=== PATIENT | male | born 1965 | race American Indian/Alaskan Native ===

== ENCOUNTER 2017-07-15 09:48 | Inpatient (IN) | payer OTHER ==
[2017-07-15 09:49] VITALS: BMI 26.5
[2017-07-15 10:33] LABS: BASO # 0.03 K/mm3 (0.0-2.0); BASO % 0.4 % (0.0-3.0); EOS # 0.4 (0.0-0.7); EOS % 5.1 % (1.5-5.0); GRAN # 4.72 (1.4-6.5); GRAN % 67.5 % (50.0-68.0); HEMOGLOBIN 12.4 g/dL (14.0-18.0); LYMPH # 1.3 (1.2-3.4); LYMPH % 18.3 % (22.0-35.0); MEAN CELL VOLUME 92.4 fl (80.0-105.0); MEAN CORPUSCULAR HEMOGLOBIN 31.6 pg (25.0-35.0); MEAN CORPUSCULAR HGB CONC 34.2 g/dl (31.0-37.0); MONO # 0.6 (0.1-0.6); MONO % 8.7 % (1.0-6.0); RBC 3.93 10^6/uL (3.5-6.1); RED CELL DISTRIBUTION WIDTH 15.1 % (11.5-14.5)
[2017-07-15] MEDS ORDERED: Albuterol-Ipratrop 3 mg / 0.5 (3 ml) UD IH STA (10:33)
--- NOTE | 2017-07-15 10:33 | ED PDOC ---
Arrival/HPI - General Chief Complaint: Shortness Of Breath Time Seen by Provider: 07/15/17 09:52 Historian: Patient - History of Present Illness Narrative History of Present Illness (Text): 07/15/17 10:31 Patient is a 52 yo male states past medical history of hypertension, renal disease, presents to the Emergency Department complaining of shortness of breath over the past 3 days. Patient states he "woke up feeling short of breath " and it is worse with exertion and activity. Denies chest pain. Denies abdominal pain. Denies leg pain or swelling. No recent travel. No prior history of asthma or smoking. Denies hemoptysis or productive sputum. No sore throat. Time/Duration: Prior to Arrival Symptom Onset: Gradual Past Medical History - Infectious Disease Hx of Infectious Diseases: None - Tetanus Immunization Tetanus Immunization: Unknown - Cardiac Hx Hypertension: Yes - Pulmonary Hx Respiratory Disorders: No - Neurological Hx Neurological Disorder: No - HEENT Hx HEENT Disorder: No - Renal Hx Renal Disorder: No - Endocrine/Metabolic Hx Endocrine Disorders: No - Hematological/Oncological Hx Blood Disorders: No - Integumentary Hx Dermatological Disorder: No - Musculoskeletal/Rheumatological Hx Musculoskeletal Disorders: No - Gastrointestinal Hx Gastrointestinal Disorders: No - Genitourinary/Gynecological Hx Genitourinary Disorders: No - Psychiatric Hx Psychophysiologic Disorder: No Hx Depression: No Hx Emotional Abuse: No Hx Physical Abuse: No Hx Substance Use: No - Past Surgical History Past Surgical History: Non-Contributing - Suicidal Assessment Feels Threatened In Home Enviroment: No Family/Social History Family/Social History: Unknown Family HX Smoking Status: Never Smoked Hx Alcohol Use: Yes Hx Substance Use: No Allergies/Home Meds Allergies/Adverse Reactions: Allergies lisinopril Allergy (Verified 07/15/17 09:49) ANAPHYLAXIS Home Medications: Home Meds Medication Instructions Recorded Confirmed Simvastatin [Zocor] 0 mg PO DAILY 07/15/17 07/15/17 amLODIPine [Norvasc] 10 mg PO DAILY 07/15/17 07/15/17 cloNIDine [Catapres] 0.1 mg PO BID 07/15/17 07/15/17 Review of Systems - Review of Systems Constitutional: Fatigue. absent: Fevers Eyes: absent: Vision Changes, Eye Pain ENT: absent: Hearing Changes, Sore Throat, Rhinorrhea, Epistaxis Respiratory: SOB, Cough Cardiovascular: BRADEN, Orthopnea. absent: Chest Pain, Palpitations, Edema, Calf Pain Gastrointestinal: absent: Abdominal Pain, Constipation, Diarrhea, Nausea, Vomiting Genitourinary Male: absent: Dysuria, Frequency, Hematuria, Urinary Output Changes Musculoskeletal: absent: Back Pain Skin: absent: Rash Neurological: absent: Headache, Dizziness, Focal Weakness Endocrine: absent: Polyuria Hemo/Lymphatic: absent: Easy Bleeding Physical Exam Vital Signs Reviewed: Yes Vital Signs Temp Pulse Resp BP Pulse Ox 07/15/17 12:22 97.8 F 69 18 172/97 H 98 07/15/17 11:53 188/134 H 07/15/17 11:34 72 19 188/134 H 97 07/15/17 10:26 25 H 07/15/17 10:24 98.3 F 85 19 195/143 H 93 L 07/15/17 10:06 84 196/154 H 07/15/17 09:58 84 22 196/154 H 95 07/15/17 09:50 90 26 H 207/113 H 91 L Temperature: Afebrile Blood Pressure: Hypertensive Respiratory Rate: Tachypneic Appearance: Positive for: Ill-Appearing Pain Distress: Moderate Mental Status: Positive for: Alert and Oriented X 3 - Systems Exam Head: Present: Atraumatic Pupils: Present: PERRL Mouth: Present: Moist Mucous Membranes Pharnyx: No: ERYTHEMA Neck: Present: JVD. No: Meningeal Signs Respiratory/Chest: Present: Wheezes, Rales, Tachypneic Cardiovascular: Present: Regular Rate and Rhythm, Murmurs Abdomen: No: Tenderness, Distention Back: No: CVA Tenderness Upper Extremity: No: Cyanosis Lower Extremity: No: Edema, CALF TENDERNESS Neurological: Present: Motor Func Grossly Intact, Normal Sensory Function Skin: Present: Warm Psychiatric: Present: Alert Medical Decision Making ED Course and Treatment: Patient seen upon arrival to [facility]. He is obviously dyspneic when walking to [facility]. Oxygen saturations on room air on my exam 88-89%. He states shortness of breath for several days. States he sees [facility] for medical care, last was three months ago. He states "I know I have a kidney problem but I don't need dialysis". He does not know what his baseline levels are. CXR reveals cardiomegaly, pulmonary edema. saturations improved on nasal cannula, at rest oxygen saturations 98%. He denies chest pain or discomfort. Blood pressure elevated. Clonidine, norvasc given with improvement INITIALLY in BP, however on re- evaluation blood pressure again elevated. In context of pulmonary edema, abnormal EKG, kidney failure, will admit to ICU for BP control, tridil drip initiated. Will admit to hospitalist, and have consulted on-call renal, who has evaluated patient in the ED. Patient will be admitted to ICU for malignant HTN, renal failure, pulmonary edema. On re-exam, denies pain, appears comfortable at rest. He has urinated after Lasix. He denies chest pain. EKG abnormal although no prior for comparison and currently no chest pain or pressure. Initial troponin 0.10. Will monitor in ICU, care turned over to admitting team. - Critical Care Critical Care Minutes: 30 minutes - Lab Interpretations Lab Results: 07/15/17 10:20 07/15/17 11:29 Lab Results 07/15/17 11:30: TSH 3rd Generation 2.08 07/15/17 11:29: pO2 37, VBG pH 7.30 L, VBG pCO2 39.0 L, VBG HCO3 19.2 L, VBG Total CO2 20.4 L, VBG O2 Sat (Calc) 71.4 H, VBG Base Excess -6.7 L, VBG Potassium 4.7, Sodium 138.0, Chloride 109.0 H, Glucose 107, Lactate 1.7, FiO2 21.0, Venous Blood Potassium 4.7 07/15/17 11:29: Sodium 140, Chloride 108 H, Potassium 4.7, Carbon Dioxide 19 L, Anion Gap 17, BUN 52 H, Creatinine 7.6 H*, Est GFR ( Amer) 9, Est GFR ( Non-Af Amer) 8, Random Glucose 108, Calcium 10.0, Total Bilirubin 0.5, AST 28, ALT 29, Alkaline Phosphatase 131 H, Lactate Dehydrogenase 525, Total Creatine Kinase 182, Troponin I 0.10, NT-Pro-B Natriuret Pep > 89535 H, Total Protein 7.4 , Albumin 3.6, Globulin 3.8, Albumin/Globulin Ratio 1.0 L 07/15/17 10:20: PT 12.1, INR 1.05, APTT 30.6 07/15/17 10:20: Influenza Typ A,B (EIA) Negative for flu a/b 07/15/17 10:20: WBC 7.0, RBC 3.93, Hgb 12.4 L, Hct 36.3 L, MCV 92.4, MCH 31.6, MCHC 34.2, RDW 15.1 H, Plt Count 327, MPV 11.0, Gran % 67.5, Lymph % (Auto) 18.3 L, Craig % (Auto) 8.7 H, Eos % (Auto) 5.1 H, Baso % (Auto) 0.4, Gran # 4.72 , Lymph # (Auto) 1.3, Craig # (Auto) 0.6, Eos # (Auto) 0.4, Baso # (Auto) 0.03 - RAD Interpretation Radiology Orders: 07/15/17 09:59 CHEST PORTABLE [RAD] Stat - Medication Orders Current Medication Orders: Amlodipine Besylate (Norvasc) 10 mg PO DAILY DEREK Aspirin (Aspirin Chewable) 81 mg PO DAILY DEREK Atorvastatin Calcium (Lipitor) 10 mg PO DIN DEREK Clonidine HCl (Catapres) 0.1 mg PO Q8H DEREK Folic Acid (Folic Acid) 1 mg IVP DAILY DEREK Furosemide (Lasix) 100 mg IVP Q12 DEREK Furosemide (Lasix) 20 mg IVP Q12 DEREK Heparin Sodium (Porcine) (Heparin) 5,000 units SC Q8 DEREK PRN Reason: Protocol Hydralazine HCl (Apresoline) 10 mg IVP Q6 PRN PRN Reason: SBP > 150 Last Admin: 07/15/17 16:33 Dose: 10 mg IVP Administration Document 07/15/17 16:33 [facility] (Rec: 07/15/17 16:33 [id number] Charges for Administration # of IVP Administrations 1 JUL Pulse and Blood Pressure Document 07/15/17 16:33 [facility] (Rec: 07/15/17 16:33 [facility] [id number]) Pulse Pulse Rate (60-90 beats/min) 6 Blood Pressure Blood Pressure (100/60-150/90 mm Hg) 172/126 Nitroglycerin/Dextrose (Nitroglycerin 50 Mg/250 Ml D5w) 50 mg in 250 mls @ 3 mls/hr IV .Q24H PRN; Protocol; 10 MCG/MIN PRN Reason: Titrate per protocol Last Admin: 07/15/17 14:36 Dose: 10 mcg/min, 3 mls/hr eMAR Start Stop Document 07/15/17 14:36 [email or web address] (Rec: 07/15/17 14:36 [email or web address] [id number]) Intravenous Solution Start Date 07/15/17 Start Time 14:36 End Date 07/15/17 MAR Pulse and Blood Pressure Document 07/15/17 14:36 [email or web address] (Rec: 07/15/17 14:36 [email or web address] [id number]) Pulse Pulse Rate (60-90 beats/min) 73 Blood Pressure Blood Pressure (100/60-150/90 mm Hg) 178/107 Titration Intervention Document 07/15/17 14:36 [email or web address] (Rec: 07/15/17 14:36 [email or web address] [id number]) Titration Intake Waste Amount 0 Container Volume 250 Titration Dosing Titration Dose 10 IV Rate 3 Intake/Decrease Started Ceftriaxone Sodium (Rocephin 1 Gram Ivpb) 1 gm in 100 mls @ 100 mls/hr IVPB DAILY DEREK PRN Reason: Protocol Last Admin: 07/15/17 16:36 Dose: 100 mls/hr eMAR Start Stop Document 07/15/17 16:36 GLI (Rec: 07/15/17 16:36 GLI [id number]) Intravenous Solution Start Date 07/15/17 Start Time 16:36 End Date 07/15/17 Ondansetron HCl (Zofran Inj) 4 mg IVP Q6H PRN PRN Reason: Nausea/Vomiting Pantoprazole Sodium (Protonix Ec Tab) 40 mg PO 1800 DEREK Thiamine HCl (Vitamin B1 Inj) 100 mg IV DAILY DEREK Last Admin: 07/15/17 16:32 Dose: 100 mg eMAR Start Stop Document 07/15/17 16:32 GLI (Rec: 07/15/17 16:32 GLI [id number]) Intravenous Solution Start Date 07/15/17 Start Time 16:32 End Date 07/15/17 Discontinued Medications Albuterol/Ipratropium (Duoneb 3 Mg/0.5 Mg (3 Ml) Ud) 3 ml IH STAT STA Stop: 07/15/17 10:34 Last Admin: 07/15/17 11:13 Dose: 3 ml Amlodipine Besylate (Norvasc) 10 mg PO STAT STA Stop: 07/15/17 11:43 Last Admin: 07/15/17 11:53 Dose: 10 mg MAR Blood Pressure Document 07/15/17 11:53 [facility]ST (Rec: 07/15/17 11:[id number]) Blood Pressure Blood Pressure (100/60-150/90 mm Hg) 188/134 Atorvastatin Calcium (Lipitor) 20 mg PO DIN DEREK Clonidine HCl (Catapres) 0.2 mg PO ONCE STA Stop: 07/15/17 10:03 Last Admin: 07/15/17 10:06 Dose: 0.2 mg MAR Pulse and Blood Pressure Document 07/15/17 10:06 [facility]ST (Rec: 07/15/17 10:[id number]) Pulse Pulse Rate (60-90 beats/min) 84 Blood Pressure Blood Pressure (100/60-150/90 mm Hg) 196/154 Furosemide (Lasix) 20 mg IVP ONCE ONE Stop: 07/15/17 11:29 Last Admin: 07/15/17 11:53 Dose: 20 mg MAR Blood Pressure Document 07/15/17 11:53 [facility] (Rec: 07/15/17 11:[id number]) Blood Pressure Blood Pressure (100/60-150/90 mm Hg) 188/134 IVP Administration Document 07/15/17 11:53 [facility] (Rec: 07/15/17 11:[id number]) Charges for Administration # of IVP Administrations 1 Furosemide (Lasix) 60 mg IVP STAT STA Stop: 07/15/17 13:02 Last Admin: 07/15/17 13:56 Dose: Furosemide (Lasix) 120 mg IVP STAT STA Stop: 07/15/17 13:57 Last Admin: 07/15/17 14:01 Dose: 120 mg MAR Blood Pressure Document 07/15/17 14:01 [facility]RE (Rec: 07/15/17 14:01 SRE [id number]) Blood Pressure Blood Pressure (100/60-150/90 mm Hg) 174/119 IVP Administration Document 07/15/17 14:01 SRE (Rec: 07/15/17 14:01 SRE [id number]) Charges for Administration # of IVP Administrations 1 Pneumococcal Polyvalent Vaccine (Pneumovax 23 Vaccine) 0.5 ml IM .ONCE ONE Stop: 07/15/17 13:31 Disposition/Present on Arrival - Present on Arrival Any Indicators Present on Arrival: No History of DVT/PE: No History of Uncontrolled Diabetes: No Urinary Catheter: No History of Decub. Ulcer: No History Surgical Site Infection Following: None - Disposition Have Diagnosis and Disposition been Completed?: Yes Diagnosis: Pulmonary edema, Malignant hypertension, Renal failure, Abnormal EKG Disposition: HOSPITALIZED Disposition Time: 11:30 Patient Plan: Admission, ICU Patient Problems: Current Active Problems Problem Status Onset Abnormal EKG Acute Malignant hypertension Acute Pulmonary edema Acute Renal failure Acute Condition: CRITICAL
[2017-07-15 11:09] LABS: INR 1.05 (0.93-1.08); PARTIAL THROMBOPLASTIN TIME 30.6 Seconds (25.1-36.5); PROTHROMBIN TIME 12.1 SECONDS (9.4-12.5)
[2017-07-15 11:38] LABS: VENOUS BLOOD GAS BASE EXCESS -6.7 mmol/L (0.0-2.0); VENOUS BLOOD GAS PO2 37 mm/Hg (30-55)
[2017-07-15 11:45] LABS: ALBUMIN 3.6 g/dL (3.0-4.8); ALT/SGPT 29 U/L (7-56); AST/SGOT 28 U/L (17-59); BLOOD UREA NITROGEN 52 mg/dL (7-21); GFR AFRICAN-AMERICAN 9; GFR NON-AFRICAN AMERICAN 8
--- NOTE | 2017-07-15 11:51 | RAD ---
HISTORY: Shortness of breath. COMPARISON: No prior. FINDINGS: LUNGS: Pulmonary edema, moderate PLEURA: No significant pleural effusion identified, no pneumothorax apparent. CARDIOVASCULAR: Cardiomegaly, CHF. OSSEOUS STRUCTURES: No significant abnormalities. VISUALIZED UPPER ABDOMEN: Normal. OTHER FINDINGS: None. IMPRESSION: Cardiomegaly/congestive heart failure with moderate pulmonary edema.
[2017-07-15 11:57] LABS: B-TYPE NATRIURETIC PEPTIDE > 35000 pg/mL (0-450)
[2017-07-15] MEDS ORDERED: Nitroglycerin 50mg in D5W 50 MG/250 ML BOTTLE IV PRN (12:20)
[2017-07-15] MEDS ORDERED: Influenza Vaccine 60 mcg/0.5 mL SYR (4YR UP) IM ONE (13:30)
[2017-07-15] MEDS ORDERED: Pneumococcal 23-Valent Vaccine IM ONE (13:30)
[2017-07-15] MEDS ORDERED: Thiamine 100 mg/ml Inj IV STA (14:06)
[2017-07-15 14:27] LABS: URINE APPEARANCE CLEAR (CLEAR); URINE BILIRUBIN NEGATIVE (NEGATIVE); URINE BLOOD SMALL (NEGATIVE); URINE COLOR YELLOW (YELLOW); URINE GLUCOSE (UA) NEGATIVE (NEGATIVE); URINE LEUKOCYTE ESTERASE MODERATE Leu/uL (NEGATIVE); URINE PROTEIN 100 mg/dL (<30 mg/dL); URINE UROBILINOGEN 0.2 E.U./dL (<1 E.U./dL)
[2017-07-15 14:35] LABS: URINE BACTERIA FEW (NEG); URINE EPITHELIAL CELLS 0 - 2 /hpf (0-5); URINE RBC 0 - 2 /hpf (0-2)
--- NOTE | 2017-07-15 15:09 | CP.PCM.HP ---
<Frankie Nelson - Last Filed: 07/15/17 15:32> History of Present Illness - History of Present Illness History of Present Illness: Internal Medicine H&P for Hospitalist Service CC: Shortness of breath x3 days HPI: This is a 52 yo M with PMH HTN, CKD, substance abuse (cocaine), alcohol abuse, and chronic non-compliance who [place] [facility] [place] complaint of progressively worsening shortness of breath x3 days. Of note, HPI and ROS are of limited utility in this patient, as he is an extremely poor historian; giving multiple and very different accounts to different staff members. As per patient to this examiner, shortness of breath began 3 days ago, initially only present with exertion and improved with rest, but has worsened to the point of being constantly short of breath, even at rest. Reports worsening of shortness of breath with lying down or any exertion, baseline dry cough, decreased urine output, and general malaise, but denies chest pain, nausea, emesis, dysuria, hematuria, urinary frequency, anuria, hemoptysis or pink frothy sputum, syncope/ near-syncope, or fevers/chills. All other ROS in 12-system review negative. Patient is unable to describe amount of urine he passes regularly, but when shown a bedside urinal and asked if he makes enough urine to fill the urinal at least once a day, he replies in the affirmative. Of note, admits to cocaine use regularly for > 20 years, 2-3x per week, last use 2 days prior to admission, but only reports smoking or snorting, never injecting; however he does admit to injecting it to other staff, last injection use unclear. Patient also reports compliance with meds and follow up to this examiner, and denies alcohol abuse, but admits to the opposite of both to other examiners. PMH: As above PSH: denies Fam Hx: unspecified gastric disease (reports killed his mother, no further details), HTN (Father), DM (Brother), Renal disease (Brother) Soc Hx: to me, reports ~1/4 ppd cigarettes daily for > 30 yrs, mild EtOH on weekends (2-3 beers/day), cocaine 2-3x per week (snorting or smoking), and denies IVDA; however, admits to EtOH abuse to other staff, and injecting cocaine to other staff PMD: doesn't know the name, reports following up with physicians at the [place], med list confirmed with [facility] Meds: Allopurinol 100mg BID, Amlodipine 10mg daily, Ammonia lactate cream TOP BID, Atenolol 25mg daily, Clonidine 0.1mg BID, Vit D3 1000 units daily, B12 injections 1000 ug daily, miconazole cream TOP BID, Sildenafil 100mg PRN, Urea cream TOP daily Present on Admission - Present on Admission Any Indicators Present on Admission: No History of DVT/PE: No History of Uncontrolled Diabetes: No Urinary Catheter: No Review of Systems - Review of Systems All systems: reviewed and no additional remarkable complaints except (as per HPI ) Past Patient History - Infectious Disease Hx of Infectious Diseases: None - Tetanus Immunizations Tetanus Immunization: Unknown - Past Social History Smoking Status: Light Smoker < 10 Cigarettes Daily - CARDIAC Hx Hypercholesterolemia: Yes Hx Hypertension: Yes Hx Peripheral Edema: Yes (b/l feet +1) - PULMONARY Hx Respiratory Disorders: No - NEUROLOGICAL Hx Neurological Disorder: No - HEENT Hx HEENT Problems: Yes Other/Comment: 0.3 round brown growth on left eyelid x1 week, pt denies any vision problems, missing teeth - RENAL Hx Chronic Kidney Disease: No - ENDOCRINE/METABOLIC Hx Endocrine Disorders: No - HEMATOLOGICAL/ONCOLOGICAL Hx Blood Disorders: No - INTEGUMENTARY Hx Dermatological Problems: Yes Other/Comment: dry scaley discolored feet, and thick toenails, strong foul smell to feet, right 5th toe callus 1cm round hard brown skin, dry brown 0.5cm round wound to outer right ankle, healed surgical scar to abd from hernia sx, healed surgical scar to right wrist from r wrist sx - MUSCULOSKELETAL/RHEUMATOLOGICAL Hx Falls: No - GASTROINTESTINAL Hx Gastrointestinal Disorders: No - GENITOURINARY/GYNECOLOGICAL Hx Genitourinary Disorders: No - PSYCHIATRIC Hx Substance Use: Yes (snorts cocaine 20 yrs) - SURGICAL HISTORY Hx Surgeries: Yes Other/Comment: sx for r wrist fx with pins from a fall about 10 yrs ago, abd hernia sx Meds Allergies/Adverse Reactions: Allergies Allergy/AdvReac Type Severity Reaction Status Date / Time lisinopril Allergy ANAPHYLAXIS Verified 07/15/17 09:49 Physical Exam - Constitutional Appears: Non-toxic, Chronically Ill Additional comments: Poor state of health and poor hygeine, mild distress appearing due to repetitive short breaths but not overtly in distress, not complaining of acute distress, and able to speak full sentences without stopping for breaths - Head Exam Head Exam: ATRAUMATIC, NORMOCEPHALIC - Eye Exam Eye Exam: EOMI, PERRL. absent: Conjunctival injection, Normal appearance, Scleral icterus (dirty sclera with jeffry discoloration spots, but not grossly icteric) Pupil Exam: NORMAL ACCOMODATION, PERRL. absent: Fixed, Irregular, Unequal Additional comments: bilateral borderline exophthalmos - ENT Exam ENT Exam: Mucous Membranes Moist - Neck Exam Neck exam: Positive for: Full Rom. Negative for: Lymphadenopathy, Normal Inspection, Tenderness, Thyromegaly Additional comments: JVD up past midpoint of neck, worse with hepatic pressure application (+ hepatojugular reflex) No stridor ausculated No radiation of murmurs into Right carotid - Respiratory Exam Additional comments: Taking frequent shallow breaths with some abdominal effort, no accessory muscle use, not dyspnic with speech, not gasping for air Satting well on bedside monitor Diffuse crackles in all lung coley, most prominent at bilateral bases Mild-moderately decreased breath sounds in all coley No wallace cyanosis noted at fingertips or lips - Cardiovascular Exam Cardiovascular Exam: REGULAR RHYTHM, JVD (as described in Neck exam), RRR, +S1, +S2. absent: Bradycardia, Tachycardia, Clicks, Irregular Rhythm, +S4 Additional comments: +2 radial pulses bilaterally, faintly palpable dorsalis pedis pulses bilaterally Prominent S2 Point of Maximal impulse along left mid-axillary region between 4th and 5th rib , easily palpable - GI/Abdominal Exam GI & Abdominal Exam: Normal Bowel Sounds, Soft. absent: Distended, Firm, Guarding, Hernia, Organomegaly, Rigid, Tenderness Additional comments: no shifting dullness or palpable fluid wave - Exam Additional comments: No scrotal edema - Extremities Exam Extremities exam: Negative for: calf tenderness, normal inspection Additional comments: waxy and hairless bilateral lower extremities faintly palpable dorsalis pedis pulses bilaterally no bilateral pitting edema or tenderness sensation to touch in bilateral LE intact - Neurological Exam Neurological exam: Alert, Oriented x3 - Psychiatric Exam Psychiatric exam: Anxious, Normal Affect - Skin Skin Exam: Dry, Intact, Normal Color, Warm Results - Vital Signs Recent Vital Signs: Last Vital Signs Temp 98.0 F 07/15/17 14:20 Pulse 70 07/15/17 14:20 Resp 29 H 07/15/17 14:20 BP 178/107 H 07/15/17 14:20 Pulse Ox 98 07/15/17 14:20 - Labs Result Diagrams: 07/15/17 10:20 07/15/17 11:29 Labs: Laboratory Results - last 24 hr 07/15/17 07/15/17 14:14 14:15 Urine Color Yellow Urine Appearance Clear Urine pH 6.0 Ur Specific [place] 1.020 Urine Protein 100 H Urine Glucose (UA) Negative Urine Ketones Negative Urine Blood Small H Urine Nitrate Negative Urine Bilirubin Negative Urine Urobilinogen 0.2 Ur Leukocyte Esterase Moderate H Urine RBC 0 - 2 Urine WBC 10 - 15 Ur Epithelial Cells 0 - 2 Urine Bacteria Few U Random Total Protein 178 Assessment & Plan - Assessment and Plan (Free Text) Assessment: This is a 52 yo M with PMH HTN, CKD, substance abuse (cocaine), alcohol abuse, and chronic non-compliance who presents [place] [facility] [place] complaint of progressively worsening shortness of breath x3 days. His initial imaging is highly concerning for cardiomegaly and fluid overload, and his renal function on labs is highly concerning for possible acute renal failure overlying CKD. Plan: 1) Progressive shortness of breath -acute congestive heart failure vs exacerbation of previously undiagnosed heart failure vs COPD exacerbation vs PE vs fluid overload 2/2 renal failure vs ACS vs alcohol-induced cardiomyopathy -CXR in ED notable for cardiomegaly and pulmonary edema bilaterally, no pleural effusions noted -BNP > 12595 in ED -high risk for ACS in setting of active cocaine abuse and active use of beta- blockers, risk for WA -smoking history, still actively using tobacco, so possible there is COPD component as well, but not acutely wheezing, and fluid overload more obvious etiology at this time -Satting well on nasal canula (>93%), but frequently taking rapid shallow breaths, likely secondary to fluid overload, if develops worsening respiratory distress can consider BiPAP and starting on Tridil drip -Given reported substance abuse, reported IVDA, and presentation, concern for possible infective endocarditis; less likely due to lack of fevers, but will need Echo to rule out -Echo ordered, f/u -trop x1 indeterminate at 0.10, trending q8, if worsening or acutely elevated with start on therapeutic anticoagulation -Cardio consulted, appreciate all recs -started on Asa 81mg daily, converting home statin dose to Lipitor 10mg daily ( on simvastatin 20mg daily at home, [facility]) -AVOID beta-blockers in this patient, due to repeated and recent cocaine abuse -Urine drug screen ordered, serum alcohol level ordered 2) Hypertensive urgency/emergency -BP 200's/120's-150's in the ED -signs of end-organ damage on labs, but likely chronic damage in case of kidneys , and patient denies overt neurological sx (dizziness, syncope, near-syncope), so more likely hypertensive urgency -likely non-compliant with home Clonidine and Amlodipine, restarting home amlodipine 10mg daily ([facility]), started on Clonidine 0.1mg q8 as per Nephro -Nephro consulted, appreciate all recs -Hydralazine IVP q6 PRN for SBP > 150 ordered 3) Severely elevated creatinine with signs of fluid overload -concerns for acute renal failure, likely overlying CKD based on patient's reported history and hx of non-compliance -Nephro following, appreciate all recs; pt high-risk for needing dialysis, will determine based on current urine output -put out approximately 250cc after receiving 80mg IVP lasix in ED, one-time dose of 120mg IVP added as per Nephro, recs IVP Lasix 120mg q12 -UA concerning for possible cystitis, need to also consider pyelonephritis in setting of acute renal failure; started on rocephin 1g daily IVPB -urine and blood cultures ordered, follow up -Complete abdominal US ordered, f/u -Urine electrolytes, urea, and creatinine ordered, urine and serum osms ordered , f/u -Strict I's & O's, daily weights 4) Hx Alcohol and substance abuse -CIWA protocol ordered -Serum alcohol and Urine drug screen pending -avoid hepato and nephro-toxic agents -Hepatitis panel ordered, HIV with reflex ordered, RPR ordered, GC/Chalmydia ordered, f/u -continue to monitor LFTs and coags daily -Thiamine and Folic acid supplements IV daily, avoid Banana-bag in setting of fluid overload and concern for acute congestive heart failure/acute renal failure Dispo: ICU, pending Cardio recs, additional Nephro recs, measurement of urine output in response to IV lasix, determination for possible dialysis FEN: NPO except meds, avoid IVF due to fluid overloaded state, high aspiration risk given rapid-shallow breathing Access: Peripheral IV, will need Shiley dialysis cath or AV graft if requiring dialysis Consults: Nephro, Cardio, ICU Ppx: Protonix for GI, Heparin SC for DVT Patient seen, reviewed, and discussed with attending, Dr. Bliss Decision To Admit - Pt Status Changed To: Hospital Disposition Of: Inpatient Admission - Admit Certification Admit to Inpatient:: After my assessment, the patient will require hospitalization for at least two midnights. This is because of the severity of symptoms shown, intensity of services needed, and/or the medical risk in this patient being treated as an outpatient. - . Bed Request Type: Telemetry <Bal Bliss - Last Filed: 07/24/17 07:32> Results - Vital Signs Recent Vital Signs: Last Vital Signs Temp 98.3 F 07/20/17 07:34 Pulse 70 07/20/17 17:25 Resp 20 07/20/17 07:34 BP 137/86 07/20/17 17:25 Pulse Ox 96 07/20/17 07:34 - Labs Result Diagrams: 07/20/17 08:00 07/20/17 08:00 Attending/Attestation - Attestation I have personally seen and examined this patient.: Yes I have fully participated in the care of the patient.: Yes I have reviewed all pertinent clinical information: Yes Notes (Text): 07/24/17 07:29 Patient was seen and examined with medical administrative technician. Agreed with the assessment and plan 52 yrs old male with PMH of HTN,CKD , drug abuse, chronic smoker, [facility] ,was [facility] graft for dialysis,, non compliance is admitted with acute acute on chronic renal failure creatinine 7.5, uncontrolled HTN and CHF/Fluid overload. We will start patient on IV lasix, ,will get 2D Echo, We will get Nephrology and cardiology consult, patient may need dialysis if renal function will not improve. Management plan was discussed in detail with patient and famill. Education was provided.
[2017-07-15] MEDS: Thiamine 100 mg/ml Inj IV SCH (16:32)
[2017-07-15] MEDS: cefTRIAXone 1 gm 1 GM/100 ML BAG IVPB SCH (16:36)
--- NOTE | 2017-07-15 16:46 | CARD ---
APPROVED REPORT EKG Measurement Heart [id number] <Conclusion> Normal sinus rhythm Possible Left atrial enlargement Cannot rule out Anterior infarct, age undetermined T wave abnormality, consider lateral ischemia Abnormal ECG
[2017-07-15] MEDS: Pantoprazole 40 mg EC Tab PO SCH (17:10)
[2017-07-15 17:59] LABS: BARBITURATES, UR NEGATIVE (NEGATIVE)
[2017-07-15 18:58] LABS: BENZODIAZEPINES, UR NEGATIVE (NEGATIVE); OPIATES, UR NEGATIVE (NEGATIVE); PHENCYCLIDINE, UR NEGATIVE (NEGATIVE)
--- NOTE | 2017-07-15 22:29 | CP.PCM.CON ---
History of Present Illness - History of Present Illness History of Present Illness: 52 yo M w/ pmh of htn, CKD, presented to ED today with worsening shortness of breath, nephrology being consulted for advanced renal insufficiency; Patient reports being told about his CKD status and even about the impending need for dialysis several years ago; is unclear about when he last followed up with any doctor; He reports generally taking his BP meds regularly but missed taking them the past 2 days while at his brother's home; he reports increasing shortness of breath since the past week; has also been nauseous with decreased PO intake over past several days; otherwise denies vomiting; was previously eating well; Patient does admit to palpitations; currently with headache; reports using cocaine 2 days ago; He otherwise denies any leg swelling; doesn't note any change in urination; Gives history of sporadic use of Alleve (not even once a week); Review of Systems - Constitutional Constitutional: Anorexia - EENT Eyes: Blurred Vision Nose/Mouth/Throat: absent: Nasal Discharge, Sore Throat - Cardiovascular Cardiovascular: Dyspnea on Exertion, Palpitations - Respiratory Respiratory: Cough, Dyspnea - Gastrointestinal Gastrointestinal: Nausea. absent: Vomiting - Genitourinary Genitourinary: absent: Difficulty Urinating - Musculoskeletal Musculoskeletal: absent: Arthralgias, Back Pain - Integumentary Integumentary: absent: Pruritus, Rash - Neurological Neurological: Headaches. absent: Dizziness - Psychiatric Psychiatric: absent: Anxiety, Depression Past Patient History - Infectious Disease Hx of Infectious Diseases: None - Tetanus Immunizations Tetanus Immunization: Unknown - Past Medical History & Family History Past Medical History?: Yes Pertinent Family History: brother with CKD, not yet on dialysis - Past Social History Smoking Status: Light Smoker < 10 Cigarettes Daily Drugs: Cocaine - CARDIAC Hx Hypertension: Yes - PULMONARY Hx Respiratory Disorders: No - NEUROLOGICAL Hx Neurological Disorder: No - HEENT Hx HEENT Problems: No - RENAL Hx Chronic Kidney Disease: No - ENDOCRINE/METABOLIC Hx Endocrine Disorders: No - HEMATOLOGICAL/ONCOLOGICAL Hx Blood Disorders: No - INTEGUMENTARY Hx Dermatological Problems: No - MUSCULOSKELETAL/RHEUMATOLOGICAL Hx Musculoskeletal Disorders: No - GASTROINTESTINAL Hx Gastrointestinal Disorders: No - GENITOURINARY/GYNECOLOGICAL Hx Genitourinary Disorders: No - PSYCHIATRIC Hx Psychophysiologic Disorder: No Hx Depression: No Hx Emotional Abuse: No Hx Physical Abuse: No Hx Substance Use: No - SURGICAL HISTORY Hx Surgeries: Yes Other/Comment: sx for r wrist fx with pins from a fall about 10 yrs ago, abd hernia sx Meds Allergies/Adverse Reactions: Allergies Allergy/AdvReac Type Severity Reaction Status Date / Time lisinopril Allergy ANAPHYLAXIS Verified 07/15/17 09:49 - Medications Medications: Current Medications Acetaminophen (Tylenol 325mg Tab) 650 mg PO Q6H PRN PRN Reason: Headache Last Admin: 07/15/17 21:31 Dose: 650 mg Amlodipine Besylate (Norvasc) 10 mg PO DAILY [facility] Aspirin (Aspirin Chewable) 81 mg PO DAILY [facility] Atorvastatin Calcium (Lipitor) 10 mg PO DIN [facility] Last Admin: 07/15/17 17:09 Dose: 10 mg Clonidine HCl (Catapres) 0.1 mg PO Q8H [facility] Last Admin: 07/15/17 17:04 Dose: 0.1 mg Folic Acid (Folic Acid) 1 mg IVP DAILY [facility] Last Admin: 07/15/17 17:14 Dose: 1 mg Furosemide (Lasix) 100 mg IVP Q12 [facility] Last Admin: 07/15/17 21:30 Dose: 100 mg Furosemide (Lasix) 20 mg IVP Q12 [facility] Last Admin: 07/15/17 21:30 Dose: 20 mg Heparin Sodium (Porcine) (Heparin) 5,000 units SC Q8 [facility] PRN Reason: Protocol Last Admin: 07/15/17 21:29 Dose: 5,000 units Hydralazine HCl (Apresoline) 10 mg IVP Q6 PRN PRN Reason: SBP > 150 Last Admin: 07/15/17 16:33 Dose: 10 mg Hydralazine HCl (Apresoline) 25 mg PO Q6H [facility] Last Admin: 07/15/17 20:03 Dose: 25 mg Nitroglycerin/Dextrose (Nitroglycerin 50 Mg/250 Ml D5w) 50 mg in 250 mls @ 3 mls/hr IV .Q24H PRN; Protocol; 10 MCG/MIN PRN Reason: Titrate per protocol Last Titration: 07/15/17 16:00 Dose: 20 mcg/min, 6 mls/hr Ceftriaxone Sodium (Rocephin 1 Gram Ivpb) 1 gm in 100 mls @ 100 mls/hr IVPB DAILY [facility] PRN Reason: Protocol Last Admin: 07/15/17 16:36 Dose: 100 mls/hr Ondansetron HCl (Zofran Inj) 4 mg IVP Q6H PRN PRN Reason: Nausea/Vomiting Pantoprazole Sodium (Protonix Ec Tab) 40 mg PO 1800 [facility] Last Admin: 07/15/17 17:10 Dose: 40 mg Thiamine HCl (Vitamin B1 Inj) 100 mg IV DAILY [facility] Last Admin: 07/15/17 16:32 Dose: 100 mg Physical Exam - Constitutional Appears: Non-toxic Additional comments: mild respiratory distress - Eye Exam Eye Exam: Normal appearance. absent: Scleral icterus - ENT Exam ENT Exam: Mucous Membranes Moist - Neck Exam Neck exam: Negative for: Lymphadenopathy, Thyromegaly - Respiratory Exam Respiratory Exam: Rales, Respiratory Distress. absent: Rhonchi - Cardiovascular Exam Cardiovascular Exam: RRR, +S1, +S2. absent: Gallop - Exam Exam: absent: Bladder Distension - Extremities Exam Extremities exam: Positive for: pedal pulses present Additional comments: no leg edema; - Neurological Exam Neurological exam: Alert, Oriented x3 Additional comments: no numbness of feet; no overt asterixis; - Skin Skin Exam: Warm Additional comments: dry scaliness of b/l soles, no foot ulcers; Results - Vital Signs Recent Vital Signs: Last Vital Signs Temp 98.1 F 07/15/17 20:00 Pulse 70 07/15/17 20:03 Resp 31 H 07/15/17 20:00 BP 186/93 H 07/15/17 21:30 Pulse Ox 96 07/15/17 20:00 - Labs Result Diagrams: 07/15/17 10:20 07/15/17 11:29 Labs: Laboratory Results - last 24 hr 07/15/17 07/15/17 07/15/17 14:14 14:15 15:30 Troponin I Urine Color Yellow Urine Appearance Clear Urine pH 6.0 Ur Specific [place] 1.020 Urine Protein 100 H Urine Glucose (UA) Negative Urine Ketones Negative Urine Blood Small H Urine Nitrate Negative Urine Bilirubin Negative Urine Urobilinogen 0.2 Ur Leukocyte Esterase Moderate H Urine RBC 0 - 2 Urine WBC 10 - 15 Ur Epithelial Cells 0 - 2 Urine Bacteria Few Urine Osmolality Ur Random Creatinine U Random Total Protein 178 Ur Random Sodium Ur Random Potassium Urine Opiates Screen Urine Methadone Screen Ur Barbiturates Screen Ur Phencyclidine Scrn Ur Amphetamines Screen U Benzodiazepines Scrn U Oth Cocaine Metabols U Cannabinoids Screen Alcohol, Quantitative < 10 07/15/17 07/15/17 07/15/17 17:12 17:12 17:12 Troponin I Urine Color Urine Appearance Urine pH Ur Specific [place] Urine Protein Urine Glucose (UA) Urine Ketones Urine Blood Urine Nitrate Urine Bilirubin Urine Urobilinogen Ur Leukocyte Esterase Urine RBC Urine WBC Ur Epithelial Cells Urine Bacteria Urine Osmolality 289 L Ur Random Creatinine 30 U Random Total Protein Ur Random Sodium 116 Ur Random Potassium 13.0 Urine Opiates Screen Negative Urine Methadone Screen Negative Ur Barbiturates Screen Negative Ur Phencyclidine Scrn Negative Ur Amphetamines Screen Negative U Benzodiazepines Scrn Negative U Oth Cocaine Metabols Positive H U Cannabinoids Screen Negative Alcohol, Quantitative 07/15/17 19:50 Troponin I 0.11 Urine Color Urine Appearance Urine pH Ur Specific [place] Urine Protein Urine Glucose (UA) Urine Ketones Urine Blood Urine Nitrate Urine Bilirubin Urine Urobilinogen Ur Leukocyte Esterase Urine RBC Urine WBC Ur Epithelial Cells Urine Bacteria Urine Osmolality Ur Random Creatinine U Random Total Protein Ur Random Sodium Ur Random Potassium Urine Opiates Screen Urine Methadone Screen Ur Barbiturates Screen Ur Phencyclidine Scrn Ur Amphetamines Screen U Benzodiazepines Scrn U Oth Cocaine Metabols U Cannabinoids Screen Alcohol, Quantitative - Imaging and Cardiology Chest x-ray Status: Image reviewed by me Additional comment: pulm vascular congestion present Assessment & Plan (1) Renal failure Assessment and Plan: Baseline serum creatinine unknown but US showing diffusely echogenic kidneys consistent with advanced CKD; presented with volume overload in the setting of uncontrolled HTN and cocaine use; urine output responding well to bolus dose of IV lasix 120 mg; electrolyte status relatively stable; can likely hold off on initiating HD until Monday when a tunneled HD catheter can be placed, but should be monitored closely should respiratory status worsen; -continue lasix 120 mg IVP q12h -avoid all nephrotoxic meds (NSAIDS, phosphate fleets enema; careful use of antibiotics); -checking CKD parameters (PTH, vit D 25-OH level, iron studies); -keep NPO past midnight on Monday for tunneled HD catheter on Monday (will discuss with patient); Status: Acute (2) Hypertensive emergency Assessment and Plan: Rebound htn in the setting of missing meds including clonidine, also with volume overload; -agree with nitro drip -clonidine 0.1 mg q8h; -amlodipine 10 mg daily; -hydralazine 25 mg PO q6h; 20 mg IVP prn q4h for SBP > 180; -continue IV lasix as above; Status: Acute (3) CHF (congestive heart failure) Assessment and Plan: Acute severely decompensated CHF in the setting of advanced renal failure; awaiting echo to assess LV function; Status: Acute (4) Metabolic acidosis Assessment and Plan: Relatively mild; will avoid bicarb replenishment for now as this can worsen volume overload; Status: Acute (5) Proteinuria Assessment and Plan: 2+ proteinuria on UA; will obtain random urine protein/creatinine to quantify; agree with serologic workup for proteinuric CKD (hepatitis B, C; HIV; RPR; C3, C4; FIDEL; ANCA w/ MPO and PR3 Ab - especially with cocaine use); Status: Acute (6) Pyuria Assessment and Plan: Not symptomatic but agree with obtaining urine culture to r/o UTI; Status: Acute - Assessment and Plan (Free Text) Assessment: Critical care time spent assessing patient and discussing with ED, CCM and primary teams > 35 minutes;
--- NOTE | 2017-07-16 03:09 | CON ---
DATE: 07/15/2017 LOCATION: The patient in CCU 129, bed 1. REASON FOR CONSULTATION: CHF, hypertension, and renal failure. HISTORY OF PRESENT ILLNESS: A 52-year-old male with a longstanding history of hypertension, ethanol abuse, cocaine abuse, and very poor compliance with medication, who states that since last 3 days, he has been having shortness of breath, which has gradually gotten worse. Initially, it was an exertion, but later on at rest also, he feels shortness of breath. Denies any chest pain or palpitation. PAST MEDICAL HISTORY: Positive for hypertension, longstanding, and high cholesterol. The patient also had a hernia surgery. PERSONAL HISTORY: Drinks heavily in the weekends. Uses cocaine 2-3 times a week. Smokes 2 cigarettes a day. MEDICATIONS: At home, include amlodipine 10 mg daily; Zocor, dose is not known; clonidine 0.1 mg b.i.d.; atenolol 25 mg daily; B12 injection. ALLERGIES: THE PATIENT STATES THAT HE IS ALLERGIC TO LISINOPRIL, STATES THAT HE GETS SWELLING WHEN HE USES IT. FAMILY HISTORY: Positive for hypertension. PHYSICAL EXAMINATION: VITAL SIGNS: Blood pressure 172/126, respirations 20, pulse 61, and temperature 97.8. HEENT: Head is normocephalic. Pupils are normal. Conjunctivae normal. NECK: JVP is slightly elevated. LUNGS: Basilar rales. CARDIOVASCULAR: S1 and S2. ABDOMEN: Soft, nontender. No organomegaly. Bowel sounds are normal. EXTREMITIES: No clubbing. No cyanosis. LABORATORY DATA: WBC 7.0, hemoglobin 12.4, hematocrit 36.3, and platelets 327. Sodium 140, potassium 4.7, BUN 52, creatinine 7.6, and calcium 10.0. AST and ALT normal, alkaline phosphatase 131. Troponin 0.10. NT-pro B-type natriuretic peptide 35,000. Total protein 7.4 and albumin 3.6. Chest x-ray is consistent with CHF. EKG shows regular sinus rhythm, LVH, ST-T changes. DIAGNOSES: Congestive heart failure, volume overload, renal failure, uncontrolled hypertension, poor compliant patient, ethanol abuse, tobacco abuse, cocaine abuse, and hyperlipidemia. PLAN: The patient on hydralazine 10 mg IV q.6 hours p.r.n., aspirin 81 mg daily, clonidine 0.1 mg q.8 hours, heparin 5000 units subcutaneously q.8 hours, furosemide 100 mg IV q.12 hours, agree with that, and Lipitor 10 mg daily. The patient is also on nitroglycerin drip for high blood pressure, amlodipine 10 mg daily, Protonix 40 mg p.o. daily, ceftriaxone 1 g IV daily, thiamine 100 mg IV daily. Echo has been already requested. Repeat labs have been already requested for tomorrow. TSH has been also scheduled for tomorrow. We will add lipid panel to tomorrow's blood work and we will follow with you. Bal Williamson MD
--- NOTE | 2017-07-16 03:41 | CON ---
BRIDGE ATTACHER CONSULT LOCATION: [facility]. REQUESTING PHYSICIAN: Dr. Hernandez. CHIEF COMPLAINT: The patient presents with shortness of breath, states that it has increased over the last 3 days. HISTORY OF PRESENT ILLNESS: Mr. Bravo is a 52-year-old male with a history of hypertension and chronic renal disease. The patient presented with shortness of breath over the last 3 days, it had increased dramatically. He states that it awoke him up and it increased with activity as well. No complaints of fever, chills, nausea or vomiting. No abdominal pain. No chest pain. No wheezing. PAST MEDICAL HISTORY: As above. ALLERGIES: HE HAS ALLERGIES TO LISINOPRIL. MEDICATIONS: Could be evaluated as per the nurses intake form. SOCIAL HISTORY: No history of smoking, but does have social EtOH use. No history of drug abuse. FAMILY HISTORY: Family history is noncontributory. REVIEW OF SYSTEMS: CONSTITUTIONAL: The patient does have some fatigue. HEENT: All within normal limits. RESPIRATORY: He had the shortness of breath and cough. CARDIOVASCULAR: Dyspnea on exertion, orthopnea. GASTROINTESTINAL: All negative. : All negative. MUSCULOSKELETAL: All negative. NEUROPSYCHIATRIC: All negative. ENDOCRINE: All negative. HEMATOLOGIC: All negative. IMMUNOLOGIC: All negative. INTEGRITY: All negative. PHYSICAL EXAMINATION: VITAL SIGNS: Temperature is 98.3, pulse is 90, respirations are 26 and BP is 107/113. O2 saturation is 91 on 2 liters of nasal cannula. HEENT: Head is atraumatic, normocephalic. Eyes reactive to light. Ears, nose and throat seem to be within normal limits. NECK: Supple. No JVD. No thyroid enlargement. No lymph nodes. HEART: Has regular rate and rhythm. Normal S1, S2. LUNGS: Reveal rare rhonchi at the bases. ABDOMEN: Soft. Decreased bowel sounds. GENITALIA AND RECTAL: Deferred. MUSCULOSKELETAL: No joint deformities. EXTREMITIES: Reveal trace lower extremity edema. NEUROLOGIC: He seemed to be grossly intact. LABORATORY DATA: As far as his laboratories, his white count is 7.0, hemoglobin is 12.4, hematocrit 36.3 with platelets of 227,000. Venous blood gas reveals a pH of 7.30, pCO2 of 39, pO2 of 37. As far as his sodium is 140, potassium 4.7, chloride 108, CO2 of 19 with a BUN of 52, creatinine of 7.6. The patient's BNP is 35,000. As far as his chest x-ray, the patient has cardiomegaly with congestive heart failure/moderate pulmonary edema. IMPRESSION: This patient has moderate pulmonary edema. He has acute on chronic renal failure and symptomatic hypertension and we must rule out some form of cardiac ischemia as well. PLAN: We will continue with O2 via nasal cannula. The patient is getting Lasix for appropriate diuresis. Renal has been consulted and if need be he will get dialysis over the weekend. The patient is on hydralazine, chewable aspirin, Catapres as well as folic acid and heparin subcu. He has been started on Lipitor as well as nitroglycerin IV and the patient is on Protonix as well as Rocephin, Zofran and vitamin B1. We will continue to treat aggressively along with the other consultants and the primary care doctor. Nader Wayne MD
[2017-07-16 06:08] LABS: BASO # 0.02 K/mm3 (0.0-2.0); BASO % 0.3 % (0.0-3.0); EOS # 0.3 (0.0-0.7); EOS % 4.7 % (1.5-5.0); GRAN # 5.18 (1.4-6.5); GRAN % 71.8 % (50.0-68.0); HEMOGLOBIN 11.5 g/dL (14.0-18.0); LYMPH # 1.2 (1.2-3.4); LYMPH % 16.1 % (22.0-35.0); MEAN CELL VOLUME 90.9 fl (80.0-105.0); MEAN CORPUSCULAR HEMOGLOBIN 30.8 pg (25.0-35.0); MEAN CORPUSCULAR HGB CONC 33.9 g/dl (31.0-37.0); MEAN PLATELET VOLUME 10.6 fl (7.0-11.0); MONO # 0.5 (0.1-0.6); MONO % 7.1 % (1.0-6.0); RBC 3.73 10^6/uL (3.5-6.1); RED CELL DISTRIBUTION WIDTH 14.6 % (11.5-14.5); WHITE BLOOD COUNT 7.2 10^3/ul (4.5-11.0)
[2017-07-16 06:13] LABS: ALBUMIN 3.6 g/dL (3.0-4.8); CALCIUM 10.1 mg/dL (8.4-10.5)
[2017-07-16 06:22] LABS: INR 1.08 (0.93-1.08); PROTHROMBIN TIME 12.4 SECONDS (9.4-12.5)
[2017-07-16 06:24] LABS: TROPONIN I 0.1 ng/mL
[2017-07-16] MEDS: Thiamine 100 mg/ml Inj IV SCH (10:04)
--- NOTE | 2017-07-16 10:05 | CP.PCM.PN ---
<Frankie Nelson - Last Filed: 07/16/17 09:53> Subjective - Date & Time of Evaluation Date of Evaluation: 07/16/17 Time of Evaluation: 07:15 - Subjective Subjective: IM Progress Note for Hospitalist Service Patient seen and examined at bedside in ICU. Overnight, patient's blood pressure became increasingly difficult to control, requiring him to be started on a Tridil drip, which has been titrated up to 30 mcg/min. Currently, BP is stable at 130's-140s/70's-90's. Patient is somewhat somnolent but arousable, rapidly returns to somnolence. Only acute complaint is headache, denies chest pain, nausea, emesis, diarrhea, hematuria, dysuria. Still making urine, put out approximately 3 liters overnight, and reports improvement of his shortness of breath that he was admitted for. Objective - Vital Signs/Intake and Output Vital Signs (last 24 hours): Temp Pulse Resp BP Pulse Ox 97.8 F 64 24 156/90 H 93 L 07/16/17 04:00 07/16/17 08:23 07/16/17 07:40 07/16/17 08:23 07/16/17 07:50 Intake and Output: 07/16/17 07/16/17 06:59 18:59 Intake Total Output Total Balance - Medications Medications: Current Medications Acetaminophen (Tylenol 325mg Tab) 650 mg PO Q6H PRN PRN Reason: Headache Last Admin: 07/16/17 05:39 Dose: 650 mg Amlodipine Besylate (Norvasc) 10 mg PO DAILY [facility] Aspirin (Aspirin Chewable) 81 mg PO DAILY [facility] Atorvastatin Calcium (Lipitor) 10 mg PO DIN [facility] Last Admin: 07/15/17 17:09 Dose: 10 mg Calcium Acetate (Phoslo) 667 mg PO WM [facility] Last Admin: 07/16/17 08:22 Dose: 667 mg Chlordiazepoxide (Librium) 25 mg PO Q8 [facility] PRN Reason: Protocol Last Admin: 07/16/17 08:22 Dose: 25 mg Clonidine HCl (Catapres) 0.2 mg PO Q8H [facility] Folic Acid (Folic Acid) 1 mg IVP DAILY [facility] Last Admin: 07/15/17 17:14 Dose: 1 mg Furosemide (Lasix) 100 mg IVP Q12 [facility] Last Admin: 07/15/17 21:30 Dose: 100 mg Furosemide (Lasix) 20 mg IVP Q12 [facility] Last Admin: 07/15/17 21:30 Dose: 20 mg Heparin Sodium (Porcine) (Heparin) 5,000 units SC Q8 [facility] PRN Reason: Protocol Last Admin: 07/16/17 05:17 Dose: 5,000 units Hydralazine HCl (Apresoline) 10 mg IVP Q6 PRN PRN Reason: SBP > 150 Last Admin: 07/16/17 05:16 Dose: 10 mg Hydralazine HCl (Apresoline) 25 mg PO Q6H [facility] Last Admin: 07/16/17 08:23 Dose: 25 mg Nitroglycerin/Dextrose (Nitroglycerin 50 Mg/250 Ml D5w) 50 mg in 250 mls @ 3 mls/hr IV .Q24H PRN; Protocol; 10 MCG/MIN PRN Reason: Titrate per protocol Last Titration: 07/16/17 00:00 Dose: 30 mcg/min, 9 mls/hr Ceftriaxone Sodium (Rocephin 1 Gram Ivpb) 1 gm in 100 mls @ 100 mls/hr IVPB DAILY [facility] PRN Reason: Protocol Last Admin: 07/15/17 16:36 Dose: 100 mls/hr Ondansetron HCl (Zofran Inj) 4 mg IVP Q6H PRN PRN Reason: Nausea/Vomiting Pantoprazole Sodium (Protonix Ec Tab) 40 mg PO 1800 [facility] Last Admin: 07/15/17 17:10 Dose: 40 mg Thiamine HCl (Vitamin B1 Inj) 100 mg IV DAILY [facility] Last Admin: 07/15/17 16:32 Dose: 100 mg - Labs Labs: 07/16/17 05:00 07/16/17 05:00 PT 12.4 SECONDS (9.4-12.5) 07/16/17 05:00 INR 1.08 (0.93-1.08) 07/16/17 05:00 APTT 32.0 Seconds (25.1-36.5) 07/16/17 05:00 - Additional Findings Additional findings: - Constitutional Appears: Non-toxic, Chronically Ill, Poor state of health and poor hygeine, No acute distress - Head Exam Head Exam: ATRAUMATIC, NORMOCEPHALIC - Eye Exam Eye Exam: EOMI, PERRL, bilateral borderline exophthalmos, dirty sclera with patchy discoloration spots but not grossly icteric. absent: Conjunctival injection, Normal appearance, Scleral icterus Pupil Exam: NORMAL ACCOMODATION, PERRL. absent: Fixed, Irregular, Unequal - ENT Exam ENT Exam: Mucous Membranes Moist - Neck Exam Neck exam: Positive for: Full Rom, JVD up past midpoint of neck, worse with hepatic pressure application (+hepatojugular reflex). Negative for: Lymphadenopathy, Normal Inspection, Tenderness, Thyromegaly, No stridor ausculated, No radiation of murmurs into Right carotid - Respiratory Exam No longer taking rapid shallow breaths, breath pattern appears normal Satting well on bedside monitor decreased crackles in all lung coley, still most prominent at bilateral bases Mildly decreased breath sounds in all coley No wallace cyanosis noted at fingertips or lips - Cardiovascular Exam Cardiovascular Exam: REGULAR RHYTHM, JVD (as described in Neck exam), RRR, +S1, +S2 (prominent S2). absent: Bradycardia, Tachycardia, Clicks, Irregular Rhythm , +S4, Murmurs - GI/Abdominal Exam GI & Abdominal Exam: Normal Bowel Sounds, Soft, no shifting dullness or palpable fluid wave. absent: Distended, Firm, Guarding, Hernia, Organomegaly, Rigid, Tenderness - Exam No scrotal edema - Extremities Exam Extremities exam: waxy and hairless bilateral lower extremities faintly palpable dorsalis pedis pulses bilaterally no bilateral pitting edema or tenderness sensation to touch in bilateral LE intact small abrasion along left anterior knee in moderate state of healing - Neurological Exam Neurological exam: Alert, Oriented x3 - Psychiatric Exam Psychiatric exam: Anxious, Normal Affect - Skin Skin Exam: Dry, Intact, Normal Color, Warm Assessment and Plan - Assessment and Plan (Free Text) Assessment: This is a 52 yo M with PMH HTN, CKD, substance abuse (cocaine), alcohol abuse, and chronic non-compliance who presents to [facility] [place] with complaint of progressively worsening shortness of breath x3 days. His initial imaging is highly concerning for cardiomegaly and fluid overload, and his renal function on labs is highly concerning for possible acute renal failure overlying CKD. He was admitted to the ICU due to needing a Tridil drip for BP control in the setting of hypertensive urgency/emergency. Plan: 1) Progressive shortness of breath - improved -acute congestive heart failure vs exacerbation of previously undiagnosed heart failure vs fluid overload 2/2 renal failure vs alcohol-induced cardiomyopathy -CXR in ED notable for cardiomegaly and pulmonary edema bilaterally, BNP > 88383 in ED -high risk for ACS in setting of active cocaine abuse and active use of beta- blockers, risk for NV -smoking history, still actively using tobacco, so possible there is COPD component as well, but not acutely wheezing, and fluid overload more obvious etiology at this time -Given reported substance abuse, reported IVDA, and presentation, concern for possible infective endocarditis; less likely due to lack of fevers, but will need Echo to rule out, pending -trops 0.10, 0.11, 0.10, remains in indeterminate stage, but may just be trop leak 2/2 renal disease, less likely ACS -Cardio consulted, appreciate all recs -continue daily ASA, statin; AVOID beta-blockers in this patient, due to repeated and recent cocaine abuse -Urine drug screen notable for cocaine, serum alcohol level negative 2) Hypertensive urgency - improved -BP 200's/120's-150's in the ED, briefly under control when restarted on home meds, but then elevated again, now on Tridil drip titrated up to 30 mcg/min -signs of end-organ damage on labs, but likely chronic damage in case of kidneys , and patient denies overt neurological sx (dizziness, syncope, near-syncope), so more likely hypertensive urgency than emergency -likely non-compliant with home Clonidine and Amlodipine, restarting home amlodipine 10mg daily ([facility]) -remains elevated despite current med regimen, tridil drip was uptitrated to 30 mcg/min; increasing Clonidine to 0.2mg TID and will attempt to titrate down the drip -ACEi contraindicated in this patient due to angioedema vs anaphylaxis rxn to lisinopril, so cannot use enalaprilat -Nephro consulted, appreciate all recs -Hydralazine IVP q6 PRN for SBP > 150 ordered 3) Acute renal failure on CKD -Nephro following, appreciate all recs; pt high-risk for needing dialysis, will go for tunnel cath Monday -urine output > 3L since admission, continue IVP Lasix 120mg q12 -UA concerning for possible cystitis, need to also consider pyelonephritis in setting of acute renal failure; continue rocephin 1g daily IVPB -urine and blood cultures ordered, follow up -Complete abdominal US ordered, f/u -Urine electrolytes, urea, and creatinine ordered, urine and serum osms ordered , f/u -Strict I's & O's, daily weights -Phosphorous elevated at 5.4, starting Phoslo 667mg with meals 4) Hx Alcohol and substance abuse -CIWA protocol ordered, librium started as per ICU at 25mg q8, but given somnolence and negative alcohol level, weaning down to 10mg q8 -Serum alcohol negative, Urine drug screen only positive for cocaine -avoid hepato and nephro-toxic agents -Hepatitis panel ordered, HIV with reflex ordered, RPR ordered, GC/Chalmydia ordered, f/u -continue to monitor LFTs and coags daily; both stable and wnl today -Thiamine and Folic acid supplements IV daily Dispo: ICU, on Tridil drip, pending possible tunnel cath on Monday for dialysis , attempting to wean off Tridil drip FEN: Renal diet, NPO after midnight for procedure Monday Access: Peripheral IV, pending tunnel cath on Monday Consults: Nephro, Cardio, ICU Ppx: Protonix for GI, Heparin SC for DVT Patient seen, reviewed, and discussed with attending, Dr. Bonner <Hermila Bonner - Last Filed: 07/16/17 14:11> Objective - Vital Signs/Intake and Output Vital Signs (last 24 hours): Temp Pulse Resp BP Pulse Ox 98.9 F 66 44 H 135/78 97 07/16/17 08:00 07/16/17 10:03 07/16/17 09:30 07/16/17 10:05 07/16/17 09:30 Intake and Output: 07/16/17 07/16/17 06:59 18:59 Intake Total Output Total Balance - Medications Medications: Current Medications Acetaminophen (Tylenol 325mg Tab) 650 mg PO Q6H PRN PRN Reason: Headache Last Admin: 07/16/17 10:52 Dose: 650 mg Amlodipine Besylate (Norvasc) 10 mg PO DAILY [facility] Last Admin: 07/16/17 10:04 Dose: 10 mg Aspirin (Aspirin Chewable) 81 mg PO DAILY [facility] Last Admin: 07/16/17 10:03 Dose: 81 mg Atorvastatin Calcium (Lipitor) 10 mg PO DIN [facility] Last Admin: 07/15/17 17:09 Dose: 10 mg Calcium Acetate (Phoslo) 667 mg PO WM [facility] Last Admin: 07/16/17 12:00 Dose: Not Given Chlordiazepoxide (Librium) 10 mg PO Q8 [facility] PRN Reason: Protocol Clonidine HCl (Catapres) 0.2 mg PO Q8H [facility] Last Admin: 07/16/17 10:03 Dose: 0.2 mg Folic Acid (Folic Acid) 1 mg IVP DAILY [facility] Last Admin: 07/16/17 10:51 Dose: 1 mg Furosemide (Lasix) 100 mg IVP Q12 [facility] Last Admin: 07/16/17 10:05 Dose: 100 mg Furosemide (Lasix) 20 mg IVP Q12 [facility] Last Admin: 07/16/17 10:05 Dose: 20 mg Heparin Sodium (Porcine) (Heparin) 5,000 units SC Q8 [facility] PRN Reason: Protocol Last Admin: 07/16/17 05:17 Dose: 5,000 units Hydralazine HCl (Apresoline) 10 mg IVP Q6 PRN PRN Reason: SBP > 150 Last Admin: 07/16/17 05:16 Dose: 10 mg Hydralazine HCl (Apresoline) 25 mg PO Q6H [facility] Last Admin: 07/16/17 08:23 Dose: 25 mg Nitroglycerin/Dextrose (Nitroglycerin 50 Mg/250 Ml D5w) 50 mg in 250 mls @ 3 mls/hr IV .Q24H PRN; Protocol; 10 MCG/MIN PRN Reason: Titrate per protocol Last Titration: 07/16/17 00:00 Dose: 30 mcg/min, 9 mls/hr Ceftriaxone Sodium (Rocephin 1 Gram Ivpb) 1 gm in 100 mls @ 100 mls/hr IVPB DAILY [facility] PRN Reason: Protocol Last Admin: 07/16/17 10:06 Dose: 100 mls/hr Ondansetron HCl (Zofran Inj) 4 mg IVP Q6H PRN PRN Reason: Nausea/Vomiting Pantoprazole Sodium (Protonix Ec Tab) 40 mg PO 1800 [facility] Last Admin: 07/15/17 17:10 Dose: 40 mg Thiamine HCl (Vitamin B1 Inj) 100 mg IV DAILY [facility] Last Admin: 07/16/17 10:04 Dose: 100 mg - Labs Labs: 07/16/17 05:00 07/16/17 05:00 PT 12.4 SECONDS (9.4-12.5) 07/16/17 05:00 INR 1.08 (0.93-1.08) 07/16/17 05:00 APTT 32.0 Seconds (25.1-36.5) 07/16/17 05:00 Attending/Attestation - Attestation I have personally seen and examined this patient.: Yes I have fully participated in the care of the patient.: Yes I have reviewed all pertinent clinical information, including history, physical exam and plan: Yes Notes (Text): I have seen and examined the patient at bedside. Agree with the above note with the following additions/ exceptions: Briefly this is 52 year old male with history of HTN, CKD, substance abuse (cocaine), alcohol abuse and chronic non compliance with medications who came for evaluation of worsening of shortness of breath. Upon admission, he was found to have renal failure, hypertensive emergency, CHF exacerbation, mild metabolic acidosis and proteinuria. He is on IV lasix, nitro drip, clonidine, norvasc and hydralazine. Patient is allergic to ACEI. Nitro drip will be weaned off. Work up for proteinuria pending. Patient will be kept npo past midnight for tunnelled HD catheter tomorrow. Urine culture pending. Wean librium as patient is somnolent. UDS positive for cocaine. Counselling provided. UA reveals pyuria. Urine culture pending. Continue rocephin. Upon discharge patient will follow up with Dr Stafford. Dr Hermila Bonner
[2017-07-16] MEDS: cefTRIAXone 1 gm 1 GM/100 ML BAG IVPB SCH (10:06)
[2017-07-16 11:18] LABS: OSMOLALITY,SERUM 317 mosm/kg (272-300)
[2017-07-16 11:45] LABS: COMPLEMENT C4 64.8 mg/dL (14.0-44.0)
[2017-07-16 11:51] LABS: HEPATITIS B SURFACE AG Negative (NEGATIVE)
[2017-07-16 11:56] LABS: HEPATITIS A IGM NEGATIVE (NEGATIVE); HEPATITIS B CORE AB NEGATIVE (NEGATIVE)
[2017-07-16 12:08] LABS: HEPATITIS C ANTIBODY NEGATIVE (NEGATIVE)
--- NOTE | 2017-07-16 12:23 | RAD ---
HISTORY: chf COMPARISON: July 15, 2017. FINDINGS: LUNGS: Improving pulmonary edema. PLEURA: No significant pleural effusion identified, no pneumothorax apparent. CARDIOVASCULAR: No significant interval change compared to the prior examination(s). OSSEOUS STRUCTURES: No significant abnormalities. VISUALIZED UPPER ABDOMEN: Normal. OTHER FINDINGS: None. IMPRESSION: Interval improvement in asymmetric alveolar infiltrates likely improving pulmonary edema.
--- NOTE | 2017-07-16 12:26 | PN ---
DATE: 07/16/2017 SALES FORCE DEVELOPER NOTE SUBJECTIVE: The patient is resting in bed, O2 via nasal cannula. No complaints of chest pain or abdominal pain. No significant cough or congestion. No diarrhea. No fever, chills, nausea or vomiting. The patient continues to be on Tridil drip and is on IV medications for his blood pressure. Does have some urine output at this time. PHYSICAL EXAMINATION VITAL SIGNS: Note that his temperature is 97.8, his pulse is 72, respirations of 20 and BP is 150/88, O2 saturation is 98%. SKIN: Warm and dry. HEENT: Head is atraumatic, normocephalic. Eyes reactive to light. Ears, nose and throat seem to be within normal limits. NECK: Supple. No JVD. No thyroid enlargement, no lymph nodes. HEART: Has regular rate and rhythm. Normal S1, S2. LUNGS: Reveal good breath sounds bilaterally. ABDOMEN: Soft. Decreased bowel sounds. GENITALIA AND RECTAL: Deferred. MUSCULOSKELETAL: No joint deformities. EXTREMITIES: Reveal trace lower extremity edema. NEUROLOGIC: He seemed to be grossly intact. LABORATORY DATA: As far as his laboratories are concerned, his white count is 7.2, hemoglobin is 11.5, hematocrit 33.9 with platelets of 293,000. Sodium is 142, potassium 4, chloride 108, CO2 of 22 with a BUN of 53, creatinine of 7.4 and a glucose of 96. IMPRESSION: This patient has presented with pulmonary edema and significant hypertension. He has acute on chronic renal failure and possible cardiac ischemia. PLAN: We will continue with the Tridil drip and try to taper off as tolerated. The patient is getting hydralazine for his blood pressure, we will also increase the Catapres. He continues to get chewable aspirin and heparin subcu and we will continue with his Lipitor and Protonix as well as the Rocephin and Zofran. The patient will be started on Librium for any agitation, it is noted that he is a drug abuser with cocaine as well as alcohol. Nader Wayne MD
--- NOTE | 2017-07-16 12:47 | US ---
HISTORY: acute renal failure COMPARISON: None. TECHNIQUE: Sonographic evaluation of the abdomen. FINDINGS: LIVER: Measures 12.4 cm. Patent portal vein. Portal venous flow: Hepatopetal. Unremarkeable echogenicity of the liver parenchyma. No mass. No intrahepatic bile duct dilatation. GALLBLADDER: 2.7 mm echogenic focus either small non shadowing gallstone or small polyp. No evidence of gallbladder wall thickening, pericholecystic fluid, sludge or sonographic Cunningham's sign. COMMON BILE DUCT: Measures 4.0 mm. No stones. No dilatation. PANCREAS: Obscured by overlying bowel gas. Non diagnostic assessment of the pancreas RIGHT KIDNEY: Measures 5.1 x 8.4cm. Findings consistent medical renal disease without focal abnormality LEFT KIDNEY: Measures 5.9 x 8.1c 0.9 x 1 cm. M. Findings consistent medical renal disease. Incidental finding(s): Upper pole cyst SPLEEN: Normal in size and contour. No mass. AORTA: No aneurysmal dilatation. IVC: Unremarkable. OTHER FINDINGS: None. IMPRESSION: No acute findings related to/accounting for the clinical presentation. Additional benign and/or incidental findings described above. Additional benign and/or incidental findings described above.
--- NOTE | 2017-07-16 15:36 | PN ---
DATE: 07/16/2017 LOCATION: The patient is in CCU 129, bed 1. REASON FOR CONSULTATION AND FOLLOWUP: CHF, hypertension, renal failure, ethanol abuse, cocaine abuse, poor compliance of medication. SUBJECTIVE: The patient is lying comfortably in bed without any chest pain, shortness of breath or palpitation. PHYSICAL EXAMINATION VITAL SIGNS: Blood pressure 156/90, this morning pressure was 141/73, respirations 24, pulse 64. The patient afebrile. HEENT: Head is normocephalic. Eyes: Pupils normal. Conjunctivae slightly pale. NECK: JVP low. Carotids equal. THORAX: AP diameter normal. LUNGS: Few basilar rales. CARDIOVASCULAR: S1, S2. ABDOMEN: Soft, nontender. No organomegaly. Bowel sounds normal. EXTREMITIES: No clubbing, no cyanosis. LABORATORY DATA: WBC 7.2, hemoglobin 11.5, hematocrit 33.9, platelets 293.000. Sodium 140, potassium 4, BUN 53, creatinine 7.4, calcium 10.1, phosphorus 5.4, magnesium 1.7, NT-proB natriuretic peptide 35,000. Troponin 0.11, 0.10. TSH 2.08. DIAGNOSES: Congestive heart failure, volume overload, renal failure, uncontrolled hypertension, poor compliance with medication, ethanol abuse, tobacco abuse, cocaine abuse, hyperlipidemia. The patient still takes cocaine 2 to 3 times a week and drink heavy and also, continues to smoke. The patient is on hydralazine 25 mg p.o. q. 6 hours, aspirin 81 mg daily, clonidine 0.2 mg q. 8 hours, folic acid 1 mg IV daily, heparin 5000 units subcutaneously q. 8 hours, furosemide 100 mg IV q. 12 hour, chlordiazepoxide 25 mg q. 8 hours, Lipitor 10 mg daily, nitroglycerin drip IV to help the blood pressure, amlodipine 10 mg daily, Protonix 40 mg daily, Rocephin 1 g IV daily, thiamine 100 mg IV daily. We will follow repeat chest x-ray today. The patient being seen by Dr. Gaytan, Renal and we will follow with you. Echo had been also Bal Williamson MD [facility] # [id number]
--- NOTE | 2017-07-16 16:49 | CP.PCM.PN ---
Subjective - Date & Time of Evaluation Date of Evaluation: 07/16/17 Time of Evaluation: 11:30 - Subjective Subjective: Patient reports breathing improved; not eating due to nausea; Objective - Vital Signs/Intake and Output Vital Signs (last 24 hours): Temp Pulse Resp BP Pulse Ox 98.9 F 68 29 H 144/93 H 97 07/16/17 08:00 07/16/17 14:06 07/16/17 13:10 07/16/17 14:06 07/16/17 13:10 Intake and Output: 07/16/17 07/16/17 06:59 18:59 Intake Total Output Total Balance - Medications Medications: Current Medications Acetaminophen (Tylenol 325mg Tab) 650 mg PO Q6H PRN PRN Reason: Headache Last Admin: 07/16/17 10:52 Dose: 650 mg Amlodipine Besylate (Norvasc) 10 mg PO DAILY [facility] Last Admin: 07/16/17 10:04 Dose: 10 mg Aspirin (Aspirin Chewable) 81 mg PO DAILY [facility] Last Admin: 07/16/17 10:03 Dose: 81 mg Atorvastatin Calcium (Lipitor) 10 mg PO DIN [facility] Last Admin: 07/15/17 17:09 Dose: 10 mg Calcium Acetate (Phoslo) 667 mg PO WM [facility] Last Admin: 07/16/17 14:01 Dose: 667 mg Chlordiazepoxide (Librium) 10 mg PO Q8 [facility] PRN Reason: Protocol Last Admin: 07/16/17 14:02 Dose: 10 mg Clonidine HCl (Catapres) 0.2 mg PO Q8H [facility] Last Admin: 07/16/17 10:03 Dose: 0.2 mg Folic Acid (Folic Acid) 1 mg IVP DAILY [facility] Last Admin: 07/16/17 10:51 Dose: 1 mg Furosemide (Lasix) 100 mg IVP Q12 [facility] Last Admin: 07/16/17 10:05 Dose: 100 mg Furosemide (Lasix) 20 mg IVP Q12 [facility] Last Admin: 07/16/17 10:05 Dose: 20 mg Heparin Sodium (Porcine) (Heparin) 5,000 units SC Q8 [facility] PRN Reason: Protocol Last Admin: 07/16/17 14:01 Dose: 5,000 units Hydralazine HCl (Apresoline) 10 mg IVP Q6 PRN PRN Reason: SBP > 150 Last Admin: 07/16/17 05:16 Dose: 10 mg Hydralazine HCl (Apresoline) 50 mg PO Q6H [facility] Last Admin: 07/16/17 14:06 Dose: 50 mg Nitroglycerin/Dextrose (Nitroglycerin 50 Mg/250 Ml D5w) 50 mg in 250 mls @ 3 mls/hr IV .Q24H PRN; Protocol; 10 MCG/MIN PRN Reason: Titrate per protocol Last Titration: 07/16/17 00:00 Dose: 30 mcg/min, 9 mls/hr Ceftriaxone Sodium (Rocephin 1 Gram Ivpb) 1 gm in 100 mls @ 100 mls/hr IVPB DAILY [facility] PRN Reason: Protocol Last Admin: 07/16/17 10:06 Dose: 100 mls/hr Ondansetron HCl (Zofran Inj) 4 mg IVP Q6H PRN PRN Reason: Nausea/Vomiting Pantoprazole Sodium (Protonix Ec Tab) 40 mg PO 1800 [facility] Last Admin: 07/15/17 17:10 Dose: 40 mg Thiamine HCl (Vitamin B1 Inj) 100 mg IV DAILY [facility] Last Admin: 07/16/17 10:04 Dose: 100 mg - Labs Labs: 07/16/17 05:00 07/16/17 05:00 PT 12.4 SECONDS (9.4-12.5) 07/16/17 05:00 INR 1.08 (0.93-1.08) 07/16/17 05:00 APTT 32.0 Seconds (25.1-36.5) 07/16/17 05:00 - Constitutional Appears: Non-toxic, No Acute Distress - Respiratory Exam Respiratory Exam: absent: Respiratory Distress Additional comments: mild rales present - Cardiovascular Exam Cardiovascular Exam: RRR, +S1, +S2. absent: Gallop, Rubs - GI/Abdominal Exam GI & Abdominal Exam: Soft. absent: Distended, Tenderness - Exam Exam: absent: Bladder Distension - Extremities Exam Additional comments: no leg edema; - Neurological Exam Neurological Exam: Alert, Awake - Psychiatric Exam Psychiatric exam: Normal Mood. absent: Agitated - Skin Skin Exam: Warm. absent: Cyanosis Assessment and Plan (1) Renal failure Assessment & Plan: CKD V; non-oliguric; presented with volume overload but responding well to high dose bolus diuretics; eGFR ~8 ml/min; has some uremic symptoms (nausea); advised on need to initiate HD as ESRD; patient is agreeable; will have IR placed tunneled HD cath tomorrow; -NPO past midnight -upper ext vein mapping and consult vascular surgery tomorrow (for AVF placement ); -planning for 1st HD tomorrow, and then for 2 straight days with progressive increase in dialysis clearance; Status: Chronic (2) Hypertensive emergency Assessment & Plan: BP much improved; PO clonidine and hydralazine doses increased; should taper off nitro drip; SBP in 160's-170's with DBP < 100 is acceptable for now, will improve with initiation of HD and volume removal; Status: Acute (3) CHF (congestive heart failure) Assessment & Plan: Acute severely decompensated CHF, still awaiting echo; on lasix 120 mg IVP q12h , continue same for now; Status: Acute (4) Metabolic acidosis Assessment & Plan: Improved with loop diuretics; no need for bicarb replacement; Status: Acute (5) Proteinuria Assessment & Plan: Workup underway for etiology of CKD; will follow; Status: Acute (6) Pyuria Status: Acute
[2017-07-16] MEDS: Pantoprazole 40 mg EC Tab PO SCH (17:11)
[2017-07-17 02:10] LABS: CREATININE,RANDOM URINE 28 mg/dL; TOTAL PROTEIN,RANDOM URINE 34 mg/L
[2017-07-17 06:15] LABS: BASO # 0.03 K/mm3 (0.0-2.0); BASO % 0.5 % (0.0-3.0); EOS # 0.4 (0.0-0.7); EOS % 6.9 % (1.5-5.0); GRAN # 3.52 (1.4-6.5); HEMOGLOBIN 12.2 g/dL (14.0-18.0); LYMPH # 1.5 (1.2-3.4); LYMPH % 24.4 % (22.0-35.0); MEAN CORPUSCULAR HEMOGLOBIN 31.2 pg (25.0-35.0); MEAN CORPUSCULAR HGB CONC 34.3 g/dl (31.0-37.0); MEAN PLATELET VOLUME 10.6 fl (7.0-11.0); MONO # 0.6 (0.1-0.6); MONO % 10.2 % (1.0-6.0); RBC 3.91 10^6/uL (3.5-6.1); RED CELL DISTRIBUTION WIDTH 14.9 % (11.5-14.5); WHITE BLOOD COUNT 6.1 10^3/ul (4.5-11.0)
[2017-07-17 06:34] LABS: IRON 21 ug/dL (45-180)
[2017-07-17 06:36] LABS: ALBUMIN 3.7 g/dL (3.0-4.8); CALCIUM 10.3 mg/dL (8.4-10.5)
[2017-07-17 06:37] LABS: INR 1.06 (0.93-1.08); PARTIAL THROMBOPLASTIN TIME 35.1 Seconds (25.1-36.5); PROTHROMBIN TIME 12.2 SECONDS (9.4-12.5)
[2017-07-17 06:51] LABS: % IRON SATURATION 8 % (20-55); TOTAL IRON BINDING CAPACITY 283 ug/dL (261-462)
--- NOTE | 2017-07-17 07:54 | CP.PCM.PN ---
Subjective - Date & Time of Evaluation Date of Evaluation: 07/17/17 Time of Evaluation: 07:25 - Subjective Subjective: Juan Carlos Gonzalez PGY-1, Hospitalist Service Patient seen and examined at bedside. Patient denies any chest pain, dyspnea, or headache. Patient reports ability to urinate on his own. Nurse reports no events overnight. Objective - Vital Signs/Intake and Output Vital Signs (last 24 hours): Temp Pulse Resp BP Pulse Ox 97.3 F L 62 26 H 140/93 H 96 07/17/17 04:00 07/17/17 06:00 07/17/17 06:00 07/17/17 06:00 07/17/17 04:00 Intake and Output: 07/17/17 07/17/17 06:59 18:59 Intake Total 800 Output Total 1300 Balance -500 - Medications Medications: Current Medications Acetaminophen (Tylenol 325mg Tab) 650 mg PO Q6H PRN PRN Reason: Headache Last Admin: 07/16/17 10:52 Dose: 650 mg Amlodipine Besylate (Norvasc) 10 mg PO DAILY [facility] Last Admin: 07/16/17 10:04 Dose: 10 mg Aspirin (Aspirin Chewable) 81 mg PO DAILY [facility] Last Admin: 07/16/17 10:03 Dose: 81 mg Atorvastatin Calcium (Lipitor) 10 mg PO DIN [facility] Last Admin: 07/16/17 17:10 Dose: 10 mg Calcium Acetate (Phoslo) 667 mg PO WM [facility] Last Admin: 07/16/17 17:11 Dose: 667 mg Chlordiazepoxide (Librium) 10 mg PO Q8 [facility] PRN Reason: Protocol Last Admin: 07/17/17 05:56 Dose: 10 mg Clonidine HCl (Catapres) 0.2 mg PO Q8H [facility] Last Admin: 07/17/17 00:59 Dose: 0.2 mg Folic Acid (Folic Acid) 1 mg IVP DAILY [facility] Last Admin: 07/16/17 10:51 Dose: 1 mg Furosemide (Lasix) 100 mg IVP Q12 [facility] Last Admin: 07/16/17 22:15 Dose: 100 mg Furosemide (Lasix) 20 mg IVP Q12 [facility] Last Admin: 07/16/17 22:16 Dose: 20 mg Heparin Sodium (Porcine) (Heparin) 5,000 units SC Q8 [facility] PRN Reason: Protocol Last Admin: 07/17/17 05:55 Dose: 5,000 units Hydralazine HCl (Apresoline) 10 mg IVP Q6 PRN PRN Reason: SBP > 150 Last Admin: 07/16/17 22:14 Dose: 10 mg Hydralazine HCl (Apresoline) 50 mg PO Q6H [facility] Last Admin: 07/17/17 01:32 Dose: 50 mg Nitroglycerin/Dextrose (Nitroglycerin 50 Mg/250 Ml D5w) 50 mg in 250 mls @ 3 mls/hr IV .Q24H PRN; Protocol; 10 MCG/MIN PRN Reason: Titrate per protocol Last Titration: 07/16/17 17:00 Dose: 0 mcg/min, 0 mls/hr Ceftriaxone Sodium (Rocephin 1 Gram Ivpb) 1 gm in 100 mls @ 100 mls/hr IVPB DAILY [facility] PRN Reason: Protocol Last Admin: 07/16/17 10:06 Dose: 100 mls/hr Ondansetron HCl (Zofran Inj) 4 mg IVP Q6H PRN PRN Reason: Nausea/Vomiting Pantoprazole Sodium (Protonix Ec Tab) 40 mg PO 1800 [facility] Last Admin: 07/16/17 17:11 Dose: 40 mg Thiamine HCl (Vitamin B1 Inj) 100 mg IV DAILY [facility] Last Admin: 07/16/17 10:04 Dose: 100 mg - Labs Labs: 07/17/17 05:16 07/17/17 05:16 PT 12.2 SECONDS (9.4-12.5) 07/17/17 05:16 INR 1.06 (0.93-1.08) 07/17/17 05:16 APTT 35.1 Seconds (25.1-36.5) 07/17/17 05:16 - Constitutional Appears: Non-toxic, No Acute Distress - Head Exam Head Exam: ATRAUMATIC, NORMOCEPHALIC - Eye Exam Eye Exam: Conjunctival injection - ENT Exam ENT Exam: Mucous Membranes Dry Additional comments: lips chapped - Neck Exam Neck Exam: Normal Inspection - Respiratory Exam Respiratory Exam: Clear to Ausculation Bilateral, NORMAL BREATHING PATTERN - Cardiovascular Exam Cardiovascular Exam: +S1, +S2. absent: Tachycardia - GI/Abdominal Exam GI & Abdominal Exam: Soft, Normal Bowel Sounds - Extremities Exam Extremities Exam: Normal Inspection. absent: Pedal Edema - Back Exam Back Exam: NORMAL INSPECTION. absent: CVA tenderness (L), CVA tenderness (R) - Neurological Exam Neurological Exam: Alert, Awake, Oriented x3 - Psychiatric Exam Psychiatric exam: Normal Affect, Normal Mood - Skin Skin Exam: Dry, Intact, Normal Color, Warm Assessment and Plan - Assessment and Plan (Free Text) Assessment: 52 year old male with a past medical history of hypertension, chronic kidney disease, cocaine and alcohol abuse who presented to [facility] for 3 days of worsening dyspnea. Upon admission, he was found to have renal failure, hypertensive emergency, CHF exacerbation, a mild metabolic acidosis and proteinuria in the setting of concurrent B-andrew and cocaine use. He is on IV Furosemide, clonidine, amlodipine and hydralazine. Patient is scheduled today to get tunnel catheter placement for temporary HD. Vascular surgery also consulted for in patient AV fistula for HD. Plan: 1) Renal failure/UTI - Furosemide 120 mg IVP; will taper accordingly. - Patient scheduled for tunneled catheter placement by IR with first - upper extremity vein mapping - vascular surgery consulted 2) Hypertensive emergency: following dialysis patient will likely not need to be on such a heavy anti-hypertensive regiment; will modify regiment accordingly. - Nitroglycerin drip discontinued - Clonidine 0.2 mg q8h - Amlodipine 10 mg PO daily - Hydralazine 50 mg q6h 3) Acute renal failure on CKD - starting Phoslo 667mg with meals - Nephro is following, appreciate recommendations 4) Alcohol and substance abuse - [facility] protocol - Librium 5 mg q12h, and then to discontinue. -Thiamine and Folic acid supplements IV daily 5)DVT/GI prophylaxis/FEN 1) Protonix 2) Heparin SC for DVT 3) HHD/ Renal 6) Pneumonia - ICU team suspicious of pneumonia and started IV zithromax. Patient seen, reviewed, and discussed with attending, Dr. Hassan.
[2017-07-17] MEDS: cefTRIAXone 1 gm 1 GM/100 ML BAG IVPB SCH (09:21)
[2017-07-17] MEDS: Thiamine 100 mg/ml Inj IV SCH (09:22)
--- NOTE | 2017-07-17 09:52 | CP.CCUPN ---
<Max Aparicio - Last Filed: 07/17/17 10:03> CCU Subjective - Physician Review Subjective (Free Text): Patient seen and examined at bedside. Patient states he does not feel well, but better than when he first came in. No acute events overnight. Denies chest pain , shortness of breath, nausea, vomiting, diarrhea. CCU Objective - Vital Signs / Intake & Output Vital Signs (Last 4 hours): Vital Signs Temp Pulse Resp BP Pulse Ox 07/17/17 09:22 126/66 07/17/17 09:21 126/66 07/17/17 09:11 126/66 07/17/17 08:04 63 136/95 H 07/17/17 08:00 98.4 F 60 17 136/95 H 96 07/17/17 06:00 62 26 H 140/93 H Intake and Output (Last 8hrs): Intake & Output 07/16/17 07/17/17 07/17/17 22:59 06:59 14:59 Intake Total 1228 800 Output Total 1500 1300 Balance -272 -500 Intake: IV 278 Left Antecubital 200 Left Hand 69 Oral 950 800 Output: Urine 1500 1300 Urine, Voided 1500 1300 Stool 0 - Physical Exam Head: Positive for: Atraumatic Pupils: Positive for: PERRL Mouth: Positive for: Moist Mucous Membranes Pharnyx: Negative for: ERYTHEMA Neck: Positive for: JVD. Negative for: Meningeal Signs Respiratory/Chest: Positive for: Good Air Exchange, Decreased Breath Sounds. Negative for: Rales Cardiovascular: Positive for: Regular Rate and Rhythm, Murmurs Abdomen: Negative for: Tenderness, Distention Back: Negative for: CVA Tenderness Upper Extremity: Negative for: Cyanosis Lower Extremity: Negative for: Edema, CALF TENDERNESS Neurological: Positive for: Motor Func Grossly Intact, Normal Sensory Function Skin: Positive for: Warm, Dry, Normal Color Psychiatric: Positive for: Alert, Oriented x 3 - Medications Active Medications: Active Medications Generic Name Dose Route Start Last Admin Trade Name Freq PRN Reason Stop Dose Admin Acetaminophen 650 mg 07/15/17 21:05 07/16/17 10:52 Tylenol 325mg Tab PO 650 mg Q6H PRN Administration Headache Amlodipine Besylate 10 mg 07/16/17 10:00 07/16/17 10:04 Norvasc PO 10 mg DAILY DEREK Administration Aspirin 81 mg 03/11/18 10:00 07/17/17 09:21 Aspirin Chewable PO 81 mg DAILY DEREK Administration Atorvastatin Calcium 10 mg 07/15/17 17:00 07/16/17 17:10 Lipitor PO 10 mg DIN DEREK Administration Calcium Acetate 667 mg 07/16/17 08:00 07/17/17 08:04 Phoslo PO 667 mg WM DEREK Administration Chlordiazepoxide 5 mg 07/17/17 10:00 Librium PO 12 [facility] Protocol Clonidine HCl 0.2 mg 07/16/17 08:51 07/17/17 09:11 Catapres PO 0.2 mg Q8H DEREK Administration Folic Acid 1 mg 07/17/17 10:00 Folic Acid PO DAILY DEREK Furosemide 100 mg 07/15/17 22:00 07/17/17 09:21 Lasix IVP 100 mg Q12 DEREK Administration Furosemide 20 mg 07/15/17 22:00 07/17/17 09:22 Lasix IVP 20 mg Q12 DEREK Administration Heparin Sodium (Porcine) 5,000 units 07/15/17 22:00 07/17/17 05:55 Heparin SC 5,000 units Q8 DEREK Administration Protocol Hydralazine HCl 10 mg 07/15/17 14:06 07/16/17 22:14 Apresoline IVP 10 mg Q6 PRN Administration SBP > 150 Hydralazine HCl 50 mg 07/16/17 14:00 07/17/17 08:04 Apresoline PO 50 mg Q6H DEREK Administration Nitroglycerin/Dextrose 50 mg in 250 mls @ 3 mls/hr 07/15/17 12:20 07/16/17 17 :00 Nitroglycerin 50 Mg/250 Ml D5w IV 0 mcg/min .Q24H PRN 0 mls/hr Titrate per protocol Titration Protocol 10 MCG/MIN Ceftriaxone Sodium 1 gm in 100 mls @ 100 mls/hr 07/15/17 15:45 07/17/17 09:21 Rocephin 1 Gram Ivpb IVPB 100 mls/hr DAILY DEREK Administration Protocol Azithromycin 500 mg in 250 mls @ 167 mls/hr 07/17/17 10:00 Zithromax 500mg In Ns IVPB DAILY [facility] Protocol Ondansetron HCl 4 mg 07/15/17 15:43 Zofran Inj IVP Q6H PRN Nausea/Vomiting Pantoprazole Sodium 40 mg 07/15/17 18:00 07/16/17 17:11 Protonix Ec Tab PO 40 mg 1800 DEREK Administration Thiamine HCl 100 mg 07/15/17 14:45 07/17/17 09:22 Vitamin B1 Inj IV 100 mg DAILY DEREK Administration - Patient Studies Lab Studies: Microbiology Studies 07/15/17 15:40 MRSA Culture (Admit) - Final Naris MRSA NOT DETECTED 07/15/17 14:14 Urine Culture - Final Urine No Growth (<1,000 CFU/ML) Lab Studies 07/17/17 07/17/17 07/17/17 Range/Units 05:16 05:16 05:16 WBC (4.5-11.0) 10^3/ul RBC (3.5-6.1) 10^6/uL Hgb (14.0-18.0) g/dL Hct (42.0-52.0) % MCV (80.0-105.0) fl MCH (25.0-35.0) pg MCHC (31.0-37.0) g/dl RDW (11.5-14.5) % Plt Count (120.0-450.0) 10^3/uL MPV (7.0-11.0) fl Gran % (50.0-68.0) % Lymph % (Auto) (22.0-35.0) % [place] % (Auto) (1.0-6.0) % Eos % (Auto) (1.5-5.0) % Baso % (Auto) (0.0-3.0) % Gran # (1.4-6.5) Lymph # (Auto) (1.2-3.4) [place] # (Auto) (0.1-0.6) Eos # (Auto) (0.0-0.7) Baso # (Auto) (0.0-2.0) K/mm3 PT 12.2 (9.4-12.5) SECONDS INR 1.06 (0.93-1.08) APTT 35.1 (25.1-36.5) Seconds Sodium 142 (132-148) mmol/L Potassium 3.8 (3.6-5.0) mmol/L Chloride 105 (98-107) mmol/L Carbon Dioxide 25 (21-33) mmol/L Anion Gap 16 (10-20) BUN 56 H (7-21) mg/dL Creatinine 7.9 H* (0.8-1.5) mg/dl Est GFR ( Amer) 9 Est GFR (Non-Af Amer) 7 Random Glucose 109 (70-110) mg/dL Serum Osmolality (272-300) mosm/kg Calcium 10.3 (8.4-10.5) mg/dL Phosphorus 5.1 H (2.5-4.5) mg/dL Magnesium 1.7 (1.7-2.2) mg/dL Iron 21 L (45-180) ug/dL TIBC 283 (261-462) ug/dL % Saturation 8 L (20-55) % Total Bilirubin 0.4 (0.2-1.3) mg/dL AST 24 (17-59) U/L ALT 24 (7-56) U/L Alkaline Phosphatase 112 (38-126) U/L Total Protein 7.5 (5.8-8.3) g/dL Albumin 3.7 (3.0-4.8) g/dL Globulin 3.8 gm/dL Albumin/Globulin Ratio 1.0 L (1.1-1.8) Ur Random Creatinine mg/dL U Random Total Protein mg/L Urine Microalbumin (0.0-16.6) mg/L Complement C3 (88.0-165.0) mg/dL Complement C4 (14.0-44.0) mg/dL RPR (NONREACTIVE) Hepatitis A IgM Ab (NEGATIVE) Hep Bs Antigen (NEGATIVE) Hep B Core IgM Ab (NEGATIVE) Hepatitis C Antibody (NEGATIVE) 07/17/17 07/17/17 07/16/17 Range/Units 05:16 01:02 05:00 WBC 6.1 (4.5-11.0) 10^3/ul RBC 3.91 (3.5-6.1) 10^6/uL Hgb 12.2 L (14.0-18.0) g/dL Hct 35.6 L (42.0-52.0) % MCV 91.0 (80.0-105.0) fl MCH 31.2 (25.0-35.0) pg MCHC 34.3 (31.0-37.0) g/dl RDW 14.9 H (11.5-14.5) % Plt Count 301 (120.0-450.0) 10^3/uL MPV 10.6 (7.0-11.0) fl Gran % 58.0 (50.0-68.0) % Lymph % (Auto) 24.4 (22.0-35.0) % [place] % (Auto) 10.2 H (1.0-6.0) % Eos % (Auto) 6.9 H (1.5-5.0) % Baso % (Auto) 0.5 (0.0-3.0) % Gran # 3.52 (1.4-6.5) Lymph # (Auto) 1.5 (1.2-3.4) [place] # (Auto) 0.6 (0.1-0.6) Eos # (Auto) 0.4 (0.0-0.7) Baso # (Auto) 0.03 (0.0-2.0) K/mm3 PT (9.4-12.5) SECONDS INR (0.93-1.08) APTT (25.1-36.5) Seconds Sodium (132-148) mmol/L Potassium (3.6-5.0) mmol/L Chloride (98-107) mmol/L Carbon Dioxide (21-33) mmol/L Anion Gap (10-20) BUN (7-21) mg/dL Creatinine (0.8-1.5) mg/dl Est GFR ( Amer) Est GFR (Non-Af Amer) Random Glucose (70-110) mg/dL Serum Osmolality (272-300) mosm/kg Calcium (8.4-10.5) mg/dL Phosphorus (2.5-4.5) mg/dL Magnesium (1.7-2.2) mg/dL Iron (45-180) ug/dL TIBC (261-462) ug/dL % Saturation (20-55) % Total Bilirubin (0.2-1.3) mg/dL AST (17-59) U/L ALT (7-56) U/L Alkaline Phosphatase (38-126) U/L Total Protein (5.8-8.3) g/dL Albumin (3.0-4.8) g/dL Globulin gm/dL Albumin/Globulin Ratio (1.1-1.8) Ur Random Creatinine 28 mg/dL U Random Total Protein 34 mg/L Urine Microalbumin 114.5 H (0.0-16.6) mg/L Complement C3 (88.0-165.0) mg/dL Complement C4 (14.0-44.0) mg/dL RPR (NONREACTIVE) Hepatitis A IgM Ab (NEGATIVE) Hep Bs Antigen (NEGATIVE) Hep B Core IgM Ab (NEGATIVE) Hepatitis C Antibody (NEGATIVE) 07/16/17 07/15/17 07/15/17 Range/Units 05:00 19:50 19:50 WBC (4.5-11.0) 10^3/ul RBC (3.5-6.1) 10^6/uL Hgb (14.0-18.0) g/dL Hct (42.0-52.0) % MCV (80.0-105.0) fl MCH (25.0-35.0) pg MCHC (31.0-37.0) g/dl RDW (11.5-14.5) % Plt Count (120.0-450.0) 10^3/uL MPV (7.0-11.0) fl Gran % (50.0-68.0) % Lymph % (Auto) (22.0-35.0) % [place] % (Auto) (1.0-6.0) % Eos % (Auto) (1.5-5.0) % Baso % (Auto) (0.0-3.0) % Gran # (1.4-6.5) Lymph # (Auto) (1.2-3.4) [place] # (Auto) (0.1-0.6) Eos # (Auto) (0.0-0.7) Baso # (Auto) (0.0-2.0) K/mm3 PT (9.4-12.5) SECONDS INR (0.93-1.08) APTT (25.1-36.5) Seconds Sodium (132-148) mmol/L Potassium (3.6-5.0) mmol/L Chloride (98-107) mmol/L Carbon Dioxide (21-33) mmol/L Anion Gap (10-20) BUN (7-21) mg/dL Creatinine (0.8-1.5) mg/dl Est GFR ( Amer) Est GFR (Non-Af Amer) Random Glucose (70-110) mg/dL Serum Osmolality (272-300) mosm/kg Calcium (8.4-10.5) mg/dL Phosphorus (2.5-4.5) mg/dL Magnesium (1.7-2.2) mg/dL Iron (45-180) ug/dL TIBC (261-462) ug/dL % Saturation (20-55) % Total Bilirubin (0.2-1.3) mg/dL AST (17-59) U/L ALT (7-56) U/L Alkaline Phosphatase (38-126) U/L Total Protein (5.8-8.3) g/dL Albumin (3.0-4.8) g/dL Globulin gm/dL Albumin/Globulin Ratio (1.1-1.8) Ur Random Creatinine mg/dL U Random Total Protein mg/L Urine Microalbumin (0.0-16.6) mg/L Complement C3 138.0 (88.0-165.0) mg/dL Complement C4 64.8 H (14.0-44.0) mg/dL RPR Nonreactive (NONREACTIVE) Hepatitis A IgM Ab Negative (NEGATIVE) Hep Bs Antigen Negative (NEGATIVE) Hep B Core IgM Ab Negative (NEGATIVE) Hepatitis C Antibody Negative (NEGATIVE) 07/15/17 Range/Units 15:30 WBC (4.5-11.0) 10^3/ul RBC (3.5-6.1) 10^6/uL Hgb (14.0-18.0) g/dL Hct (42.0-52.0) % MCV (80.0-105.0) fl MCH (25.0-35.0) pg MCHC (31.0-37.0) g/dl RDW (11.5-14.5) % Plt Count (120.0-450.0) 10^3/uL MPV (7.0-11.0) fl Gran % (50.0-68.0) % Lymph % (Auto) (22.0-35.0) % [place] % (Auto) (1.0-6.0) % Eos % (Auto) (1.5-5.0) % Baso % (Auto) (0.0-3.0) % Gran # (1.4-6.5) Lymph # (Auto) (1.2-3.4) [place] # (Auto) (0.1-0.6) Eos # (Auto) (0.0-0.7) Baso # (Auto) (0.0-2.0) K/mm3 PT (9.4-12.5) SECONDS INR (0.93-1.08) APTT (25.1-36.5) Seconds Sodium (132-148) mmol/L Potassium (3.6-5.0) mmol/L Chloride (98-107) mmol/L Carbon Dioxide (21-33) mmol/L Anion Gap (10-20) BUN (7-21) mg/dL Creatinine (0.8-1.5) mg/dl Est GFR ( Amer) Est GFR (Non-Af Amer) Random Glucose (70-110) mg/dL Serum Osmolality 317 H (272-300) mosm/kg Calcium (8.4-10.5) mg/dL Phosphorus (2.5-4.5) mg/dL Magnesium (1.7-2.2) mg/dL Iron (45-180) ug/dL TIBC (261-462) ug/dL % Saturation (20-55) % Total Bilirubin (0.2-1.3) mg/dL AST (17-59) U/L ALT (7-56) U/L Alkaline Phosphatase (38-126) U/L Total Protein (5.8-8.3) g/dL Albumin (3.0-4.8) g/dL Globulin gm/dL Albumin/Globulin Ratio (1.1-1.8) Ur Random Creatinine mg/dL U Random Total Protein mg/L Urine Microalbumin (0.0-16.6) mg/L Complement C3 (88.0-165.0) mg/dL Complement C4 (14.0-44.0) mg/dL RPR (NONREACTIVE) Hepatitis A IgM Ab (NEGATIVE) Hep Bs Antigen (NEGATIVE) Hep B Core IgM Ab (NEGATIVE) Hepatitis C Antibody (NEGATIVE) Laboratory Results - last 24 hr 07/15/17 07/15/17 07/15/17 15:30 19:50 19:50 WBC RBC Hgb Hct MCV MCH MCHC RDW Plt Count MPV Gran % Lymph % (Auto) [place] % (Auto) Eos % (Auto) Baso % (Auto) Gran # Lymph # (Auto) [place] # (Auto) Eos # (Auto) Baso # (Auto) PT INR APTT Sodium Potassium Chloride Carbon Dioxide Anion Gap BUN Creatinine Est GFR ( Amer) Est GFR (Non-Af Amer) Random Glucose Serum Osmolality 317 H Calcium Phosphorus Magnesium Iron TIBC % Saturation Total Bilirubin AST ALT Alkaline Phosphatase Total Protein Albumin Globulin Albumin/Globulin Ratio Ur Random Creatinine U Random Total Protein Urine Microalbumin Complement C3 Complement C4 RPR Nonreactive Hepatitis A IgM Ab Negative Hep Bs Antigen Negative Hep B Core IgM Ab Negative Hepatitis C Antibody Negative 07/16/17 07/16/17 07/17/17 05:00 05:00 01:02 WBC RBC Hgb Hct MCV MCH MCHC RDW Plt Count MPV Gran % Lymph % (Auto) [place] % (Auto) Eos % (Auto) Baso % (Auto) Gran # Lymph # (Auto) [place] # (Auto) Eos # (Auto) Baso # (Auto) PT INR APTT Sodium Potassium Chloride Carbon Dioxide Anion Gap BUN Creatinine Est GFR ( Amer) Est GFR (Non-Af Amer) Random Glucose Serum Osmolality Calcium Phosphorus Magnesium Iron TIBC % Saturation Total Bilirubin AST ALT Alkaline Phosphatase Total Protein Albumin Globulin Albumin/Globulin Ratio Ur Random Creatinine 28 U Random Total Protein 34 Urine Microalbumin 114.5 H Complement C3 138.0 Complement C4 64.8 H RPR Hepatitis A IgM Ab Hep Bs Antigen Hep B Core IgM Ab Hepatitis C Antibody 07/17/17 07/17/17 07/17/17 05:16 05:16 05:16 WBC 6.1 RBC 3.91 Hgb 12.2 L Hct 35.6 L MCV 91.0 MCH 31.2 MCHC 34.3 RDW 14.9 H Plt Count 301 MPV 10.6 Gran % 58.0 Lymph % (Auto) 24.4 [place] % (Auto) 10.2 H Eos % (Auto) 6.9 H Baso % (Auto) 0.5 Gran # 3.52 Lymph # (Auto) 1.5 [place] # (Auto) 0.6 Eos # (Auto) 0.4 Baso # (Auto) 0.03 PT 12.2 INR 1.06 APTT 35.1 Sodium 142 Potassium 3.8 Chloride 105 Carbon Dioxide 25 Anion Gap 16 BUN 56 H Creatinine 7.9 H* Est GFR ( Amer) 9 Est GFR (Non-Af Amer) 7 Random Glucose 109 Serum Osmolality Calcium 10.3 Phosphorus 5.1 H Magnesium 1.7 Iron TIBC % Saturation Total Bilirubin 0.4 AST 24 ALT 24 Alkaline Phosphatase 112 Total Protein 7.5 Albumin 3.7 Globulin 3.8 Albumin/Globulin Ratio 1.0 L Ur Random Creatinine U Random Total Protein Urine Microalbumin Complement C3 Complement C4 RPR Hepatitis A IgM Ab Hep Bs Antigen Hep B Core IgM Ab Hepatitis C Antibody 07/17/17 05:16 WBC RBC Hgb Hct MCV MCH MCHC RDW Plt Count MPV Gran % Lymph % (Auto) [place] % (Auto) Eos % (Auto) Baso % (Auto) Gran # Lymph # (Auto) [place] # (Auto) Eos # (Auto) Baso # (Auto) PT INR APTT Sodium Potassium Chloride Carbon Dioxide Anion Gap BUN Creatinine Est GFR ( Amer) Est GFR (Non-Af Amer) Random Glucose Serum Osmolality Calcium Phosphorus Magnesium Iron 21 L TIBC 283 % Saturation 8 L Total Bilirubin AST ALT Alkaline Phosphatase Total Protein Albumin Globulin Albumin/Globulin Ratio Ur Random Creatinine U Random Total Protein Urine Microalbumin Complement C3 Complement C4 RPR Hepatitis A IgM Ab Hep Bs Antigen Hep B Core IgM Ab Hepatitis C Antibody Critical Care Progress Note - Nutrition Nutrition: Nutrition Category Date Time Status NPO Diet [DIET] Diets 07/16/17 Dinner Ordered Assessment/Plan - Assessment and Plan (Free Text) Plan: 52 year old male with past medical history of HTN, CKD, and alcohol/substance abuse presents to the hospital for hypertensive emergency and acute renal failure. Patient also noted to have fluid overload leading to shortness of breath, likely indicative of CHF exacerbation. Patient thought to have infiltrate on CXR. Will recommend echocardiogram. Patient will be started on Azithromycin today, in addition to Rocephin for possible cystitis. Patient is scheduled for implantation of hemodialysis catheter today. We will continue patient on current medical regimen. Patient will be transferred out of ICU to telemetry today as he is stable. Markus, PGY-2 <Clyde Valencia - Last Filed: 07/17/17 11:19> CCU Objective - Vital Signs / Intake & Output Vital Signs (Last 4 hours): Vital Signs Temp Pulse Resp BP Pulse Ox 07/17/17 09:22 126/66 07/17/17 09:21 126/66 07/17/17 09:11 126/66 07/17/17 08:04 63 136/95 H 07/17/17 08:00 98.4 F 60 17 136/95 H 96 Intake and Output (Last 8hrs): Intake & Output 07/16/17 07/17/17 07/17/17 22:59 06:59 14:59 Intake Total 1228 800 Output Total 1500 1300 Balance -272 -500 Weight 175 lb Intake: IV 278 Left Antecubital 200 Left Hand 69 Oral 950 800 Output: Urine 1500 1300 Urine, Voided 1500 1300 Stool 0 - Medications Active Medications: Active Medications Generic Name Dose Route Start Last Admin Trade Name Freq PRN Reason Stop Dose Admin Acetaminophen 650 mg 07/15/17 21:05 07/16/17 10:52 Tylenol 325mg Tab PO 650 mg Q6H PRN Administration Headache Amlodipine Besylate 10 mg 07/16/17 10:00 07/16/17 10:04 Norvasc PO 10 mg DAILY DEREK Administration Aspirin 81 mg 07/16/17 10:00 07/17/17 09:21 Aspirin Chewable PO 81 mg DAILY DEREK Administration Atorvastatin Calcium 10 mg 07/15/17 17:00 07/16/17 17:10 Lipitor PO 10 mg DIN DEREK Administration Calcium Acetate 667 mg 07/16/17 08:00 07/17/17 08:04 Phoslo PO 667 mg WM DEREK Administration Chlordiazepoxide 5 mg 07/17/17 10:00 Librium PO 12 DEREK Protocol Clonidine HCl 0.1 mg 07/17/17 16:00 Catapres PO Q8H DEREK Folic Acid 1 mg 07/17/17 10:00 Folic Acid PO DAILY DEREK Furosemide 100 mg 07/15/17 22:00 07/17/17 09:21 Lasix IVP 100 mg Q12 DEREK Administration Furosemide 20 mg 07/15/17 22:00 07/17/17 09:22 Lasix IVP 20 mg Q12 DEREK Administration Heparin Sodium (Porcine) 5,000 units 07/15/17 22:00 07/17/17 05:55 Heparin SC 5,000 units Q8 DEREK Administration Protocol Hydralazine HCl 10 mg 07/15/17 14:06 07/16/17 22:14 Apresoline IVP 10 mg Q6 PRN Administration SBP > 150 Hydralazine HCl 50 mg 07/16/17 14:00 07/17/17 08:04 Apresoline PO 50 mg Q6H DEREK Administration Nitroglycerin/Dextrose 50 mg in 250 mls @ 3 mls/hr 07/15/17 12:20 07/16/17 17 :00 Nitroglycerin 50 Mg/250 Ml D5w IV 0 mcg/min .Q24H PRN 0 mls/hr Titrate per protocol Titration Protocol 10 MCG/MIN Ceftriaxone Sodium 1 gm in 100 mls @ 100 mls/hr 07/15/17 15:45 07/17/17 09:21 Rocephin 1 Gram Ivpb IVPB 100 mls/hr DAILY DEREK Administration Protocol Azithromycin 500 mg in 250 mls @ 167 mls/hr 07/17/17 10:00 Zithromax 500mg In Ns IVPB DAILY DEREK Protocol Ondansetron HCl 4 mg 07/15/17 15:43 Zofran Inj IVP Q6H PRN Nausea/Vomiting Pantoprazole Sodium 40 mg 07/15/17 18:00 07/16/17 17:11 Protonix Ec Tab PO 40 mg 1800 DEREK Administration Thiamine HCl 100 mg 07/15/17 14:45 07/17/17 09:22 Vitamin B1 Inj IV 100 mg DAILY DEREK Administration - Patient Studies Lab Studies: Microbiology Studies 07/15/17 15:40 MRSA Culture (Admit) - Final Naris MRSA NOT DETECTED 07/15/17 14:14 Urine Culture - Final Urine No Growth (<1,000 CFU/ML) Lab Studies 07/17/17 07/17/17 07/17/17 Range/Units 05:16 05:16 05:16 WBC (4.5-11.0) 10^3/ul RBC (3.5-6.1) 10^6/uL Hgb (14.0-18.0) g/dL Hct (42.0-52.0) % MCV (80.0-105.0) fl MCH (25.0-35.0) pg MCHC (31.0-37.0) g/dl RDW (11.5-14.5) % Plt Count (120.0-450.0) 10^3/uL MPV (7.0-11.0) fl Gran % (50.0-68.0) % Lymph % (Auto) (22.0-35.0) % [place] % (Auto) (1.0-6.0) % Eos % (Auto) (1.5-5.0) % Baso % (Auto) (0.0-3.0) % Gran # (1.4-6.5) Lymph # (Auto) (1.2-3.4) [place] # (Auto) (0.1-0.6) Eos # (Auto) (0.0-0.7) Baso # (Auto) (0.0-2.0) K/mm3 PT 12.2 (9.4-12.5) SECONDS INR 1.06 (0.93-1.08) APTT 35.1 (25.1-36.5) Seconds Sodium 142 (132-148) mmol/L Potassium 3.8 (3.6-5.0) mmol/L Chloride 105 (98-107) mmol/L Carbon Dioxide 25 (21-33) mmol/L Anion Gap 16 (10-20) BUN 56 H (7-21) mg/dL Creatinine 7.9 H* (0.8-1.5) mg/dl Est GFR ( Amer) 9 Est GFR (Non-Af Amer) 7 Random Glucose 109 (70-110) mg/dL Serum Osmolality (272-300) mosm/kg Calcium 10.3 (8.4-10.5) mg/dL Phosphorus 5.1 H (2.5-4.5) mg/dL Magnesium 1.7 (1.7-2.2) mg/dL Iron 21 L (45-180) ug/dL TIBC 283 (261-462) ug/dL % Saturation 8 L (20-55) % Total Bilirubin 0.4 (0.2-1.3) mg/dL AST 24 (17-59) U/L ALT 24 (7-56) U/L Alkaline Phosphatase 112 (38-126) U/L Total Protein 7.5 (5.8-8.3) g/dL Albumin 3.7 (3.0-4.8) g/dL Globulin 3.8 gm/dL Albumin/Globulin Ratio 1.0 L (1.1-1.8) Ur Random Creatinine mg/dL U Random Total Protein mg/L Urine Microalbumin (0.0-16.6) mg/L Complement C3 (88.0-165.0) mg/dL Complement C4 (14.0-44.0) mg/dL RPR (NONREACTIVE) Hepatitis A IgM Ab (NEGATIVE) Hep Bs Antigen (NEGATIVE) Hep B Core IgM Ab (NEGATIVE) Hepatitis C Antibody (NEGATIVE) 07/17/17 07/17/17 07/16/17 Range/Units 05:16 01:02 05:00 WBC 6.1 (4.5-11.0) 10^3/ul RBC 3.91 (3.5-6.1) 10^6/uL Hgb 12.2 L (14.0-18.0) g/dL Hct 35.6 L (42.0-52.0) % MCV 91.0 (80.0-105.0) fl MCH 31.2 (25.0-35.0) pg MCHC 34.3 (31.0-37.0) g/dl RDW 14.9 H (11.5-14.5) % Plt Count 301 (120.0-450.0) 10^3/uL MPV 10.6 (7.0-11.0) fl Gran % 58.0 (50.0-68.0) % Lymph % (Auto) 24.4 (22.0-35.0) % [place] % (Auto) 10.2 H (1.0-6.0) % Eos % (Auto) 6.9 H (1.5-5.0) % Baso % (Auto) 0.5 (0.0-3.0) % Gran # 3.52 (1.4-6.5) Lymph # (Auto) 1.5 (1.2-3.4) [place] # (Auto) 0.6 (0.1-0.6) Eos # (Auto) 0.4 (0.0-0.7) Baso # (Auto) 0.03 (0.0-2.0) K/mm3 PT (9.4-12.5) SECONDS INR (0.93-1.08) APTT (25.1-36.5) Seconds Sodium (132-148) mmol/L Potassium (3.6-5.0) mmol/L Chloride (98-107) mmol/L Carbon Dioxide (21-33) mmol/L Anion Gap (10-20) BUN (7-21) mg/dL Creatinine (0.8-1.5) mg/dl Est GFR ( Amer) Est GFR (Non-Af Amer) Random Glucose (70-110) mg/dL Serum Osmolality (272-300) mosm/kg Calcium (8.4-10.5) mg/dL Phosphorus (2.5-4.5) mg/dL Magnesium (1.7-2.2) mg/dL Iron (45-180) ug/dL TIBC (261-462) ug/dL % Saturation (20-55) % Total Bilirubin (0.2-1.3) mg/dL AST (17-59) U/L ALT (7-56) U/L Alkaline Phosphatase (38-126) U/L Total Protein (5.8-8.3) g/dL Albumin (3.0-4.8) g/dL Globulin gm/dL Albumin/Globulin Ratio (1.1-1.8) Ur Random Creatinine 28 mg/dL U Random Total Protein 34 mg/L Urine Microalbumin 114.5 H (0.0-16.6) mg/L Complement C3 (88.0-165.0) mg/dL Complement C4 (14.0-44.0) mg/dL RPR (NONREACTIVE) Hepatitis A IgM Ab (NEGATIVE) Hep Bs Antigen (NEGATIVE) Hep B Core IgM Ab (NEGATIVE) Hepatitis C Antibody (NEGATIVE) 07/16/17 07/15/17 07/15/17 Range/Units 05:00 19:50 19:50 WBC (4.5-11.0) 10^3/ul RBC (3.5-6.1) 10^6/uL Hgb (14.0-18.0) g/dL Hct (42.0-52.0) % MCV (80.0-105.0) fl MCH (25.0-35.0) pg MCHC (31.0-37.0) g/dl RDW (11.5-14.5) % Plt Count (120.0-450.0) 10^3/uL MPV (7.0-11.0) fl Gran % (50.0-68.0) % Lymph % (Auto) (22.0-35.0) % [place] % (Auto) (1.0-6.0) % Eos % (Auto) (1.5-5.0) % Baso % (Auto) (0.0-3.0) % Gran # (1.4-6.5) Lymph # (Auto) (1.2-3.4) [place] # (Auto) (0.1-0.6) Eos # (Auto) (0.0-0.7) Baso # (Auto) (0.0-2.0) K/mm3 PT (9.4-12.5) SECONDS INR (0.93-1.08) APTT (25.1-36.5) Seconds Sodium (132-148) mmol/L Potassium (3.6-5.0) mmol/L Chloride (98-107) mmol/L Carbon Dioxide (21-33) mmol/L Anion Gap (10-20) BUN (7-21) mg/dL Creatinine (0.8-1.5) mg/dl Est GFR ( Amer) Est GFR (Non-Af Amer) Random Glucose (70-110) mg/dL Serum Osmolality (272-300) mosm/kg Calcium (8.4-10.5) mg/dL Phosphorus (2.5-4.5) mg/dL Magnesium (1.7-2.2) mg/dL Iron (45-180) ug/dL TIBC (261-462) ug/dL % Saturation (20-55) % Total Bilirubin (0.2-1.3) mg/dL AST (17-59) U/L ALT (7-56) U/L Alkaline Phosphatase (38-126) U/L Total Protein (5.8-8.3) g/dL Albumin (3.0-4.8) g/dL Globulin gm/dL Albumin/Globulin Ratio (1.1-1.8) Ur Random Creatinine mg/dL U Random Total Protein mg/L Urine Microalbumin (0.0-16.6) mg/L Complement C3 138.0 (88.0-165.0) mg/dL Complement C4 64.8 H (14.0-44.0) mg/dL RPR Nonreactive (NONREACTIVE) Hepatitis A IgM Ab Negative (NEGATIVE) Hep Bs Antigen Negative (NEGATIVE) Hep B Core IgM Ab Negative (NEGATIVE) Hepatitis C Antibody Negative (NEGATIVE) 07/15/17 Range/Units 15:30 WBC (4.5-11.0) 10^3/ul RBC (3.5-6.1) 10^6/uL Hgb (14.0-18.0) g/dL Hct (42.0-52.0) % MCV (80.0-105.0) fl MCH (25.0-35.0) pg MCHC (31.0-37.0) g/dl RDW (11.5-14.5) % Plt Count (120.0-450.0) 10^3/uL MPV (7.0-11.0) fl Gran % (50.0-68.0) % Lymph % (Auto) (22.0-35.0) % [place] % (Auto) (1.0-6.0) % Eos % (Auto) (1.5-5.0) % Baso % (Auto) (0.0-3.0) % Gran # (1.4-6.5) Lymph # (Auto) (1.2-3.4) [place] # (Auto) (0.1-0.6) Eos # (Auto) (0.0-0.7) Baso # (Auto) (0.0-2.0) K/mm3 PT (9.4-12.5) SECONDS INR (0.93-1.08) APTT (25.1-36.5) Seconds Sodium (132-148) mmol/L Potassium (3.6-5.0) mmol/L Chloride (98-107) mmol/L Carbon Dioxide (21-33) mmol/L Anion Gap (10-20) BUN (7-21) mg/dL Creatinine (0.8-1.5) mg/dl Est GFR ( Amer) Est GFR (Non-Af Amer) Random Glucose (70-110) mg/dL Serum Osmolality 317 H (272-300) mosm/kg Calcium (8.4-10.5) mg/dL Phosphorus (2.5-4.5) mg/dL Magnesium (1.7-2.2) mg/dL Iron (45-180) ug/dL TIBC (261-462) ug/dL % Saturation (20-55) % Total Bilirubin (0.2-1.3) mg/dL AST (17-59) U/L ALT (7-56) U/L Alkaline Phosphatase (38-126) U/L Total Protein (5.8-8.3) g/dL Albumin (3.0-4.8) g/dL Globulin gm/dL Albumin/Globulin Ratio (1.1-1.8) Ur Random Creatinine mg/dL U Random Total Protein mg/L Urine Microalbumin (0.0-16.6) mg/L Complement C3 (88.0-165.0) mg/dL Complement C4 (14.0-44.0) mg/dL RPR (NONREACTIVE) Hepatitis A IgM Ab (NEGATIVE) Hep Bs Antigen (NEGATIVE) Hep B Core IgM Ab (NEGATIVE) Hepatitis C Antibody (NEGATIVE) Laboratory Results - last 24 hr 07/15/17 07/15/17 07/15/17 15:30 19:50 19:50 WBC RBC Hgb Hct MCV MCH MCHC RDW Plt Count MPV Gran % Lymph % (Auto) [place] % (Auto) Eos % (Auto) Baso % (Auto) Gran # Lymph # (Auto) [place] # (Auto) Eos # (Auto) Baso # (Auto) PT INR APTT Sodium Potassium Chloride Carbon Dioxide Anion Gap BUN Creatinine Est GFR ( Amer) Est GFR (Non-Af Amer) Random Glucose Serum Osmolality 317 H Calcium Phosphorus Magnesium Iron TIBC % Saturation Total Bilirubin AST ALT Alkaline Phosphatase Total Protein Albumin Globulin Albumin/Globulin Ratio Ur Random Creatinine U Random Total Protein Urine Microalbumin Complement C3 Complement C4 RPR Nonreactive Hepatitis A IgM Ab Negative Hep Bs Antigen Negative Hep B Core IgM Ab Negative Hepatitis C Antibody Negative 07/16/17 07/16/17 07/17/17 05:00 05:00 01:02 WBC RBC Hgb Hct MCV MCH MCHC RDW Plt Count MPV Gran % Lymph % (Auto) [place] % (Auto) Eos % (Auto) Baso % (Auto) Gran # Lymph # (Auto) [place] # (Auto) Eos # (Auto) Baso # (Auto) PT INR APTT Sodium Potassium Chloride Carbon Dioxide Anion Gap BUN Creatinine Est GFR ( Amer) Est GFR (Non-Af Amer) Random Glucose Serum Osmolality Calcium Phosphorus Magnesium Iron TIBC % Saturation Total Bilirubin AST ALT Alkaline Phosphatase Total Protein Albumin Globulin Albumin/Globulin Ratio Ur Random Creatinine 28 U Random Total Protein 34 Urine Microalbumin 114.5 H Complement C3 138.0 Complement C4 64.8 H RPR Hepatitis A IgM Ab Hep Bs Antigen Hep B Core IgM Ab Hepatitis C Antibody 07/17/17 07/17/17 07/17/17 05:16 05:16 05:16 WBC 6.1 RBC 3.91 Hgb 12.2 L Hct 35.6 L MCV 91.0 MCH 31.2 MCHC 34.3 RDW 14.9 H Plt Count 301 MPV 10.6 Gran % 58.0 Lymph % (Auto) 24.4 [place] % (Auto) 10.2 H Eos % (Auto) 6.9 H Baso % (Auto) 0.5 Gran # 3.52 Lymph # (Auto) 1.5 [place] # (Auto) 0.6 Eos # (Auto) 0.4 Baso # (Auto) 0.03 PT 12.2 INR 1.06 APTT 35.1 Sodium 142 Potassium 3.8 Chloride 105 Carbon Dioxide 25 Anion Gap 16 BUN 56 H Creatinine 7.9 H* Est GFR ( Amer) 9 Est GFR (Non-Af Amer) 7 Random Glucose 109 Serum Osmolality Calcium 10.3 Phosphorus 5.1 H Magnesium 1.7 Iron TIBC % Saturation Total Bilirubin 0.4 AST 24 ALT 24 Alkaline Phosphatase 112 Total Protein 7.5 Albumin 3.7 Globulin 3.8 Albumin/Globulin Ratio 1.0 L Ur Random Creatinine U Random Total Protein Urine Microalbumin Complement C3 Complement C4 RPR Hepatitis A IgM Ab Hep Bs Antigen Hep B Core IgM Ab Hepatitis C Antibody 07/17/17 05:16 WBC RBC Hgb Hct MCV MCH MCHC RDW Plt Count MPV Gran % Lymph % (Auto) [place] % (Auto) Eos % (Auto) Baso % (Auto) Gran # Lymph # (Auto) [place] # (Auto) Eos # (Auto) Baso # (Auto) PT INR APTT Sodium Potassium Chloride Carbon Dioxide Anion Gap BUN Creatinine Est GFR ( Amer) Est GFR (Non-Af Amer) Random Glucose Serum Osmolality Calcium Phosphorus Magnesium Iron 21 L TIBC 283 % Saturation 8 L Total Bilirubin AST ALT Alkaline Phosphatase Total Protein Albumin Globulin Albumin/Globulin Ratio Ur Random Creatinine U Random Total Protein Urine Microalbumin Complement C3 Complement C4 RPR Hepatitis A IgM Ab Hep Bs Antigen Hep B Core IgM Ab Hepatitis C Antibody Critical Care Progress Note - Nutrition Nutrition: Nutrition Category Date Time Status NPO Diet [DIET] Diets 07/16/17 Dinner Ordered Assessment/Plan - Assessment and Plan (Free Text) Plan: Patient seen and examined on rounds with resident, agree with note with following additions/exceptions: Patient is 52yo male with PMHx of HTN, CKD stage V, Polysubstance abuse, presented with ARF, hypertensive emergency, and volume overload. Pt is on high dose IV diuresis, Lasix 120mg BID IV, responding minimally, clinically significantly improved, denies sob, cp, palpitations, [place], dizziness. No signs of etoh withdrawal on exam. CXR with possible RLL infiltrate. Afebrile, BP stable. HTN Urgency CHF acute exacerbation CKD/ESRD Polysubstance abuse Recommend: - supp o2 as needed - Lily Villafana - follow up cultures, procal - BP control - IV diuresis - follow up renal - HD catheter placement today - possible HD today as per renal - ECHO - low salt diet - FS control - CIWA protocol - GI ppx - DVT ppx - Stable, transfer to telemetry
[2017-07-17] MEDS: Midazolam 2 MG/2 ML VIAL ONE ×2 (11:04→11:55)
[2017-07-17] MEDS: Lidocaine 2% Inj (20ml) ONE ×2 (11:10→11:56)
[2017-07-17] MEDS: Azithromycin 500MG/NS 250ml 500 MG/250 ML BAG IVPB SCH (11:49)
[2017-07-17] MEDS: HEPARIN SODIUM/NS 1,000 ML IV ONE ×2 (11:56→22:00)
[2017-07-17 12:28] LABS: FERRITIN 55.3 ng/mL
--- NOTE | 2017-07-17 15:09 | CP.PCM.CON ---
<Porsha Booker - Last Filed: 07/17/17 15:51> History of Present Illness - History of Present Illness History of Present Illness: Surgery consult note for Dr. Tripp: Reason for consult: AVF creation Patient is a 52 year old male with a past medical history of HTN, CKD, cocaine abuse, and alcohol abuse, admitted to [facility] for acute on chronic renal failure, hypertensive emergency, and CHF. Pt also currently treated for UTI, and a RLL infiltrate. Pt's GFR was 9-10 this admission with BUN/Cr 52/7.6. Pt currently receiving dialysis via a right tunneled catheter placed by Dr Lieberman. Pt currently denies confusion, sob, fever, chills, nausea, vomiting. PSH: Hernia repair more than 10 years ago PMH: HTN, CKD, cocaine abuse, alcohol abuse Allergies: Lisinopril Family Hx: Father-HTN, Brother-DM, Mother- gastric disease Tobacco- 1-4 cigarettes per day for 30 years Alcohol- 2 or 3 beers on the weekend Review of Systems - Review of Systems All systems: reviewed and no additional remarkable complaints except Review of Systems: as per HPI Past Patient History - Infectious Disease Hx of Infectious Diseases: None - Tetanus Immunizations Tetanus Immunization: Unknown - Past Medical History & Family History Past Medical History?: Yes - Past Social History Smoking Status: Light Smoker < 10 Cigarettes Daily Drugs: Cocaine - CARDIAC Hx Hypertension: Yes - PULMONARY Hx Respiratory Disorders: No - NEUROLOGICAL Hx Neurological Disorder: No - HEENT Hx HEENT Problems: No - RENAL Hx Chronic Kidney Disease: No - ENDOCRINE/METABOLIC Hx Endocrine Disorders: No - HEMATOLOGICAL/ONCOLOGICAL Hx Blood Transfusions: No Hx Blood Transfusion Reaction: No - INTEGUMENTARY Hx Dermatological Problems: No - MUSCULOSKELETAL/RHEUMATOLOGICAL Hx Musculoskeletal Disorders: No - GASTROINTESTINAL Hx Gastrointestinal Disorders: No - GENITOURINARY/GYNECOLOGICAL Hx Genitourinary Disorders: No - PSYCHIATRIC Hx Psychophysiologic Disorder: No Hx Depression: No Hx Emotional Abuse: No Hx Physical Abuse: No Hx Substance Use: No - SURGICAL HISTORY Hx Surgeries: Yes - ANESTHESIA Hx Anesthesia Reactions: No Hx Malignant Hyperthermia: No Meds Allergies/Adverse Reactions: Allergies Allergy/AdvReac Type Severity Reaction Status Date / Time lisinopril Allergy ANAPHYLAXIS Verified 07/15/17 09:49 - Medications Medications: Current Medications Acetaminophen (Tylenol 325mg Tab) 650 mg PO Q6H PRN PRN Reason: Headache Last Admin: 03/11/18 10:52 Dose: 650 mg Amlodipine Besylate (Norvasc) 10 mg PO DAILY COUNTS INCLUDE 234 BEDS AT THE [facility] Last Admin: 07/17/17 09:45 Dose: Not Given Aspirin (Aspirin Chewable) 81 mg PO DAILY COUNTS INCLUDE 234 BEDS AT THE [facility] Last Admin: 07/17/17 09:21 Dose: 81 mg Atorvastatin Calcium (Lipitor) 10 mg PO DIN COUNTS INCLUDE 234 BEDS AT THE [facility] Last Admin: 07/16/17 17:10 Dose: 10 mg Calcium Acetate (Phoslo) 667 mg PO WM COUNTS INCLUDE 234 BEDS AT THE [facility] Last Admin: 07/17/17 11:55 Dose: Not Given Chlordiazepoxide (Librium) 5 mg PO 12 DEREK PRN Reason: Protocol Last Admin: 07/17/17 10:47 Dose: Not Given Clonidine HCl (Catapres) 0.1 mg PO Q8H COUNTS INCLUDE 234 BEDS AT THE [facility] Folic Acid (Folic Acid) 1 mg PO DAILY COUNTS INCLUDE 234 BEDS AT THE [facility] Last Admin: 07/17/17 12:05 Dose: 1 mg Furosemide (Lasix) 100 mg IVP Q12 COUNTS INCLUDE 234 BEDS AT THE [facility] Last Admin: 07/17/17 09:21 Dose: 100 mg Furosemide (Lasix) 20 mg IVP Q12 COUNTS INCLUDE 234 BEDS AT THE [facility] Last Admin: 07/17/17 09:22 Dose: 20 mg Heparin Sodium (Porcine) (Heparin) 5,000 units SC Q8 COUNTS INCLUDE 234 BEDS AT THE [facility] PRN Reason: Protocol Last Admin: 07/17/17 14:46 Dose: Not Given Hydralazine HCl (Apresoline) 10 mg IVP Q6 PRN PRN Reason: SBP > 150 Last Admin: 07/16/17 22:14 Dose: 10 mg Hydralazine HCl (Apresoline) 50 mg PO Q6H COUNTS INCLUDE 234 BEDS AT THE [facility] Last Admin: 07/17/17 08:04 Dose: 50 mg Nitroglycerin/Dextrose (Nitroglycerin 50 Mg/250 Ml D5w) 50 mg in 250 mls @ 3 mls/hr IV .Q24H PRN; Protocol; 10 MCG/MIN PRN Reason: Titrate per protocol Last Titration: 07/16/17 17:00 Dose: 0 mcg/min, 0 mls/hr Azithromycin (Zithromax 500mg In Ns) 500 mg in 250 mls @ 167 mls/hr IVPB DAILY COUNTS INCLUDE 234 BEDS AT THE [facility] PRN Reason: Protocol Last Admin: 07/17/17 11:49 Dose: 167 mls/hr Ondansetron HCl (Zofran Inj) 4 mg IVP Q6H PRN PRN Reason: Nausea/Vomiting Pantoprazole Sodium (Protonix Ec Tab) 40 mg PO 1800 COUNTS INCLUDE 234 BEDS AT THE [facility] Last Admin: 07/16/17 17:11 Dose: 40 mg Thiamine HCl (Vitamin B1 Inj) 100 mg IV DAILY COUNTS INCLUDE 234 BEDS AT THE [facility] Last Admin: 07/17/17 09:22 Dose: 100 mg Physical Exam - Constitutional Appears: Non-toxic, No Acute Distress, Older Than Stated Age, Chronically Ill - Head Exam Head Exam: ATRAUMATIC, NORMOCEPHALIC - Eye Exam Eye Exam: EOMI, PERRL. absent: Conjunctival injection, Nystagmus, Scleral icterus Pupil Exam: NORMAL ACCOMODATION, PERRL. absent: Fixed, Irregular, Unequal - ENT Exam ENT Exam: Mucous Membranes Moist - Neck Exam Neck exam: Positive for: Normal Inspection - Respiratory Exam Respiratory Exam: Decreased Breath Sounds. absent: Accessory Muscle Use, Rales , Rhonchi, Wheezes, Respiratory Distress, Stridor - Cardiovascular Exam Cardiovascular Exam: RRR, +S1, +S2. absent: Systolic Murmur - GI/Abdominal Exam GI & Abdominal Exam: Normal Bowel Sounds, Soft. absent: Distended, Firm, Guarding, Organomegaly, Rebound, Rigid, Tenderness - Extremities Exam Extremities exam: Positive for: normal inspection. Negative for: calf tenderness, pedal edema - Back Exam Back exam: NORMAL INSPECTION - Neurological Exam Neurological exam: Alert, Oriented x3 - Psychiatric Exam Psychiatric exam: Normal Affect, Normal Mood - Skin Skin Exam: Dry, Normal Color, Warm Results - Vital Signs Recent Vital Signs: Last Vital Signs Temp 97.9 F 07/17/17 12:00 Pulse 58 L 07/17/17 11:10 Resp 22 07/17/17 11:10 BP 152/98 H 07/17/17 11:00 Pulse Ox 96 07/17/17 11:10 - Labs Result Diagrams: 07/17/17 05:16 07/17/17 05:16 Labs: Laboratory Results - last 24 hr 07/15/17 07/17/17 07/17/17 19:50 01:02 05:16 WBC 6.1 RBC 3.91 Hgb 12.2 L Hct 35.6 L MCV 91.0 MCH 31.2 MCHC 34.3 RDW 14.9 H Plt Count 301 MPV 10.6 Gran % 58.0 Lymph % (Auto) 24.4 [place] % (Auto) 10.2 H Eos % (Auto) 6.9 H Baso % (Auto) 0.5 Gran # 3.52 Lymph # (Auto) 1.5 [place] # (Auto) 0.6 Eos # (Auto) 0.4 Baso # (Auto) 0.03 PT INR APTT Sodium Potassium Chloride Carbon Dioxide Anion Gap BUN Creatinine Est GFR ( Amer) Est GFR (Non-Af Amer) Random Glucose Calcium Phosphorus Magnesium Iron TIBC % Saturation Ferritin Total Bilirubin AST ALT Alkaline Phosphatase Total Protein Albumin Globulin Albumin/Globulin Ratio Ur Random Creatinine 28 U Random Total Protein 34 RPR Nonreactive 07/17/17 07/17/17 07/17/17 05:16 05:16 05:16 WBC RBC Hgb Hct MCV MCH MCHC RDW Plt Count MPV Gran % Lymph % (Auto) [place] % (Auto) Eos % (Auto) Baso % (Auto) Gran # Lymph # (Auto) [place] # (Auto) Eos # (Auto) Baso # (Auto) PT 12.2 INR 1.06 APTT 35.1 Sodium 142 Potassium 3.8 Chloride 105 Carbon Dioxide 25 Anion Gap 16 BUN 56 H Creatinine 7.9 H* Est GFR ( Amer) 9 Est GFR (Non-Af Amer) 7 Random Glucose 109 Calcium 10.3 Phosphorus 5.1 H Magnesium 1.7 Iron 21 L TIBC 283 % Saturation 8 L Ferritin 55.3 Total Bilirubin 0.4 AST 24 ALT 24 Alkaline Phosphatase 112 Total Protein 7.5 Albumin 3.7 Globulin 3.8 Albumin/Globulin Ratio 1.0 L Ur Random Creatinine U Random Total Protein RPR Assessment & Plan - Assessment and Plan (Free Text) Assessment: 52 year old male with a past medical history of HTN, CKD stage V, cocaine/ alcohol abuse, admitted for acute on chronic renal failure, HTN emergency, CHF. Vascular surgery consulted for creation of AV fistula: - GFR 9-10 this admission, BUN/Cr 52/7.6 - Vein mapping - Renal recs appreciated - Cont with management of medical conditions as per primary team - DVT/GI PPX - Further recs as per Dr Tripp. - Date & Time Date: 07/17/17 Time: 15:50 <Sagrario Jean - Last Filed: 07/18/17 07:25> History of Present Illness - History of Present Illness History of Present Illness: Pt had dialysis catheter placed and tolerated HD well. Pt is R handed. Able to perform daily activities. Meds - Medications Medications: Current Medications Acetaminophen (Tylenol 325mg Tab) 650 mg PO Q6H PRN PRN Reason: Headache Last Admin: 07/18/17 02:16 Dose: 650 mg Amlodipine Besylate (Norvasc) 10 mg PO DAILY COUNTS INCLUDE 234 BEDS AT [facility] Last Admin: 07/17/17 09:45 Dose: Not Given Aspirin (Aspirin Chewable) 81 mg PO DAILY COUNTS INCLUDE 234 BEDS AT [facility] Last Admin: 07/17/17 09:21 Dose: 81 mg Atorvastatin Calcium (Lipitor) 10 mg PO DIN COUNTS INCLUDE 234 BEDS AT [facility] Last Admin: 07/17/17 18:21 Dose: 10 mg Calcium Acetate (Phoslo) 667 mg PO WM COUNTS INCLUDE 234 BEDS AT [facility] Last Admin: 07/17/17 18:21 Dose: 667 mg Clonidine HCl (Catapres) 0.1 mg PO Q8H COUNTS INCLUDE 234 BEDS AT [facility] Last Admin: 07/17/17 23:34 Dose: 0.1 mg Folic Acid (Folic Acid) 1 mg PO DAILY COUNTS INCLUDE 234 BEDS AT [facility] Last Admin: 07/17/17 12:05 Dose: 1 mg Heparin Sodium (Porcine) (Heparin) 5,000 units SC Q8 COUNTS INCLUDE 234 BEDS AT THE [facility] PRN Reason: Protocol Last Admin: 07/18/17 05:11 Dose: 5,000 units Hydralazine HCl (Apresoline) 10 mg IVP Q6 PRN PRN Reason: SBP > 150 Last Admin: 07/16/17 22:14 Dose: 10 mg Hydralazine HCl (Apresoline) 25 mg PO Q8H COUNTS INCLUDE 234 BEDS AT THE [facility] Azithromycin (Zithromax 500mg In Ns) 500 mg in 250 mls @ 167 mls/hr IVPB DAILY COUNTS INCLUDE 234 BEDS AT THE [facility] PRN Reason: Protocol Last Admin: 07/17/17 11:49 Dose: 167 mls/hr Ceftriaxone Sodium (Rocephin 1 Gram Ivpb) 1 gm in 100 mls @ 100 mls/hr IVPB DAILY COUNTS INCLUDE 234 BEDS AT THE [facility] PRN Reason: Protocol Ondansetron HCl (Zofran Inj) 4 mg IVP Q6H PRN PRN Reason: Nausea/Vomiting Pantoprazole Sodium (Protonix Ec Tab) 40 mg PO 1800 COUNTS INCLUDE 234 BEDS AT [facility] Last Admin: 07/17/17 18:21 Dose: 40 mg Thiamine HCl (Vitamin B1 Inj) 100 mg IV DAILY COUNTS INCLUDE 234 BEDS AT [facility] Last Admin: 07/17/17 09:22 Dose: 100 mg Results - Vital Signs Recent Vital Signs: Last Vital Signs Temp 97.4 F L 07/18/17 05:55 Pulse 83 07/18/17 05:55 Resp 18 07/18/17 05:55 BP 147/87 07/18/17 05:55 Pulse Ox 98 07/18/17 05:55 - Labs Result Diagrams: 07/18/17 06:00 07/18/17 06:00 Labs: Laboratory Results - last 24 hr 07/16/17 07/16/17 07/17/17 05:00 05:00 05:16 WBC RBC Hgb Hct MCV MCH MCHC RDW Plt Count MPV Sodium Potassium Chloride Carbon Dioxide Anion Gap BUN Creatinine Est GFR ( Amer) Est GFR (Non-Af Amer) Random Glucose Calcium Phosphorus Magnesium Ferritin 55.3 Total Protein (PEP) 7.5 Proteinase 3 (PR3) <1.0 Myeloperoxidase Ab <1.0 07/18/17 07/18/17 06:00 06:00 WBC 6.2 RBC 3.80 Hgb 11.7 L Hct 34.6 L MCV 91.1 MCH 30.8 MCHC 33.8 RDW 14.8 H Plt Count 250 MPV 10.3 Sodium 139 Potassium 3.6 Chloride 104 Carbon Dioxide 24 Anion Gap 15 BUN 42 H Creatinine 6.5 H Est GFR ( Amer) 11 Est GFR (Non-Af Amer) 9 Random Glucose 103 Calcium 9.8 Phosphorus 4.4 Magnesium 1.6 L Ferritin Total Protein (PEP) Proteinase 3 (PR3) Myeloperoxidase Ab Assessment & Plan - Assessment and Plan (Free Text) Assessment: OR on Wed for AVF L arm precaution Will DW Dr. Tripp
--- NOTE | 2017-07-17 16:17 | PN ---
REASON FOR THE CONSULTATION AND FOLLOWUP: CHF, hypertension, renal failure, alcohol abuse, cocaine abuse, poor compliance with the medication. SUBJECTIVE: The patient is lying flat on the bed and not in apparent distress. Denies any chest pain, shortness of breath, or any palpitation. OBJECTIVE: GENERAL: Not in any apparent distress, lying on the left lateral position. VITAL SIGNS: Temperature afebrile, heart rate 63, and blood pressure . HEENT: PERRLA. Extraocular muscles Intact. NECK: Supple. No carotid bruits or thyromegaly. CHEST: Clear to auscultation. HEART: S1 and S2, regular. ABDOMEN: Soft. EXTREMITIES: Clubbing and cyanosis negative. LABORATORY DATA: Blood workup as follows: WBC 8.1, hemoglobin 12.2, hematocrit 35.6, and platelet count 301. Chemistries show sodium 142, potassium 4, chloride 105, carbon dioxide 25, anion gap of 16. BUN 56, creatinine 7.9. IMPRESSION: Congestive heart failure; fluid overload secondary to renal failure; uncontrolled hypertension; noncompliance with medication; history of substance abuse, alcohol abuse, tobacco abuse, and cocaine abuse; hyperlipidemia. He still takes alcohol 2 to 3 times a day, drinks heavy alcohol. Dialysis catheter is not working. He is going for placement of dialysis catheter today. Then, the patient will get the dialysis. In the interim, continue broad-spectrum antibiotics as ordered. Continue hydralazine p.r.n. for elevated blood pressure and the patient hydralazine, clonidine, and amlodipine. He is for dialysis catheter tomorrow. Further recommendation depending on hospital course. We will get echo to assess the LV function. We will follow with you. The patient is cleared from cardiac point of view to go for dialysis catheter. Thank you Dr. Bonner for providing us the opportunity in taking care of the patient, Reji Rauschcrow. Bal Louie MD
[2017-07-17 16:54] LABS: PROTEINASE-3 <1.0 AI (<1.0)
--- NOTE | 2017-07-17 17:56 | VASCULAR ---
PROCEDURE: Ultrasound and fluoroscopic tunneled right IJ dialysis catheter. CLINICAL HISTORY: ESRD PHYSICIAN(S): Zeus Lieberman M.D. TECHNIQUE: The relative risks and indications for the procedure were explained to the patient and informed written consent obtained. The patient was placed supine on the arteriography table and the right neck/chest was prepped and draped in the usual sterile fashion. 1% Xylocaine was used to anesthetize the skin and soft tissues at the puncture site. Conscious sedation and monitoring were provided throughout the procedure by a nurse. Under direct ultrasound guidance, the rightinternal jugular vein was punctured with a micropuncture set. A 0.035 Glidewire was advanced into the IVC. Sequential dilatation was performed with subsequent placement of a 28cm Romero II catheter with its tip in the right atrium. A retrograde tunnel below the right clavicle was performed. The catheter was trimmed and the hub attached. Both ports aspirate and inject easily. The catheter was secured and a dressing applied. The patient tolerated the procedure well. IMPRESSION: 1. Ultrasound and fluoroscopically placed right IJ tunneled dialysis catheter.
[2017-07-17] MEDS: Pantoprazole 40 mg EC Tab PO SCH (18:21)
--- NOTE | 2017-07-18 02:46 | CON ---
DATE: REASON FOR CONSULTATION: AV fistula placement for chronic dialysis. HISTORY OF PRESENT ILLNESS: Patient is a 52-year-old, hypertensive, cocaine abuser, who was admitted for fluid overload. He was found to have chronic renal failure which according to the patient has been in existence for few years. He has been [facility] at the [facility]. He was noncompliant with followup or medication or recommendation for initiation of hemodialysis. His cocaine habit had been for over 10 years. According to him, he only did sniff and snort cocaine; he never injects, he used it two times a week. He also is an alcoholic and smoker. REVIEW OF SYSTEMS: Unreliable except for hypertension. PHYSICAL EXAMINATION: GENERAL: Show a well-appearing black male in no acute distress, sitting up. HEENT: Within normal limits. CHEST: Clear. ABDOMEN: Soft. EXTREMITIES: There is no edema on both legs. Pulses were intact all the way to the pedal pulses. There does not appear to be any scar. LABORATORY DATA: Show a hemoglobin 12.4 and WBC of 7. BUN is 52 and creatinine is 7.6. Ultrasound of the kidney showed bilateral echogenic kidneys suggestive of chronic renal failure. PLAN: Placement of PermCath, vein mapping for left arm. The patient has been discussed with , and dialysis will be placed on Monday. Karli Tripp MD
[2017-07-18 06:21] LABS: HEMOGLOBIN 11.7 g/dL (14.0-18.0); MEAN CELL VOLUME 91.1 fl (80.0-105.0); MEAN CORPUSCULAR HEMOGLOBIN 30.8 pg (25.0-35.0); MEAN CORPUSCULAR HGB CONC 33.8 g/dl (31.0-37.0); MEAN PLATELET VOLUME 10.3 fl (7.0-11.0); RBC 3.8 10^6/uL (3.5-6.1); RED CELL DISTRIBUTION WIDTH 14.8 % (11.5-14.5); WHITE BLOOD COUNT 6.2 10^3/ul (4.5-11.0)
[2017-07-18 06:47] LABS: CALCIUM 9.8 mg/dL (8.4-10.5)
--- NOTE | 2017-07-18 07:28 | CP.PCM.PN ---
Subjective - Date & Time of Evaluation Date of Evaluation: 07/17/17 Time of Evaluation: 11:00 - Subjective Subjective: Patient seen on 1st ever HD session; denies sob; no nausea/headache being reported; Objective - Vital Signs/Intake and Output Vital Signs (last 24 hours): Temp Pulse Resp BP Pulse Ox 97.4 F L 83 18 147/87 98 07/18/17 05:55 07/18/17 05:55 07/18/17 05:55 07/18/17 05:55 07/18/17 05:55 Vital Signs (72 hours) 07/15/17 07/15/17 07/15/17 09:50 09:58 10:06 Temperature Pulse Rate 90 84 84 Pulse Rate [ Apical] Respiratory 26 H 22 Rate Blood Pressure 207/113 H 196/154 H 196/154 H O2 Sat by Pulse 91 L 95 Oximetry 07/15/17 07/15/17 07/15/17 10:24 10:26 11:34 Temperature 98.3 F Pulse Rate 85 72 Pulse Rate [ Apical] Respiratory 19 25 H 19 Rate Blood Pressure 195/143 H 188/134 H O2 Sat by Pulse 93 L 97 Oximetry 07/15/17 07/15/17 07/15/17 11:53 12:22 13:16 Temperature 97.8 F 97.8 F Pulse Rate 69 69 Pulse Rate [ 69 Apical] Respiratory 18 18 Rate Blood Pressure 188/134 H 172/97 H 172/97 H O2 Sat by Pulse 98 Oximetry 07/15/17 07/15/17 07/15/17 13:58 14:01 14:02 Temperature Pulse Rate 79 Pulse Rate [ Apical] Respiratory 21 Rate Blood Pressure 174/119 H 174/119 H 174/119 H O2 Sat by Pulse 97 Oximetry 07/15/17 07/15/17 07/15/17 14:20 15:23 15:24 Temperature 98.0 F Pulse Rate 70 Pulse Rate [ Apical] Respiratory 29 H Rate Blood Pressure 178/107 H 192/146 H 183/131 H O2 Sat by Pulse 98 Oximetry 07/15/17 07/15/17 07/15/17 15:25 15:30 15:36 Temperature Pulse Rate 66 74 76 Pulse Rate [ Apical] Respiratory 19 33 H 21 Rate Blood Pressure 187/133 H O2 Sat by Pulse 95 Oximetry 07/15/17 07/15/17 07/15/17 15:40 15:47 15:50 Temperature Pulse Rate 67 69 66 Pulse Rate [ Apical] Respiratory 34 H 23 34 H Rate Blood Pressure 171/131 H O2 Sat by Pulse 95 94 L 94 L Oximetry 07/15/17 07/15/17 07/15/17 16:00 16:33 17:04 Temperature 97.8 F Pulse Rate 6 L 73 Pulse Rate [ Apical] Respiratory Rate Blood Pressure 172/126 H 159/107 H O2 Sat by Pulse Oximetry 07/15/17 07/15/17 07/15/17 20:00 20:03 21:00 Temperature 98.1 F Pulse Rate 70 70 69 Pulse Rate [ Apical] Respiratory 31 H 15 Rate Blood Pressure 163/108 H 163/108 H 186/93 H O2 Sat by Pulse 96 95 Oximetry 07/15/17 07/15/17 07/15/17 21:30 22:00 22:51 Temperature Pulse Rate 69 64 Pulse Rate [ Apical] Respiratory 23 Rate Blood Pressure 186/93 H 166/119 H 172/108 H O2 Sat by Pulse 94 L Oximetry 07/15/17 07/16/17 07/16/17 23:00 00:00 01:00 Temperature 97.9 F Pulse Rate 63 60 68 Pulse Rate [ Apical] Respiratory 17 16 24 Rate Blood Pressure 144/85 134/91 H 148/105 H O2 Sat by Pulse 97 97 96 Oximetry 07/16/17 07/16/17 07/16/17 01:10 01:20 01:30 Temperature Pulse Rate 63 69 68 Pulse Rate [ Apical] Respiratory 18 24 25 H Rate Blood Pressure O2 Sat by Pulse 96 97 98 Oximetry 07/16/17 07/16/17 07/16/17 01:31 01:40 01:44 Temperature Pulse Rate 65 67 67 Pulse Rate [ Apical] Respiratory 24 22 Rate Blood Pressure 158/101 H 158/101 H O2 Sat by Pulse 96 96 Oximetry 07/16/17 07/16/17 07/16/17 01:50 03:00 03:10 Temperature Pulse Rate 68 70 64 Pulse Rate [ Apical] Respiratory 41 H 23 23 Rate Blood Pressure 143/94 H O2 Sat by Pulse 95 99 96 Oximetry 07/16/17 07/16/17 07/16/17 03:20 03:30 03:40 Temperature Pulse Rate 69 82 65 Pulse Rate [ Apical] Respiratory 25 H 21 Rate Blood Pressure 172/120 H O2 Sat by Pulse 98 95 98 Oximetry 07/16/17 07/16/17 07/16/17 03:50 04:00 04:10 Temperature 97.8 F Pulse Rate 69 70 70 Pulse Rate [ Apical] Respiratory 22 22 26 H Rate Blood Pressure 201/75 H O2 Sat by Pulse 99 95 99 Oximetry 07/16/17 07/16/17 07/16/17 04:20 04:30 04:40 Temperature Pulse Rate 65 70 72 Pulse Rate [ Apical] Respiratory 16 17 10 L Rate Blood Pressure O2 Sat by Pulse 97 97 99 Oximetry 07/16/17 07/16/17 07/16/17 04:43 04:50 05:00 Temperature Pulse Rate 76 69 74 Pulse Rate [ Apical] Respiratory 23 23 Rate Blood Pressure 147/93 H 150/88 O2 Sat by Pulse 96 99 98 Oximetry 07/16/17 07/16/17 07/16/17 05:10 05:16 05:20 Temperature Pulse Rate 73 64 78 Pulse Rate [ Apical] Respiratory 28 H Rate Blood Pressure 201/75 H O2 Sat by Pulse 99 97 Oximetry 07/16/17 07/16/17 07/16/17 05:30 05:40 05:50 Temperature Pulse Rate 74 75 73 Pulse Rate [ Apical] Respiratory 19 20 19 Rate Blood Pressure 161/93 H O2 Sat by Pulse 94 L 93 L 94 L Oximetry 07/16/17 07/16/17 07/16/17 06:00 06:10 06:20 Temperature Pulse Rate 74 83 71 Pulse Rate [ Apical] Respiratory 23 39 H 19 Rate Blood Pressure 152/96 H O2 Sat by Pulse 96 96 96 Oximetry 07/16/17 07/16/17 07/16/17 06:30 06:40 06:50 Temperature Pulse Rate 71 71 70 Pulse Rate [ Apical] Respiratory 18 20 18 Rate Blood Pressure 153/92 H O2 Sat by Pulse 94 L 99 95 Oximetry 07/16/17 07/16/17 07/16/17 07:00 07:10 07:20 Temperature Pulse Rate 71 70 64 Pulse Rate [ Apical] Respiratory 21 29 H 20 Rate Blood Pressure 156/90 H O2 Sat by Pulse 97 96 99 Oximetry 07/16/17 07/16/17 07/16/17 07:30 07:40 07:50 Temperature Pulse Rate 65 63 63 Pulse Rate [ Apical] Respiratory 26 H 24 Rate Blood Pressure 141/73 O2 Sat by Pulse 95 94 L 93 L Oximetry 07/16/17 07/16/17 07/16/17 08:00 08:10 08:20 Temperature 98.9 F Pulse Rate 62 65 65 Pulse Rate [ Apical] Respiratory 15 19 19 Rate Blood Pressure 132/76 O2 Sat by Pulse 96 95 94 L Oximetry 07/16/17 07/16/17 07/16/17 08:23 08:30 08:40 Temperature Pulse Rate 64 64 60 Pulse Rate [ Apical] Respiratory 65 H 18 Rate Blood Pressure 156/90 H 148/86 O2 Sat by Pulse 96 94 L Oximetry 07/16/17 07/16/17 07/16/17 08:50 09:00 09:10 Temperature Pulse Rate 63 64 65 Pulse Rate [ Apical] Respiratory 16 27 H 24 Rate Blood Pressure 135/78 O2 Sat by Pulse 95 94 L 96 Oximetry 07/16/17 07/16/17 07/16/17 09:20 09:30 09:40 Temperature Pulse Rate 69 65 65 Pulse Rate [ Apical] Respiratory 44 H 17 Rate Blood Pressure 117/46 L O2 Sat by Pulse 96 97 97 Oximetry 07/16/17 07/16/17 07/16/17 09:50 09:53 10:00 Temperature Pulse Rate 75 71 68 Pulse Rate [ Apical] Respiratory 18 26 H 23 Rate Blood Pressure 146/109 H 149/107 H O2 Sat by Pulse 95 92 L 93 L Oximetry 07/16/17 07/16/17 07/16/17 10:03 10:04 10:05 Temperature Pulse Rate 66 Pulse Rate [ Apical] Respiratory Rate Blood Pressure 135/78 135/78 135/78 O2 Sat by Pulse Oximetry 07/16/17 07/16/17 07/16/17 10:10 10:20 10:30 Temperature Pulse Rate 69 70 66 Pulse Rate [ Apical] Respiratory 23 21 27 H Rate Blood Pressure 135/97 H O2 Sat by Pulse 91 L 92 L 93 L Oximetry 07/16/17 07/16/17 07/16/17 10:40 10:50 11:00 Temperature Pulse Rate 67 73 70 Pulse Rate [ Apical] Respiratory 37 H 26 H 53 H Rate Blood Pressure 140/90 O2 Sat by Pulse 92 L 91 L 94 L Oximetry 07/16/17 07/16/17 07/16/17 11:10 11:20 11:30 Temperature Pulse Rate 68 64 63 Pulse Rate [ Apical] Respiratory 23 29 H 24 Rate Blood Pressure 129/91 H O2 Sat by Pulse 93 L 96 94 L Oximetry 07/16/17 07/16/17 07/16/17 11:40 11:50 12:00 Temperature Pulse Rate 64 60 65 Pulse Rate [ Apical] Respiratory 25 H 45 H 27 H Rate Blood Pressure 156/102 H O2 Sat by Pulse 94 L 95 94 L Oximetry 07/16/17 07/16/17 07/16/17 12:10 12:20 12:30 Temperature Pulse Rate 64 61 63 Pulse Rate [ Apical] Respiratory 17 25 H Rate Blood Pressure 144/67 O2 Sat by Pulse 96 96 96 Oximetry 07/16/17 07/16/17 07/16/17 12:40 12:50 13:00 Temperature Pulse Rate 63 61 71 Pulse Rate [ Apical] Respiratory 20 23 19 Rate Blood Pressure 144/93 H O2 Sat by Pulse 95 95 95 Oximetry 07/16/17 07/16/17 07/16/17 13:10 14:00 14:06 Temperature Pulse Rate 63 68 68 Pulse Rate [ Apical] Respiratory 29 H Rate Blood Pressure 144/93 H O2 Sat by Pulse 97 Oximetry 07/16/17 07/16/17 07/16/17 16:00 17:10 18:00 Temperature 98.2 F Pulse Rate 63 68 Pulse Rate [ Apical] Respiratory Rate Blood Pressure 143/77 O2 Sat by Pulse Oximetry 07/16/17 07/16/17 07/16/17 20:00 20:30 21:00 Temperature 97.5 F L Pulse Rate 64 67 65 Pulse Rate [ Apical] Respiratory 23 26 H Rate Blood Pressure 129/72 130/77 140/93 H O2 Sat by Pulse 96 98 Oximetry 07/16/17 07/16/17 07/16/17 22:00 22:14 22:15 Temperature Pulse Rate 64 65 Pulse Rate [ Apical] Respiratory 13 Rate Blood Pressure 155/117 H 155/117 H 155/117 H O2 Sat by Pulse 98 Oximetry 07/16/17 07/16/17 07/17/17 22:16 23:00 00:00 Temperature 97.7 F Pulse Rate 68 72 Pulse Rate [ Apical] Respiratory 25 H 22 Rate Blood Pressure 155/117 H 134/80 144/88 O2 Sat by Pulse 98 98 Oximetry 07/17/17 07/17/17 07/17/17 00:59 01:00 01:32 Temperature Pulse Rate 63 65 67 Pulse Rate [ Apical] Respiratory 16 Rate Blood Pressure 137/96 H 150/91 H 153/100 H O2 Sat by Pulse 98 Oximetry 07/17/17 07/17/17 07/17/17 02:00 03:00 04:00 Temperature 97.3 F L Pulse Rate 68 71 68 Pulse Rate [ Apical] Respiratory 19 18 23 Rate Blood Pressure 153/91 H 144/81 138/77 O2 Sat by Pulse 95 97 96 Oximetry 07/17/17 07/17/17 07/17/17 05:00 06:00 07:00 Temperature Pulse Rate 63 62 60 Pulse Rate [ Apical] Respiratory 20 26 H Rate Blood Pressure 135/77 140/93 H O2 Sat by Pulse Oximetry 07/17/17 07/17/17 07/17/17 08:00 08:04 08:54 Temperature 98.4 F Pulse Rate 60 63 61 Pulse Rate [ Apical] Respiratory 17 22 Rate Blood Pressure 136/95 H 136/95 H O2 Sat by Pulse 96 Oximetry 07/17/17 07/17/17 07/17/17 08:55 08:56 08:57 Temperature Pulse Rate 60 62 62 Pulse Rate [ Apical] Respiratory 15 19 15 Rate Blood Pressure O2 Sat by Pulse Oximetry 07/17/17 07/17/17 07/17/17 08:58 08:59 09:00 Temperature Pulse Rate 63 60 Pulse Rate [ Apical] Respiratory 15 Rate Blood Pressure 130/74 O2 Sat by Pulse Oximetry 07/17/17 07/17/17 07/17/17 09:01 09:02 09:03 Temperature Pulse Rate 62 58 L 60 Pulse Rate [ Apical] Respiratory 26 H 23 18 Rate Blood Pressure O2 Sat by Pulse Oximetry 07/17/17 07/17/17 07/17/17 09:04 09:05 09:06 Temperature Pulse Rate 61 58 L 61 Pulse Rate [ Apical] Respiratory 24 17 21 Rate Blood Pressure O2 Sat by Pulse Oximetry 07/17/17 07/17/17 07/17/17 09:07 09:08 09:09 Temperature Pulse Rate 60 59 L 60 Pulse Rate [ Apical] Respiratory 14 21 Rate Blood Pressure O2 Sat by Pulse Oximetry 07/17/17 07/17/17 07/17/17 09:10 09:11 09:12 Temperature Pulse Rate 61 58 L 62 Pulse Rate [ Apical] Respiratory 24 15 Rate Blood Pressure 126/66 O2 Sat by Pulse Oximetry 07/17/17 07/17/17 07/17/17 09:13 09:14 09:15 Temperature Pulse Rate 59 L 60 63 Pulse Rate [ Apical] Respiratory 24 16 25 H Rate Blood Pressure O2 Sat by Pulse Oximetry 07/17/17 07/17/17 07/17/17 09:16 09:17 09:18 Temperature Pulse Rate 64 61 61 Pulse Rate [ Apical] Respiratory 23 Rate Blood Pressure O2 Sat by Pulse Oximetry 07/17/17 07/17/17 07/17/17 09:19 09:20 09:21 Temperature Pulse Rate 63 63 64 Pulse Rate [ Apical] Respiratory 23 31 H 30 H Rate Blood Pressure 126/66 O2 Sat by Pulse Oximetry 07/17/17 07/17/17 07/17/17 09:22 09:23 09:24 Temperature Pulse Rate 65 66 68 Pulse Rate [ Apical] Respiratory 13 23 19 Rate Blood Pressure 126/66 O2 Sat by Pulse Oximetry 07/17/17 07/17/17 07/17/17 09:25 09:26 09:27 Temperature Pulse Rate 64 62 65 Pulse Rate [ Apical] Respiratory 35 H 26 H 21 Rate Blood Pressure O2 Sat by Pulse Oximetry 07/17/17 07/17/17 07/17/17 09:28 09:29 09:30 Temperature Pulse Rate 61 61 62 Pulse Rate [ Apical] Respiratory 24 17 23 Rate Blood Pressure O2 Sat by Pulse Oximetry 07/17/17 07/17/17 07/17/17 09:31 09:32 09:33 Temperature Pulse Rate 62 61 Pulse Rate [ Apical] Respiratory 13 22 Rate Blood Pressure 137/103 H O2 Sat by Pulse Oximetry 07/17/17 07/17/17 07/17/17 09:34 10:31 10:35 Temperature Pulse Rate 62 73 67 Pulse Rate [ Apical] Respiratory 21 21 19 Rate Blood Pressure 152/86 H O2 Sat by Pulse 98 91 L Oximetry 07/17/17 07/17/17 07/17/17 10:40 10:50 11:00 Temperature Pulse Rate 68 61 58 L Pulse Rate [ Apical] Respiratory 40 H 19 Rate Blood Pressure 152/98 H O2 Sat by Pulse 93 L 97 95 Oximetry 07/17/17 07/17/17 07/17/17 11:10 12:00 18:00 Temperature 97.9 F 97.6 F Pulse Rate 58 L 58 L 57 L Pulse Rate [ Apical] Respiratory 22 20 Rate Blood Pressure 153/109 H O2 Sat by Pulse 96 Oximetry 07/17/17 07/17/17 07/17/17 18:22 21:13 22:00 Temperature Pulse Rate 58 L 66 Pulse Rate [ Apical] Respiratory Rate Blood Pressure 153/109 H 154/99 H O2 Sat by Pulse Oximetry 07/17/17 07/17/17 07/18/17 23:34 23:55 01:52 Temperature 98.1 F Pulse Rate 65 66 68 Pulse Rate [ Apical] Respiratory 20 Rate Blood Pressure 158/99 H 158/99 H O2 Sat by Pulse 96 Oximetry 07/18/17 07/18/17 02:15 05:55 Temperature 97.4 F L Pulse Rate 62 83 Pulse Rate [ Apical] Respiratory 18 Rate Blood Pressure 135/87 147/87 O2 Sat by Pulse 98 Oximetry Intake and Output: 07/18/17 07/18/17 06:59 18:59 Intake Total 480 Output Total 400 Balance 80 - Medications Medications: Current Medications Acetaminophen (Tylenol 325mg Tab) 650 mg PO Q6H PRN PRN Reason: Headache Last Admin: 07/18/17 02:16 Dose: 650 mg Amlodipine Besylate (Norvasc) 10 mg PO DAILY [facility] Last Admin: 07/17/17 09:45 Dose: Not Given Aspirin (Aspirin Chewable) 81 mg PO DAILY [facility] Last Admin: 07/17/17 09:21 Dose: 81 mg Atorvastatin Calcium (Lipitor) 10 mg PO DIN [facility] Last Admin: 07/17/17 18:21 Dose: 10 mg Calcium Acetate (Phoslo) 667 mg PO WM [facility] Last Admin: 07/17/17 18:21 Dose: 667 mg Clonidine HCl (Catapres) 0.1 mg PO Q8H [facility] Last Admin: 07/17/17 23:34 Dose: 0.1 mg Folic Acid (Folic Acid) 1 mg PO DAILY [facility] Last Admin: 07/17/17 12:05 Dose: 1 mg Heparin Sodium (Porcine) (Heparin) 5,000 units SC Q8 [facility] PRN Reason: Protocol Last Admin: 07/18/17 05:11 Dose: 5,000 units Hydralazine HCl (Apresoline) 10 mg IVP Q6 PRN PRN Reason: SBP > 150 Last Admin: 07/16/17 22:14 Dose: 10 mg Hydralazine HCl (Apresoline) 25 mg PO Q8H [facility] Azithromycin (Zithromax 500mg In Ns) 500 mg in 250 mls @ 167 mls/hr IVPB DAILY [facility] PRN Reason: Protocol Last Admin: 07/17/17 11:49 Dose: 167 mls/hr Ceftriaxone Sodium (Rocephin 1 Gram Ivpb) 1 gm in 100 mls @ 100 mls/hr IVPB DAILY [facility] PRN Reason: Protocol Ondansetron HCl (Zofran Inj) 4 mg IVP Q6H PRN PRN Reason: Nausea/Vomiting Pantoprazole Sodium (Protonix Ec Tab) 40 mg PO 1800 [facility] Last Admin: 07/17/17 18:21 Dose: 40 mg Thiamine HCl (Vitamin B1 Inj) 100 mg IV DAILY [facility] Last Admin: 07/17/17 09:22 Dose: 100 mg - Labs Labs: 07/18/17 06:00 07/18/17 06:00 PT 12.2 SECONDS (9.4-12.5) 07/17/17 05:16 INR 1.06 (0.93-1.08) 07/17/17 05:16 APTT 35.1 Seconds (25.1-36.5) 07/17/17 05:16 Laboratory Results - last 72 hr 07/15/17 07/15/17 07/15/17 10:20 10:20 10:20 WBC 7.0 RBC 3.93 Hgb 12.4 L Hct 36.3 L MCV 92.4 MCH 31.6 MCHC 34.2 RDW 15.1 H Plt Count 327 MPV 11.0 Gran % 67.5 Lymph % (Auto) 18.3 L [place] % (Auto) 8.7 H Eos % (Auto) 5.1 H Baso % (Auto) 0.4 Gran # 4.72 Lymph # (Auto) 1.3 [place] # (Auto) 0.6 Eos # (Auto) 0.4 Baso # (Auto) 0.03 PT 12.1 INR 1.05 APTT 30.6 pO2 VBG pH VBG pCO2 VBG HCO3 VBG Total CO2 VBG O2 Sat (Calc) VBG Base Excess VBG Potassium Sodium Chloride Glucose Lactate FiO2 Potassium Carbon Dioxide Anion Gap BUN Creatinine Est GFR ( Amer) Est GFR (Non-Af Amer) Random Glucose Serum Osmolality Calcium Phosphorus Magnesium Iron TIBC % Saturation Ferritin Total Bilirubin AST ALT Alkaline Phosphatase Lactate Dehydrogenase Total Creatine Kinase Troponin I NT-Pro-B Natriuret Pep Total Protein Total Protein (PEP) Albumin Globulin Albumin/Globulin Ratio Triglycerides Cholesterol LDL Cholesterol Direct HDL Cholesterol TSH 3rd Generation Venous Blood Potassium Urine Color Urine Appearance Urine pH Ur Specific [place] Urine Protein Urine Glucose (UA) Urine Ketones Urine Blood Urine Nitrate Urine Bilirubin Urine Urobilinogen Ur Leukocyte Esterase Urine RBC Urine WBC Ur Epithelial Cells Urine Bacteria Urine Osmolality Ur Random Creatinine U Random Total Protein Ur Random Sodium Ur Random Potassium Urine Microalbumin Urine Opiates Screen Urine Methadone Screen Ur Barbiturates Screen Ur Phencyclidine Scrn Ur Amphetamines Screen U Benzodiazepines Scrn U Oth Cocaine Metabols U Cannabinoids Screen Alcohol, Quantitative Proteinase 3 (PR3) Myeloperoxidase Ab Complement C3 Complement C4 RPR Hepatitis A IgM Ab Hep Bs Antigen Hep B Core IgM Ab Hepatitis C Antibody Influenza Typ A,B (EIA) Negative for flu a/b 07/15/17 07/15/17 07/15/17 11:29 11:29 11:30 WBC RBC Hgb Hct MCV MCH MCHC RDW Plt Count MPV Gran % Lymph % (Auto) [place] % (Auto) Eos % (Auto) Baso % (Auto) Gran # Lymph # (Auto) [place] # (Auto) Eos # (Auto) Baso # (Auto) PT INR APTT pO2 37 VBG pH 7.30 L VBG pCO2 39.0 L VBG HCO3 19.2 L VBG Total CO2 20.4 L VBG O2 Sat (Calc) 71.4 H VBG Base Excess -6.7 L VBG Potassium 4.7 Sodium 140 138.0 Chloride 108 H 109.0 H Glucose 107 Lactate 1.7 FiO2 21.0 Potassium 4.7 Carbon Dioxide 19 L Anion Gap 17 BUN 52 H Creatinine 7.6 H* Est GFR ( Amer) 9 Est GFR (Non-Af Amer) 8 Random Glucose 108 Serum Osmolality Calcium 10.0 Phosphorus Magnesium Iron TIBC % Saturation Ferritin Total Bilirubin 0.5 AST 28 ALT 29 Alkaline Phosphatase 131 H Lactate Dehydrogenase 525 Total Creatine Kinase 182 Troponin I 0.10 NT-Pro-B Natriuret Pep > 50277 H Total Protein 7.4 Total Protein (PEP) Albumin 3.6 Globulin 3.8 Albumin/Globulin Ratio 1.0 L Triglycerides Cholesterol LDL Cholesterol Direct HDL Cholesterol TSH 3rd Generation 2.08 Venous Blood Potassium 4.7 Urine Color Urine Appearance Urine pH Ur Specific [place] Urine Protein Urine Glucose (UA) Urine Ketones Urine Blood Urine Nitrate Urine Bilirubin Urine Urobilinogen Ur Leukocyte Esterase Urine RBC Urine WBC Ur Epithelial Cells Urine Bacteria Urine Osmolality Ur Random Creatinine U Random Total Protein Ur Random Sodium Ur Random Potassium Urine Microalbumin Urine Opiates Screen Urine Methadone Screen Ur Barbiturates Screen Ur Phencyclidine Scrn Ur Amphetamines Screen U Benzodiazepines Scrn U Oth Cocaine Metabols U Cannabinoids Screen Alcohol, Quantitative Proteinase 3 (PR3) Myeloperoxidase Ab Complement C3 Complement C4 RPR Hepatitis A IgM Ab Hep Bs Antigen Hep B Core IgM Ab Hepatitis C Antibody Influenza Typ A,B (EIA) 07/15/17 07/15/17 07/15/17 14:14 14:15 15:30 WBC RBC Hgb Hct MCV MCH MCHC RDW Plt Count MPV Gran % Lymph % (Auto) [place] % (Auto) Eos % (Auto) Baso % (Auto) Gran # Lymph # (Auto) [place] # (Auto) Eos # (Auto) Baso # (Auto) PT INR APTT pO2 VBG pH VBG pCO2 VBG HCO3 VBG Total CO2 VBG O2 Sat (Calc) VBG Base Excess VBG Potassium Sodium Chloride Glucose Lactate FiO2 Potassium Carbon Dioxide Anion Gap BUN Creatinine Est GFR ( Amer) Est GFR (Non-Af Amer) Random Glucose Serum Osmolality 317 H Calcium Phosphorus Magnesium Iron TIBC % Saturation Ferritin Total Bilirubin AST ALT Alkaline Phosphatase Lactate Dehydrogenase Total Creatine Kinase Troponin I NT-Pro-B Natriuret Pep Total Protein Total Protein (PEP) Albumin Globulin Albumin/Globulin Ratio Triglycerides Cholesterol LDL Cholesterol Direct HDL Cholesterol TSH 3rd Generation Venous Blood Potassium Urine Color Yellow Urine Appearance Clear Urine pH 6.0 Ur Specific [place] 1.020 Urine Protein 100 H Urine Glucose (UA) Negative Urine Ketones Negative Urine Blood Small H Urine Nitrate Negative Urine Bilirubin Negative Urine Urobilinogen 0.2 Ur Leukocyte Esterase Moderate H Urine RBC 0 - 2 Urine WBC 10 - 15 Ur Epithelial Cells 0 - 2 Urine Bacteria Few Urine Osmolality Ur Random Creatinine U Random Total Protein 178 Ur Random Sodium Ur Random Potassium Urine Microalbumin Urine Opiates Screen Urine Methadone Screen Ur Barbiturates Screen Ur Phencyclidine Scrn Ur Amphetamines Screen U Benzodiazepines Scrn U Oth Cocaine Metabols U Cannabinoids Screen Alcohol, Quantitative < 10 Proteinase 3 (PR3) Myeloperoxidase Ab Complement C3 Complement C4 RPR Hepatitis A IgM Ab Hep Bs Antigen Hep B Core IgM Ab Hepatitis C Antibody Influenza Typ A,B (EIA) 07/15/17 07/15/17 07/15/17 17:12 17:12 17:12 WBC RBC Hgb Hct MCV MCH MCHC RDW Plt Count MPV Gran % Lymph % (Auto) [place] % (Auto) Eos % (Auto) Baso % (Auto) Gran # Lymph # (Auto) [place] # (Auto) Eos # (Auto) Baso # (Auto) PT INR APTT pO2 VBG pH VBG pCO2 VBG HCO3 VBG Total CO2 VBG O2 Sat (Calc) VBG Base Excess VBG Potassium Sodium Chloride Glucose Lactate FiO2 Potassium Carbon Dioxide Anion Gap BUN Creatinine Est GFR ( Amer) Est GFR (Non-Af Amer) Random Glucose Serum Osmolality Calcium Phosphorus Magnesium Iron TIBC % Saturation Ferritin Total Bilirubin AST ALT Alkaline Phosphatase Lactate Dehydrogenase Total Creatine Kinase Troponin I NT-Pro-B Natriuret Pep Total Protein Total Protein (PEP) Albumin Globulin Albumin/Globulin Ratio Triglycerides Cholesterol LDL Cholesterol Direct HDL Cholesterol TSH 3rd Generation Venous Blood Potassium Urine Color Urine Appearance Urine pH Ur Specific [place] Urine Protein Urine Glucose (UA) Urine Ketones Urine Blood Urine Nitrate Urine Bilirubin Urine Urobilinogen Ur Leukocyte Esterase Urine RBC Urine WBC Ur Epithelial Cells Urine Bacteria Urine Osmolality 289 L Ur Random Creatinine 30 U Random Total Protein Ur Random Sodium 116 Ur Random Potassium 13.0 Urine Microalbumin Urine Opiates Screen Negative Urine Methadone Screen Negative Ur Barbiturates Screen Negative Ur Phencyclidine Scrn Negative Ur Amphetamines Screen Negative U Benzodiazepines Scrn Negative U Oth Cocaine Metabols Positive H U Cannabinoids Screen Negative Alcohol, Quantitative Proteinase 3 (PR3) Myeloperoxidase Ab Complement C3 Complement C4 RPR Hepatitis A IgM Ab Hep Bs Antigen Hep B Core IgM Ab Hepatitis C Antibody Influenza Typ A,B (EIA) 07/15/17 07/15/17 07/15/17 19:50 19:50 19:50 WBC RBC Hgb Hct MCV MCH MCHC RDW Plt Count MPV Gran % Lymph % (Auto) [place] % (Auto) Eos % (Auto) Baso % (Auto) Gran # Lymph # (Auto) [place] # (Auto) Eos # (Auto) Baso # (Auto) PT INR APTT pO2 VBG pH VBG pCO2 VBG HCO3 VBG Total CO2 VBG O2 Sat (Calc) VBG Base Excess VBG Potassium Sodium Chloride Glucose Lactate FiO2 Potassium Carbon Dioxide Anion Gap BUN Creatinine Est GFR ( Amer) Est GFR (Non-Af Amer) Random Glucose Serum Osmolality Calcium Phosphorus Magnesium Iron TIBC % Saturation Ferritin Total Bilirubin AST ALT Alkaline Phosphatase Lactate Dehydrogenase Total Creatine Kinase Troponin I 0.11 NT-Pro-B Natriuret Pep Total Protein Total Protein (PEP) Albumin Globulin Albumin/Globulin Ratio Triglycerides Cholesterol LDL Cholesterol Direct HDL Cholesterol TSH 3rd Generation Venous Blood Potassium Urine Color Urine Appearance Urine pH Ur Specific [place] Urine Protein Urine Glucose (UA) Urine Ketones Urine Blood Urine Nitrate Urine Bilirubin Urine Urobilinogen Ur Leukocyte Esterase Urine RBC Urine WBC Ur Epithelial Cells Urine Bacteria Urine Osmolality Ur Random Creatinine U Random Total Protein Ur Random Sodium Ur Random Potassium Urine Microalbumin Urine Opiates Screen Urine Methadone Screen Ur Barbiturates Screen Ur Phencyclidine Scrn Ur Amphetamines Screen U Benzodiazepines Scrn U Oth Cocaine Metabols U Cannabinoids Screen Alcohol, Quantitative Proteinase 3 (PR3) Myeloperoxidase Ab Complement C3 Complement C4 RPR Nonreactive Hepatitis A IgM Ab Negative Hep Bs Antigen Negative Hep B Core IgM Ab Negative Hepatitis C Antibody Negative Influenza Typ A,B (EIA) 07/16/17 07/16/17 07/16/17 05:00 05:00 05:00 WBC 7.2 RBC 3.73 Hgb 11.5 L Hct 33.9 L MCV 90.9 MCH 30.8 MCHC 33.9 RDW 14.6 H Plt Count 293 MPV 10.6 Gran % 71.8 H Lymph % (Auto) 16.1 L [place] % (Auto) 7.1 H Eos % (Auto) 4.7 Baso % (Auto) 0.3 Gran # 5.18 Lymph # (Auto) 1.2 [place] # (Auto) 0.5 Eos # (Auto) 0.3 Baso # (Auto) 0.02 PT 12.4 INR 1.08 APTT 32.0 pO2 VBG pH VBG pCO2 VBG HCO3 VBG Total CO2 VBG O2 Sat (Calc) VBG Base Excess VBG Potassium Sodium 142 Chloride 108 H Glucose Lactate FiO2 Potassium 4.0 Carbon Dioxide 22 Anion Gap 17 BUN 53 H Creatinine 7.4 H* Est GFR ( Amer) 10 Est GFR (Non-Af Amer) 8 Random Glucose 96 Serum Osmolality Calcium 10.1 Phosphorus 5.4 H Magnesium 1.7 Iron TIBC % Saturation Ferritin Total Bilirubin 0.6 AST 29 ALT 27 Alkaline Phosphatase 126 Lactate Dehydrogenase Total Creatine Kinase Troponin I 0.10 NT-Pro-B Natriuret Pep Total Protein 7.2 Total Protein (PEP) Albumin 3.6 Globulin 3.6 Albumin/Globulin Ratio 1.0 L Triglycerides 98 Cholesterol 160 LDL Cholesterol Direct 61 HDL Cholesterol 55 TSH 3rd Generation Venous Blood Potassium Urine Color Urine Appearance Urine pH Ur Specific [place] Urine Protein Urine Glucose (UA) Urine Ketones Urine Blood Urine Nitrate Urine Bilirubin Urine Urobilinogen Ur Leukocyte Esterase Urine RBC Urine WBC Ur Epithelial Cells Urine Bacteria Urine Osmolality Ur Random Creatinine U Random Total Protein Ur Random Sodium Ur Random Potassium Urine Microalbumin Urine Opiates Screen Urine Methadone Screen Ur Barbiturates Screen Ur Phencyclidine Scrn Ur Amphetamines Screen U Benzodiazepines Scrn U Oth Cocaine Metabols U Cannabinoids Screen Alcohol, Quantitative Proteinase 3 (PR3) Myeloperoxidase Ab Complement C3 Complement C4 RPR Hepatitis A IgM Ab Hep Bs Antigen Hep B Core IgM Ab Hepatitis C Antibody Influenza Typ A,B (EIA) 07/16/17 07/16/17 07/16/17 05:00 05:00 05:00 WBC RBC Hgb Hct MCV MCH MCHC RDW Plt Count MPV Gran % Lymph % (Auto) [place] % (Auto) Eos % (Auto) Baso % (Auto) Gran # Lymph # (Auto) [place] # (Auto) Eos # (Auto) Baso # (Auto) PT INR APTT pO2 VBG pH VBG pCO2 VBG HCO3 VBG Total CO2 VBG O2 Sat (Calc) VBG Base Excess VBG Potassium Sodium Chloride Glucose Lactate FiO2 Potassium Carbon Dioxide Anion Gap BUN Creatinine Est GFR ( Amer) Est GFR (Non-Af Amer) Random Glucose Serum Osmolality Calcium Phosphorus Magnesium Iron TIBC % Saturation Ferritin Total Bilirubin AST ALT Alkaline Phosphatase Lactate Dehydrogenase Total Creatine Kinase Troponin I NT-Pro-B Natriuret Pep Total Protein Total Protein (PEP) 7.5 Albumin Globulin Albumin/Globulin Ratio Triglycerides Cholesterol LDL Cholesterol Direct HDL Cholesterol TSH 3rd Generation Venous Blood Potassium Urine Color Urine Appearance Urine pH Ur Specific [place] Urine Protein Urine Glucose (UA) Urine Ketones Urine Blood Urine Nitrate Urine Bilirubin Urine Urobilinogen Ur Leukocyte Esterase Urine RBC Urine WBC Ur Epithelial Cells Urine Bacteria Urine Osmolality Ur Random Creatinine U Random Total Protein Ur Random Sodium Ur Random Potassium Urine Microalbumin Urine Opiates Screen Urine Methadone Screen Ur Barbiturates Screen Ur Phencyclidine Scrn Ur Amphetamines Screen U Benzodiazepines Scrn U Oth Cocaine Metabols U Cannabinoids Screen Alcohol, Quantitative Proteinase 3 (PR3) <1.0 Myeloperoxidase Ab <1.0 Complement C3 138.0 Complement C4 64.8 H RPR Hepatitis A IgM Ab Hep Bs Antigen Hep B Core IgM Ab Hepatitis C Antibody Influenza Typ A,B (EIA) 07/16/17 07/16/17 07/17/17 05:00 05:00 01:02 WBC RBC Hgb Hct MCV MCH MCHC RDW Plt Count MPV Gran % Lymph % (Auto) Imperial % (Auto) Eos % (Auto) Baso % (Auto) Gran # Lymph # (Auto) [place] # (Auto) Eos # (Auto) Baso # (Auto) PT INR APTT pO2 VBG pH VBG pCO2 VBG HCO3 VBG Total CO2 VBG O2 Sat (Calc) VBG Base Excess VBG Potassium Sodium Chloride Glucose Lactate FiO2 Potassium Carbon Dioxide Anion Gap BUN Creatinine Est GFR ( Amer) Est GFR (Non-Af Amer) Random Glucose Serum Osmolality Calcium Phosphorus Magnesium Iron TIBC % Saturation Ferritin Total Bilirubin AST ALT Alkaline Phosphatase Lactate Dehydrogenase Total Creatine Kinase Troponin I NT-Pro-B Natriuret Pep Total Protein Total Protein (PEP) Albumin Globulin Albumin/Globulin Ratio Triglycerides Cholesterol LDL Cholesterol Direct HDL Cholesterol TSH 3rd Generation Venous Blood Potassium Urine Color Urine Appearance Urine pH Ur Specific [place] Urine Protein Urine Glucose (UA) Urine Ketones Urine Blood Urine Nitrate Urine Bilirubin Urine Urobilinogen Ur Leukocyte Esterase Urine RBC Urine WBC Ur Epithelial Cells Urine Bacteria Urine Osmolality Ur Random Creatinine 27 28 U Random Total Protein 34 Ur Random Sodium Ur Random Potassium Urine Microalbumin 114.5 H Urine Opiates Screen Urine Methadone Screen Ur Barbiturates Screen Ur Phencyclidine Scrn Ur Amphetamines Screen U Benzodiazepines Scrn U Oth Cocaine Metabols U Cannabinoids Screen Alcohol, Quantitative Proteinase 3 (PR3) Myeloperoxidase Ab Complement C3 Complement C4 RPR Hepatitis A IgM Ab Hep Bs Antigen Hep B Core IgM Ab Hepatitis C Antibody Influenza Typ A,B (EIA) 07/17/17 07/17/17 07/17/17 05:16 05:16 05:16 WBC 6.1 RBC 3.91 Hgb 12.2 L Hct 35.6 L MCV 91.0 MCH 31.2 MCHC 34.3 RDW 14.9 H Plt Count 301 MPV 10.6 Gran % 58.0 Lymph % (Auto) 24.4 Imperial % (Auto) 10.2 H Eos % (Auto) 6.9 H Baso % (Auto) 0.5 Gran # 3.52 Lymph # (Auto) 1.5 Imperial # (Auto) 0.6 Eos # (Auto) 0.4 Baso # (Auto) 0.03 PT 12.2 INR 1.06 APTT 35.1 pO2 VBG pH VBG pCO2 VBG HCO3 VBG Total CO2 VBG O2 Sat (Calc) VBG Base Excess VBG Potassium Sodium 142 Chloride 105 Glucose Lactate FiO2 Potassium 3.8 Carbon Dioxide 25 Anion Gap 16 BUN 56 H Creatinine 7.9 H* Est GFR ( Amer) 9 Est GFR (Non-Af Amer) 7 Random Glucose 109 Serum Osmolality Calcium 10.3 Phosphorus 5.1 H Magnesium 1.7 Iron TIBC % Saturation Ferritin 55.3 Total Bilirubin 0.4 AST 24 ALT 24 Alkaline Phosphatase 112 Lactate Dehydrogenase Total Creatine Kinase Troponin I NT-Pro-B Natriuret Pep Total Protein 7.5 Total Protein (PEP) Albumin 3.7 Globulin 3.8 Albumin/Globulin Ratio 1.0 L Triglycerides Cholesterol LDL Cholesterol Direct HDL Cholesterol TSH 3rd Generation Venous Blood Potassium Urine Color Urine Appearance Urine pH Ur Specific [place] Urine Protein Urine Glucose (UA) Urine Ketones Urine Blood Urine Nitrate Urine Bilirubin Urine Urobilinogen Ur Leukocyte Esterase Urine RBC Urine WBC Ur Epithelial Cells Urine Bacteria Urine Osmolality Ur Random Creatinine U Random Total Protein Ur Random Sodium Ur Random Potassium Urine Microalbumin Urine Opiates Screen Urine Methadone Screen Ur Barbiturates Screen Ur Phencyclidine Scrn Ur Amphetamines Screen U Benzodiazepines Scrn U Oth Cocaine Metabols U Cannabinoids Screen Alcohol, Quantitative Proteinase 3 (PR3) Myeloperoxidase Ab Complement C3 Complement C4 RPR Hepatitis A IgM Ab Hep Bs Antigen Hep B Core IgM Ab Hepatitis C Antibody Influenza Typ A,B (EIA) 07/17/17 07/18/17 07/18/17 05:16 06:00 06:00 WBC 6.2 RBC 3.80 Hgb 11.7 L Hct 34.6 L MCV 91.1 MCH 30.8 MCHC 33.8 RDW 14.8 H Plt Count 250 MPV 10.3 Gran % Lymph % (Auto) [place] % (Auto) Eos % (Auto) Baso % (Auto) Gran # Lymph # (Auto) [place] # (Auto) Eos # (Auto) Baso # (Auto) PT INR APTT pO2 VBG pH VBG pCO2 VBG HCO3 VBG Total CO2 VBG O2 Sat (Calc) VBG Base Excess VBG Potassium Sodium 139 Chloride 104 Glucose Lactate FiO2 Potassium 3.6 Carbon Dioxide 24 Anion Gap 15 BUN 42 H Creatinine 6.5 H Est GFR ( Amer) 11 Est GFR (Non-Af Amer) 9 Random Glucose 103 Serum Osmolality Calcium 9.8 Phosphorus 4.4 Magnesium 1.6 L Iron 21 L TIBC 283 % Saturation 8 L Ferritin Total Bilirubin AST ALT Alkaline Phosphatase Lactate Dehydrogenase Total Creatine Kinase Troponin I NT-Pro-B Natriuret Pep Total Protein Total Protein (PEP) Albumin Globulin Albumin/Globulin Ratio Triglycerides Cholesterol LDL Cholesterol Direct HDL Cholesterol TSH 3rd Generation Venous Blood Potassium Urine Color Urine Appearance Urine pH Ur Specific [place] Urine Protein Urine Glucose (UA) Urine Ketones Urine Blood Urine Nitrate Urine Bilirubin Urine Urobilinogen Ur Leukocyte Esterase Urine RBC Urine WBC Ur Epithelial Cells Urine Bacteria Urine Osmolality Ur Random Creatinine U Random Total Protein Ur Random Sodium Ur Random Potassium Urine Microalbumin Urine Opiates Screen Urine Methadone Screen Ur Barbiturates Screen Ur Phencyclidine Scrn Ur Amphetamines Screen U Benzodiazepines Scrn U Oth Cocaine Metabols U Cannabinoids Screen Alcohol, Quantitative Proteinase 3 (PR3) Myeloperoxidase Ab Complement C3 Complement C4 RPR Hepatitis A IgM Ab Hep Bs Antigen Hep B Core IgM Ab Hepatitis C Antibody Influenza Typ A,B (EIA) - Constitutional Appears: Non-toxic, No Acute Distress - Eye Exam Eye Exam: absent: Scleral icterus - ENT Exam ENT Exam: Mucous Membranes Moist - Respiratory Exam Respiratory Exam: Clear to Ausculation Bilateral. absent: Respiratory Distress - Cardiovascular Exam Cardiovascular Exam: RRR, +S1, +S2 - GI/Abdominal Exam GI & Abdominal Exam: Soft. absent: Distended, Tenderness - Exam Exam: absent: Bladder Distension - Extremities Exam Additional comments: no leg edema - Neurological Exam Neurological Exam: Alert, Awake - Psychiatric Exam Psychiatric exam: Normal Affect, Normal Mood. absent: Agitated - Skin Skin Exam: Warm. absent: Cyanosis Assessment and Plan (1) Hypertensive emergency Assessment & Plan: BP improved; off nitro drip; decreasing clonidine to 0.1 mg q8h; will change lasix to PO torsemide 20 mg bid; continue hydralazine 50 mg q6h and amlodipine 10 mg daily for now; Status: Acute (2) CHF (congestive heart failure) Assessment & Plan: Symptomatically much improved; awaiting echo report; diuretic changes as above; Status: Acute (3) Metabolic acidosis Status: Acute (4) Proteinuria Assessment & Plan: ~400 mg/g by urine prot/creat ratio; workup for etiology thus far unrevealing; will f/u rest of workup Status: Acute (5) Pyuria Status: Acute - Assessment and Plan (Free Text) Assessment: ESRD on HD - Initiated on HD today with low blood flow to avoid dialysis dysequilibrium; tolerated well; targeted 500 cc net UF; HD for next 2 days using progressively higher blood flow; vascular surgery consulted for AVF creation, will aim to get procedure done within next 2 days; -avoid nephrotoxic insults to preserve residual renal function in a new ESRD patient; -avoiding drastic drops in BP for the same reason;
--- NOTE | 2017-07-18 07:40 | CP.PCM.PN ---
Subjective - Date & Time of Evaluation Date of Evaluation: 07/18/17 Time of Evaluation: 07:33 - Subjective Subjective: Surgery Progress Note: Patient seen and examined at bedside. No acute events overnight. Denies fever, chills, nausea, vomiting, confusion. Received dialysis yesterday. Objective - Vital Signs/Intake and Output Vital Signs (last 24 hours): Temp Pulse Resp BP Pulse Ox 97.4 F L 83 18 147/87 98 07/18/17 05:55 07/18/17 05:55 07/18/17 05:55 07/18/17 05:55 07/18/17 05:55 Intake and Output: 07/18/17 07/18/17 06:59 18:59 Intake Total 480 Output Total 400 Balance 80 - Medications Medications: Current Medications Acetaminophen (Tylenol 325mg Tab) 650 mg PO Q6H PRN PRN Reason: Headache Last Admin: 07/18/17 02:16 Dose: 650 mg Amlodipine Besylate (Norvasc) 10 mg PO DAILY [facility] Last Admin: 07/17/17 09:45 Dose: Not Given Aspirin (Aspirin Chewable) 81 mg PO DAILY [facility] Last Admin: 07/17/17 09:21 Dose: 81 mg Atorvastatin Calcium (Lipitor) 10 mg PO DIN [facility] Last Admin: 07/17/17 18:21 Dose: 10 mg Calcium Acetate (Phoslo) 667 mg PO WM [facility] Last Admin: 07/17/17 18:21 Dose: 667 mg Clonidine HCl (Catapres) 0.1 mg PO Q8H [facility] Last Admin: 07/17/17 23:34 Dose: 0.1 mg Folic Acid (Folic Acid) 1 mg PO DAILY [facility] Last Admin: 07/17/17 12:05 Dose: 1 mg Heparin Sodium (Porcine) (Heparin) 5,000 units SC Q8 [facility] PRN Reason: Protocol Last Admin: 07/18/17 05:11 Dose: 5,000 units Hydralazine HCl (Apresoline) 10 mg IVP Q6 PRN PRN Reason: SBP > 150 Last Admin: 07/16/17 22:14 Dose: 10 mg Hydralazine HCl (Apresoline) 25 mg PO Q8H [facility] Azithromycin (Zithromax 500mg In Ns) 500 mg in 250 mls @ 167 mls/hr IVPB DAILY [facility] PRN Reason: Protocol Last Admin: 07/17/17 11:49 Dose: 167 mls/hr Ceftriaxone Sodium (Rocephin 1 Gram Ivpb) 1 gm in 100 mls @ 100 mls/hr IVPB DAILY [facility] PRN Reason: Protocol Ondansetron HCl (Zofran Inj) 4 mg IVP Q6H PRN PRN Reason: Nausea/Vomiting Pantoprazole Sodium (Protonix Ec Tab) 40 mg PO 1800 [facility] Last Admin: 07/17/17 18:21 Dose: 40 mg Thiamine HCl (Vitamin B1 Inj) 100 mg IV DAILY [facility] Last Admin: 07/17/17 09:22 Dose: 100 mg - Labs Labs: 07/18/17 06:00 07/18/17 06:00 PT 12.2 SECONDS (9.4-12.5) 07/17/17 05:16 INR 1.06 (0.93-1.08) 07/17/17 05:16 APTT 35.1 Seconds (25.1-36.5) 07/17/17 05:16 - Constitutional Appears: Non-toxic, No Acute Distress - Head Exam Head Exam: ATRAUMATIC, NORMOCEPHALIC - Eye Exam Eye Exam: EOMI, PERRL. absent: Conjunctival injection, Nystagmus, Scleral icterus Pupil Exam: NORMAL ACCOMODATION, PERRL. absent: Fixed, Irregular, Unequal - ENT Exam ENT Exam: Mucous Membranes Moist - Neck Exam Neck Exam: Full ROM Additional comments: Right tunneled cath in place - Respiratory Exam Respiratory Exam: Clear to Ausculation Bilateral, NORMAL BREATHING PATTERN. absent: Accessory Muscle Use, Chest Wall Tenderness, Decreased Breath Sounds, Rales, Rhonchi, Wheezes, Stridor - Cardiovascular Exam Cardiovascular Exam: RRR, +S1, +S2. absent: Murmur - GI/Abdominal Exam GI & Abdominal Exam: Soft, Normal Bowel Sounds. absent: Distended, Firm, Tenderness, Mass, Organomegaly, Rebound - Extremities Exam Extremities Exam: Normal Inspection. absent: Calf Tenderness, Pedal Edema - Back Exam Back Exam: NORMAL INSPECTION - Neurological Exam Neurological Exam: Alert, Awake, Oriented x3 - Psychiatric Exam Psychiatric exam: Normal Affect, Normal Mood - Skin Skin Exam: Dry, Normal Color, Warm Assessment and Plan - Assessment and Plan (Free Text) Assessment: 52 year old male with a past medical history of HTN, CKD stage V, cocaine/ alcohol abuse, admitted for acute on chronic renal failure, HTN emergency, CHF. Vascular surgery consulted for creation of AV fistula: - GFR 9-10 this admission, BUN/Cr 52/7.6 - Follow up vein mapping results - OR on Monday, at 12 PM for AVF - Will hold heparin - Left arm precautions - NPO after midnight - Further recs as per Dr Tripp.
--- NOTE | 2017-07-18 08:08 | CP.PCM.PN ---
Subjective - Date & Time of Evaluation Date of Evaluation: 07/18/17 Time of Evaluation: 08:08 - Subjective Subjective: Juan Carlos Gonzalez DO, PGY-1: Hospitalist Service Patient seen and examined at bedside. Patient reports experiencing nausea and dypnea. Patient denies cough, fever, chills, or lower extremity swelling. Nurse reports no events overnight. Objective - Vital Signs/Intake and Output Vital Signs (last 24 hours): Temp Pulse Resp BP Pulse Ox 97.4 F L 83 18 147/87 98 07/18/17 05:55 07/18/17 05:55 07/18/17 05:55 07/18/17 05:55 07/18/17 05:55 Intake and Output: 07/18/17 07/18/17 06:59 18:59 Intake Total 480 Output Total 400 Balance 80 - Medications Medications: Current Medications Acetaminophen (Tylenol 325mg Tab) 650 mg PO Q6H PRN PRN Reason: Headache Last Admin: 07/18/17 02:16 Dose: 650 mg Amlodipine Besylate (Norvasc) 10 mg PO DAILY [facility] Last Admin: 07/17/17 09:45 Dose: Not Given Aspirin (Aspirin Chewable) 81 mg PO DAILY [facility] Last Admin: 07/17/17 09:21 Dose: 81 mg Atorvastatin Calcium (Lipitor) 10 mg PO DIN [facility] Last Admin: 07/17/17 18:21 Dose: 10 mg Calcium Acetate (Phoslo) 667 mg PO WM [facility] Last Admin: 07/17/17 18:21 Dose: 667 mg Clonidine HCl (Catapres) 0.1 mg PO Q8H [facility] Last Admin: 07/17/17 23:34 Dose: 0.1 mg Folic Acid (Folic Acid) 1 mg PO DAILY [facility] Last Admin: 07/17/17 12:05 Dose: 1 mg Heparin Sodium (Porcine) (Heparin) 5,000 units SC Q8 [facility] PRN Reason: Protocol Last Admin: 07/18/17 05:11 Dose: 5,000 units Hydralazine HCl (Apresoline) 10 mg IVP Q6 PRN PRN Reason: SBP > 150 Last Admin: 07/16/17 22:14 Dose: 10 mg Hydralazine HCl (Apresoline) 25 mg PO Q8H [facility] Azithromycin (Zithromax 500mg In Ns) 500 mg in 250 mls @ 167 mls/hr IVPB DAILY [facility] PRN Reason: Protocol Last Admin: 07/17/17 11:49 Dose: 167 mls/hr Ceftriaxone Sodium (Rocephin 1 Gram Ivpb) 1 gm in 100 mls @ 100 mls/hr IVPB DAILY [facility] PRN Reason: Protocol Ondansetron HCl (Zofran Inj) 4 mg IVP Q6H PRN PRN Reason: Nausea/Vomiting Pantoprazole Sodium (Protonix Ec Tab) 40 mg PO 1800 [facility] Last Admin: 07/17/17 18:21 Dose: 40 mg Thiamine HCl (Vitamin B1 Inj) 100 mg IV DAILY [facility] Last Admin: 07/17/17 09:22 Dose: 100 mg - Labs Labs: 07/18/17 06:00 07/18/17 06:00 PT 12.2 SECONDS (9.4-12.5) 07/17/17 05:16 INR 1.06 (0.93-1.08) 07/17/17 05:16 APTT 35.1 Seconds (25.1-36.5) 07/17/17 05:16 - Constitutional Appears: Well, Non-toxic - Head Exam Head Exam: ATRAUMATIC, NORMOCEPHALIC - Eye Exam Eye Exam: Conjunctival injection, EOMI - ENT Exam ENT Exam: Mucous Membranes Moist, Normal Oropharynx - Neck Exam Neck Exam: Normal Inspection - Respiratory Exam Respiratory Exam: NORMAL BREATHING PATTERN. absent: Accessory Muscle Use Additional comments: decreased breath sounds on right compared to left - Cardiovascular Exam Cardiovascular Exam: +S1, +S2. absent: Tachycardia - GI/Abdominal Exam GI & Abdominal Exam: Soft, Normal Bowel Sounds - Extremities Exam Extremities Exam: Normal Inspection. absent: Pedal Edema - Back Exam Back Exam: NORMAL INSPECTION. absent: CVA tenderness (L), CVA tenderness (R) - Neurological Exam Neurological Exam: Alert, Awake, Oriented x3 - Psychiatric Exam Psychiatric exam: Normal Affect, Normal Mood - Skin Skin Exam: Dry, Intact, Normal Color, Warm Assessment and Plan - Assessment and Plan (Free Text) Assessment: 52 year old male with a past medical history of hypertension, chronic kidney disease, cocaine and alcohol abuse who presented to [facility] for 3 days of worsening dyspnea. Upon admission, he was found to have renal failure, hypertensive emergency, CHF exacerbation, a mild metabolic acidosis and proteinuria in the setting of concurrent B-andrew and cocaine use. Currently, the patient is undergoing HD with tunnel catheter. Furthermore, he is being medically optimized with He is on IV Furosemide, clonidine, amlodipine and hydralazine. Patient is scheduled today to get tunnel catheter placement for temporary HD. Vascular surgery also consulted for in patient AV fistula for HD. Plan: 1) Renal failure/UTI - Dialysis - upper extremity vein mapping - vascular surgery consulted, appreciate recommendations 2) Hypertensive emergency: following dialysis patient will likely not need to be on such a heavy anti-hypertensive regiment; will modify regiment accordingly. - Clonidine 0.2 mg q8h - Amlodipine 10 mg PO daily - Hydralazine 50 mg q6h 3) Acute renal failure on CKD - starting Phoslo 667mg with meals - Nephro is following, appreciate recommendations 4) Alcohol and substance abuse - [facility] protocol, unless otherwise indicated -Thiamine and Folic acid supplements IV daily 5)DVT/GI prophylaxis/FEN 1) Protonix 2) Heparin SC for DVT 3) HHD/ Renal 6) Pneumonia - Continue with azithromycin - Continue with Rocephin Patient seen, reviewed, and discussed with attending, Dr. Hassan.
--- NOTE | 2017-07-18 09:25 | RAD ---
HISTORY: r/o pneumonia COMPARISON: 07/16/2017 FINDINGS: LUNGS: The previous study showed pulmonary edema. This has resolved. There is a small left pleural effusion PLEURA: As above CARDIOVASCULAR: Normal. OSSEOUS STRUCTURES: No significant abnormalities. VISUALIZED UPPER ABDOMEN: Normal. OTHER FINDINGS: None. IMPRESSION: Resolved pulmonary edema. Small left effusion
[2017-07-18] MEDS: Thiamine 100 mg/ml Inj IV SCH (11:11)
[2017-07-18] MEDS: cefTRIAXone 1 gm 1 GM/100 ML BAG IVPB SCH (11:11)
[2017-07-18] MEDS: Azithromycin 500MG/NS 250ml 500 MG/250 ML BAG IVPB SCH (11:11)
--- NOTE | 2017-07-18 13:41 | PN ---
DATE: REASON FOR CONSULTATION AND FOLLOWUP: CHF, hypertension, renal failure, alcohol abuse, cocaine abuse, poor compliance with the medication. SUBJECTIVE: Denies any chest pain, shortness of breath, or any palpitations. Going for mapping of left arm for AV fistula. OBJECTIVE: GENERAL: Not in any apparent distress. VITAL SIGNS: Temperature afebrile, heart rate is 82, blood pressure 147/87. HEENT: PERRLA. Extraocular muscles intact. NECK: Supple. No carotid bruits or thyromegaly. CHEST: Clear to auscultation. HEART: S1 and S2, regular. ABDOMEN: Soft. EXTREMITIES: Clubbing and cyanosis negative. LABORATORY DATA: Blood workup as follows: WBC 6.2, hemoglobin 11.3, hematocrit 34.6, platelet count 250. Chemistries showed sodium 139, potassium 3.6, chloride of 104, carbon dioxide 24, anion gap of 15. BUN 42, creatinine of 6.5. ASSESSMENT: Status post dialysis catheter placed at right side of the chest, being scheduled for AV fistula, going for venous mapping in the left arm. History of congestive, fluid overload secondary to renal failure, uncontrolled hypertension, noncompliance with medication. History of substance abuse, alcohol abuse, tobacco abuse, cocaine and marijuana use, hyperlipidemia. RECOMMENDATION: Aggressive control of blood pressure, continue dialysis. We will discontinue telemetry. We will continue amlodipine. We are waiting for the echo to be done. Borderline troponin positive indeterminate secondary to renal insufficiency. Continue baby aspirin. Continue clonidine. Continue amlodipine. We will follow with you. Discharge planning. Thank you Dr. Bonner for providing us the opportunity in taking care of the patient, Reji Bravo. Bal Louie MD
[2017-07-18] MEDS: Pantoprazole 40 mg EC Tab PO SCH (17:45)
[2017-07-18 21:36] LABS: ALBUMIN (PEP) 3.4 g/dL (3.8-4.8); ALPHA-1-GLOBULIN (PEP) 0.5 g/dL (0.2-0.3)
--- NOTE | 2017-07-18 22:14 | CP.PCM.PN ---
Subjective - Date & Time of Evaluation Date of Evaluation: 07/18/17 Time of Evaluation: 11:00 - Subjective Subjective: 52 yo M w/ pmh of htn, advanced CKD, admitted with hypertensive emergency, now ESRD on HD; Patient seen during 2nd straight HD session; reports appetite improved; no breathing complaints; urinating well; Objective - Vital Signs/Intake and Output Vital Signs (last 24 hours): Temp Pulse Resp BP Pulse Ox 98.8 F 81 18 148/102 H 98 07/18/17 18:00 07/18/17 18:00 07/18/17 18:00 07/18/17 22:00 07/18/17 05:55 Intake and Output: 07/18/17 07/19/17 18:59 06:59 Intake Total 780 Output Total 700 Balance 80 - Medications Medications: Current Medications Acetaminophen (Tylenol 325mg Tab) 650 mg PO Q6H PRN PRN Reason: Headache Last Admin: 07/18/17 02:16 Dose: 650 mg Amlodipine Besylate (Norvasc) 10 mg PO DAILY [facility] Last Admin: 07/18/17 11:10 Dose: Not Given Amlodipine Besylate (Norvasc) 10 mg PO ONCE ONE Stop: 07/19/17 22:11 Aspirin (Aspirin Chewable) 81 mg PO DAILY [facility] Last Admin: 07/17/17 09:21 Dose: 81 mg Atorvastatin Calcium (Lipitor) 10 mg PO DIN [facility] Last Admin: 07/18/17 16:54 Dose: 10 mg Azithromycin (Zithromax) 500 mg PO DAILY [facility] Calcium Acetate (Phoslo) 667 mg PO WM [facility] Last Admin: 07/18/17 16:50 Dose: 667 mg Clonidine HCl (Catapres) 0.1 mg PO Q8H [facility] Last Admin: 07/18/17 16:50 Dose: 0.1 mg Folic Acid (Folic Acid) 1 mg PO DAILY [facility] Last Admin: 07/18/17 11:10 Dose: Not Given Heparin Sodium (Porcine) (Heparin) 5,000 units SC Q8 [facility] PRN Reason: Protocol Last Admin: 07/18/17 05:11 Dose: 5,000 units Hydralazine HCl (Apresoline) 10 mg IVP Q6 PRN PRN Reason: SBP > 150 Last Admin: 07/16/17 22:14 Dose: 10 mg Hydralazine HCl (Apresoline) 25 mg PO Q8H [facility] Last Admin: 07/18/17 22:00 Dose: 25 mg Ceftriaxone Sodium (Rocephin 1 Gram Ivpb) 1 gm in 100 mls @ 100 mls/hr IVPB DAILY [facility] PRN Reason: Protocol Last Admin: 07/18/17 11:11 Dose: Not Given Ondansetron HCl (Zofran Inj) 4 mg IVP Q6H PRN PRN Reason: Nausea/Vomiting Pantoprazole Sodium (Protonix Ec Tab) 40 mg PO 1800 [facility] Last Admin: 07/18/17 17:45 Dose: 40 mg Thiamine HCl (Vitamin B1 Inj) 100 mg IV DAILY [facility] Last Admin: 07/18/17 11:11 Dose: Not Given Torsemide (Demadex) 20 mg PO BID [facility] - Labs Labs: 07/18/17 06:00 07/18/17 06:00 PT 12.2 SECONDS (9.4-12.5) 07/17/17 05:16 INR 1.06 (0.93-1.08) 07/17/17 05:16 APTT 35.1 Seconds (25.1-36.5) 07/17/17 05:16 - Constitutional Appears: Non-toxic, No Acute Distress - Eye Exam Eye Exam: absent: Scleral icterus - ENT Exam ENT Exam: Mucous Membranes Moist - Respiratory Exam Respiratory Exam: Clear to Ausculation Bilateral. absent: Respiratory Distress - Cardiovascular Exam Cardiovascular Exam: RRR, +S1, +S2. absent: JVD - GI/Abdominal Exam GI & Abdominal Exam: Soft. absent: Distended, Tenderness - Exam Exam: absent: Bladder Distension - Extremities Exam Additional comments: no leg edema; - Neurological Exam Neurological Exam: Alert, Awake - Psychiatric Exam Psychiatric exam: Normal Affect, Normal Mood. absent: Agitated - Skin Skin Exam: Warm. absent: Cyanosis Assessment and Plan (1) ESRD on hemodialysis Assessment & Plan: Newly deemed ESRD; tolerating HD well; will plan for 3rd HD session with full blood flow either tomorrow or (depending on timing AVF creation tomorrow); -avoid nephrotoxic agents to preserve residual renal function; -NPO past mn for AVF creation procedure with vascular surgery; Status: Acute (2) Hypertensive emergency Assessment & Plan: BP overall much improved; trying to avoid overly aggressive BP control for now to preserve residual renal function; continue clonidine 0.1 q8h, hydralazine decreased to 25 mg q8h; continue amlodipine 10 mg daily (even on HD days, need to have stable drug level in blood); IV lasix stopped, starting torsemide PO 20 mg bid; Status: Acute (3) CHF (congestive heart failure) Assessment & Plan: Symptoms much improved; still awaiting echo to assess LV function; Status: Acute (4) Metabolic acidosis Status: Acute (5) Proteinuria Assessment & Plan: Workup unremarkable; Status: Acute (6) Pyuria Status: Acute (7) Chronic kidney disease-mineral and bone disorder Assessment & Plan: Secondary hyperparathyroidism of CKD; PTH not high enough to start calcitriol; phos improved with dialysis but will likely increase as patient starts eating more; continue phoslo 1 tab w/ meals; Status: Chronic (8) Anemia Assessment & Plan: Relatively mild; due to CKD as well as component of iron deficiency; hgb above goal for ESRD (10-11g), will simply monitor for now; Status: Acute
[2017-07-19 06:17] LABS: BASO # 0.02 K/mm3 (0.0-2.0); BASO % 0.3 % (0.0-3.0); EOS # 0.3 (0.0-0.7); EOS % 5.3 % (1.5-5.0); GRAN # 3.04 (1.4-6.5); GRAN % 50.2 % (50.0-68.0); HEMOGLOBIN 11.2 g/dL (14.0-18.0); LYMPH # 1.8 (1.2-3.4); LYMPH % 30.2 % (22.0-35.0); MEAN CELL VOLUME 91.9 fl (80.0-105.0); MEAN CORPUSCULAR HEMOGLOBIN 31.2 pg (25.0-35.0); MEAN CORPUSCULAR HGB CONC 33.9 g/dl (31.0-37.0); MEAN PLATELET VOLUME 10.8 fl (7.0-11.0); MONO # 0.9 (0.1-0.6); RBC 3.59 10^6/uL (3.5-6.1); RED CELL DISTRIBUTION WIDTH 14.7 % (11.5-14.5); WHITE BLOOD COUNT 6.1 10^3/ul (4.5-11.0)
[2017-07-19 07:21] LABS: ALB/GLOB RATIO 0.9 (1.1-1.8); ALBUMIN 3.4 g/dL (3.0-4.8); CALCIUM 9.7 mg/dL (8.4-10.5)
--- NOTE | 2017-07-19 08:39 | CP.PCM.PN ---
<Juan Carlos Gonzalez - Last Filed: 07/19/17 11:31> Subjective - Date & Time of Evaluation Date of Evaluation: 07/19/17 Time of Evaluation: 07:00 - Subjective Subjective: Juan Carlos Gonzalez DO, PGY-1: Hospitalist Service Patient seen and examined at bedside. Patient reports appetite has returned and his level of dyspnea has diminished. He is aware that he is going for surgery at noon for AVF. Otherwise, no events noted overnight. Objective - Vital Signs/Intake and Output Vital Signs (last 24 hours): Temp Pulse Resp BP Pulse Ox 98.3 F 65 20 153/99 H 97 07/19/17 06:00 07/19/17 06:00 07/19/17 06:00 07/19/17 06:00 07/19/17 06:00 Intake and Output: 07/19/17 07/19/17 06:59 18:59 Intake Total 720 Output Total 100 Balance 620 - Medications Medications: Current Medications Acetaminophen (Tylenol 325mg Tab) 650 mg PO Q6H PRN PRN Reason: Headache Last Admin: 07/18/17 02:16 Dose: 650 mg Amlodipine Besylate (Norvasc) 10 mg PO DAILY [facility] Last Admin: 07/18/17 11:10 Dose: Not Given Amlodipine Besylate (Norvasc) 10 mg PO ONCE ONE Stop: 07/19/17 22:11 Aspirin (Aspirin Chewable) 81 mg PO DAILY [facility] Last Admin: 07/17/17 09:21 Dose: 81 mg Atorvastatin Calcium (Lipitor) 10 mg PO DIN [facility] Last Admin: 07/18/17 16:54 Dose: 10 mg Azithromycin (Zithromax) 500 mg PO DAILY [facility] Calcium Acetate (Phoslo) 667 mg PO WM [facility] Last Admin: 07/18/17 16:50 Dose: 667 mg Clonidine HCl (Catapres) 0.1 mg PO Q8H [facility] Last Admin: 07/19/17 00:02 Dose: Not Given Folic Acid (Folic Acid) 1 mg PO DAILY [facility] Last Admin: 07/18/17 11:10 Dose: Not Given Heparin Sodium (Porcine) (Heparin) 5,000 units SC Q8 [facility] PRN Reason: Protocol Last Admin: 07/18/17 05:11 Dose: 5,000 units Hydralazine HCl (Apresoline) 10 mg IVP Q6 PRN PRN Reason: SBP > 150 Last Admin: 07/16/17 22:14 Dose: 10 mg Hydralazine HCl (Apresoline) 25 mg PO Q8H [facility] Last Admin: 07/18/17 22:31 Dose: Not Given Ceftriaxone Sodium (Rocephin 1 Gram Ivpb) 1 gm in 100 mls @ 100 mls/hr IVPB DAILY [facility] PRN Reason: Protocol Last Admin: 07/18/17 11:11 Dose: Not Given Ondansetron HCl (Zofran Inj) 4 mg IVP Q6H PRN PRN Reason: Nausea/Vomiting Pantoprazole Sodium (Protonix Ec Tab) 40 mg PO 1800 [facility] Last Admin: 07/18/17 17:45 Dose: 40 mg Thiamine HCl (Vitamin B1 Inj) 100 mg IV DAILY [facility] Last Admin: 07/18/17 11:11 Dose: Not Given Torsemide (Demadex) 20 mg PO BID [facility] Last Admin: 07/18/17 22:30 Dose: 20 mg - Labs Labs: 07/19/17 06:00 07/19/17 06:00 PT 12.2 SECONDS (9.4-12.5) 07/17/17 05:16 INR 1.06 (0.93-1.08) 07/17/17 05:16 APTT 35.1 Seconds (25.1-36.5) 07/17/17 05:16 - Constitutional Appears: Non-toxic, No Acute Distress - Head Exam Head Exam: ATRAUMATIC, NORMOCEPHALIC - Eye Exam Eye Exam: Conjunctival injection, EOMI, Scleral icterus - ENT Exam ENT Exam: Mucous Membranes Moist - Neck Exam Neck Exam: Normal Inspection - Respiratory Exam Respiratory Exam: Clear to Ausculation Bilateral, NORMAL BREATHING PATTERN. absent: Accessory Muscle Use - Cardiovascular Exam Cardiovascular Exam: +S1, +S2. absent: Tachycardia - GI/Abdominal Exam GI & Abdominal Exam: Soft, Normal Bowel Sounds - Extremities Exam Extremities Exam: Normal Capillary Refill, Normal Inspection. absent: Pedal Edema - Neurological Exam Neurological Exam: Alert, Awake, Oriented x3 - Psychiatric Exam Psychiatric exam: Normal Affect, Normal Mood - Skin Skin Exam: Cyanosis, Dry, Intact, Normal Color, Warm Assessment and Plan - Assessment and Plan (Free Text) Assessment: 52 year old male with a past medical history of hypertension, chronic kidney disease, cocaine and alcohol abuse who presented to [facility] for 3 days of worsening dyspnea. Upon admission, he was found to have renal failure, hypertensive emergency, CHF exacerbation, a mild metabolic acidosis and proteinuria in the setting of concurrent B-andrew and cocaine use. Currently, the patient is undergoing HD with tunnel catheter and being medically optimized with diuretic, clonidine, amlodipine and hydralazine. Patient has underwent two dialysis sessions and will be getting AVF today at noon, courtesy of Dr. Karli Tripp. Plan: 1) Renal failure/Complicated UTI - Dialysis - vascular surgery for AVF scheduled today - Continue with Rocephin for a total of 7 days 2) Hypertension: (Hypertensive emergency resolved - Clonidine 0.1 mg q8h - Amlodipine 10 mg PO daily - Hydralazine 25 mg q8h - Torsemide 20 mg BID - Will follow up with labs ordered by nephrology. - Appreciate Nephrology recommendations 3) Acute renal failure on CKD - starting Phoslo 667mg with meals - Nephro is following, appreciate recommendations - Patient to have 3 dialysis sessions before discharge 4) Alcohol and substance abuse -Thiamine and Folic acid supplements daily 5)DVT/GI prophylaxis/FEN 1) Protonix 2) Heparin SC for DVT 3) HHD/Renal 6) Questionable pneumonia - Discontinuing Azithromycin given chest X- ray on 07/18/17 showed no infiltrate , and patient had no history of fever, chills, or productive cough. Patient seen, reviewed, and discussed with attending physician, Dr. Sheldon. <Ben Sheldon - Last Filed: 07/19/17 15:36> Objective - Vital Signs/Intake and Output Vital Signs (last 24 hours): Temp Pulse Resp BP Pulse Ox 98.2 F 79 17 164/92 H 98 07/19/17 15:17 07/19/17 15:17 07/19/17 15:17 07/19/17 15:17 07/19/17 15:17 Intake and Output: 07/19/17 07/19/17 06:59 18:59 Intake Total 720 0 Output Total 100 200 Balance 620 -200 - Medications Medications: Current Medications Acetaminophen (Tylenol 325mg Tab) 650 mg PO Q6H PRN PRN Reason: Headache Last Admin: 07/18/17 02:16 Dose: 650 mg Amlodipine Besylate (Norvasc) 10 mg PO DAILY [facility] Last Admin: 07/19/17 10:05 Dose: 10 mg Amlodipine Besylate (Norvasc) 10 mg PO ONCE ONE Stop: 07/19/17 22:11 Aspirin (Aspirin Chewable) 81 mg PO DAILY [facility] Last Admin: 07/17/17 09:21 Dose: 81 mg Atorvastatin Calcium (Lipitor) 10 mg PO DIN [facility] Last Admin: 07/18/17 16:54 Dose: 10 mg Calcium Acetate (Phoslo) 667 mg PO WM [facility] Last Admin: 07/19/17 11:09 Dose: Not Given Clonidine HCl (Catapres) 0.1 mg PO Q8H [facility] Last Admin: 07/19/17 10:04 Dose: 0.1 mg Folic Acid (Folic Acid) 1 mg PO DAILY [facility] Last Admin: 07/19/17 10:05 Dose: 1 mg Heparin Sodium (Porcine) (Heparin) 5,000 units SC Q8 [facility] PRN Reason: Protocol Last Admin: 07/18/17 05:11 Dose: 5,000 units Hydralazine HCl (Apresoline) 10 mg IVP Q6 PRN PRN Reason: SBP > 150 Last Admin: 07/16/17 22:14 Dose: 10 mg Hydralazine HCl (Apresoline) 25 mg PO Q8H [facility] Last Admin: 07/19/17 10:05 Dose: 25 mg Ceftriaxone Sodium (Rocephin 1 Gram Ivpb) 1 gm in 100 mls @ 100 mls/hr IVPB DAILY [facility] PRN Reason: Protocol Last Admin: 07/19/17 10:05 Dose: 100 mls/hr Sodium Chloride (Sodium Chloride 0.9%) 1,000 mls @ 75 mls/hr IV .[id number] [facility] Stop: 07/19/17 16:46 Ondansetron HCl (Zofran Inj) 4 mg IVP Q6H PRN PRN Reason: Nausea/Vomiting Oxycodone/Acetaminophen (Percocet 5/325 Mg Tab) 2 tab PO Q4H PRN PRN Reason: Pain, moderate (4-7) Stop: 07/22/17 14:37 Pantoprazole Sodium (Protonix Ec Tab) 40 mg PO 1800 [facility] Last Admin: 07/18/17 17:45 Dose: 40 mg Thiamine HCl (Vitamin B1 Tab) 100 mg PO DAILY [facility] Torsemide (Demadex) 20 mg PO BID [facility] Last Admin: 07/19/17 10:04 Dose: 20 mg - Labs Labs: 07/19/17 06:00 07/19/17 06:00 PT 12.2 SECONDS (9.4-12.5) 07/17/17 05:16 INR 1.06 (0.93-1.08) 07/17/17 05:16 APTT 35.1 Seconds (25.1-36.5) 07/17/17 05:16 Attending/Attestation - Attestation I have personally seen and examined this patient.: Yes I have fully participated in the care of the patient.: Yes I have reviewed all pertinent clinical information, including history, physical exam and plan: Yes Notes (Text): 07/19/17 15:29 52 year old male with past medical history of hypertension, CKD and substance abuse (alcohol and cocaine) who presented with complaint of worsening shortness of breath. He was found to have hypertensive emergency, fluid overload and acute on chronic renal failure. He is being followed by cardiology and nephrology. He is currently on clonidine , norvasc, hydralazine and torsemide. He was started on hemodialysis. Plan is for AVF today. He is on iv antibiotics for UTI. He was counselled on risks of continued substance abuse. Ben Sheldon MD Hospitalist.
[2017-07-19] MEDS: cefTRIAXone 1 gm 1 GM/100 ML BAG IVPB SCH (10:05)
[2017-07-19] MEDS: Thiamine 100 mg/ml Inj IV SCH (10:06)
[2017-07-19] MEDS ORDERED: Absorbable Gelatin Sponge Size 100 ONE (11:48)
[2017-07-19] MEDS ORDERED: Iohexol 240 (50 ml) ONE (11:49)
[2017-07-19] MEDS ORDERED: Bupivacaine 0.5% Inj(30mL) ONE (11:49)
[2017-07-19] MEDS ORDERED: Thrombin Topical 20,000 Intl Units Spray Kit TOP ONE (11:49)
[2017-07-19] MEDS ORDERED: Lidocaine 1% Inj (20ml) ONE (11:49)
[2017-07-19] MEDS ORDERED: Rocuronium 10 mg/ml (5 ml) ONE ×2 (12:17→12:48)
[2017-07-19] MEDS ORDERED: Vancomycin 1 g Inj ONE (12:25)
[2017-07-19] MEDS ORDERED: Midazolam 2 MG/2 ML VIAL ONE (12:48)
[2017-07-19] MEDS ORDERED: Propofol 10 mg/ml Inj (20 ML) ONE (12:48)
[2017-07-19] MEDS ORDERED: Phenylephrine 10 mg/ml Inj ONE (13:08)
[2017-07-19] MEDS ORDERED: ePHEDrine 50 mg/ml Inj ONE (13:16)
[2017-07-19] MEDS ORDERED: Neostigmine Methylsulfate 3mg/3ml Syringe IV ONE (14:21)
[2017-07-19] MEDS ORDERED: HYDROmorphone 0.5 mg/0.5 ml ISec IVP PRN (14:33)
--- NOTE | 2017-07-19 14:35 | PCM.SURG1 ---
Surgeon's Initial Post Op Note - Surgeon's Notes Surgeon: Dr. Tripp Pantry Attendant: Sagrario Jean PGY2 Type of Anesthesia: General Endo Anesthesia Administered By: Dr. Jalloh Pre-Operative Diagnosis: End stage renal disease needing hemodialysis Operative Findings: good R arm veins Post-Operative Diagnosis: Same Operation Performed: L arteriovenous fistula. Antecubital. Brachio cephalic Specimen/Specimens Removed: none Estimated Blood Loss: EBL {In ML}: 10 Blood Products Given: N/A Drains Used: No Drains Post-Op Condition: Good Date of Surgery/Procedure: 07/19/17 Time of Surgery/Procedure: 14:34
[2017-07-19] MEDS ORDERED: Oxycodone/Acetaminophen 5/325 mg Tab PO PRN (14:36)
[2017-07-19] MEDS ORDERED: Sodium Chloride 0.9% 1,000 ML IV SCH (14:45)
--- NOTE | 2017-07-19 16:13 | PN ---
DATE: 07/19/2017 REASON FOR CONSULTATION AND FOLLOWUP: History of hypertension; alcohol abuse; substance abuse; acute renal failure, waiting for AV shunt preoperative clearance. SUBJECTIVE: The patient denies any chest pain, shortness of breath, or any palpitations. Yesterday, went for mapping of left arm for AV fistula. He is n.p.o. for AV fistula today for dialysis access site. OBJECTIVE GENERAL: Not in apparent distress. VITAL SIGNS: As follows: Temperature afebrile, heart rate 65, blood pressure . HEENT: PERRLA, intact. NECK: Supple. No carotid bruit or thyromegaly. CHEST: Clear to auscultation. HEART: S1 and S2 regular. ABDOMEN: Soft. EXTREMITIES: Clubbing and cyanosis, negative. LABORATORY DATA: Blood workup as follows: WBC , hemoglobin ____, hematocrit 33.0, and platelet count 221,000. Chemistry shows sodium 141, potassium 3.9, chloride 106, carbon dioxide 27, anion gap of 14, BUN 37 and creatinine 5.9. IMPRESSION: Uncontrolled hypertension - the patient is n.p.o. for arteriovenous fistula today. He is status post dialysis catheter placed to the right chest and is going for arteriovenous fistula today. He had mapping done yesterday. Congestive heart failure, fluid overload secondary to renal failure. Noncompliance to medication issues. Substance abuse, history of alcohol abuse, history of tobacco abuse, and history of cocaine and marijuana use, hypertension, and hyperlipidemia. RECOMMENDATIONS: The patient is cleared from Cardiology point of view to get AV fistula today. We will wait for the echo to be done. Continue IV hydralazine p.r.n., continue p.o. clonidine, and continue p.o. hydralazine as well. We will follow with you. If remaining stable, we will discontinue Telemetry. After the AV fistula, the patient is okay to be discharged. Thank you Dr. Sheldon for providing us the opportunity in taking care of the patient, Reji Bravo. Bal Louie MD [facility] # [id number]
--- NOTE | 2017-07-19 19:37 | OP ---
PROCEDURE DATE: PREOPERATIVE DIAGNOSIS: End-stage renal disease. POSTOPERATIVE DIAGNOSIS: End-stage renal disease. PROCEDURE: Left arm brachiocephalic Esperanza type fistula. SURGEON: Karli Tripp M.D. TYPE OF ANESTHESIA: General. DESCRIPTION OF PROCEDURE: The patient was brought to the OR and placed supine on the OR table. After adequate general anesthesia had been accomplished, the entire left arm and forearm were prepped with ChloraPrep and draped out as a sterile field. A transverse antecubital incision was made. The antecubital vein was identified and 1-inch segment of that was dissected out leading to cephalic, all branches were ligated with 2-0 silk and divided. The brachial artery and its branches were also dissected out and looped out using vessel loop. After proximal and distal occlusion, the arterial venous anastomosis was performed in a [id number] fashion via longitudinal arteriotomy and venotomy using 6-0 Prolene continuous suture. Upon completion of the anastomosis, the vessel loop was removed and palpable thrill was noted. The vein distal to the anastomosis was ligated, making this in actuality an end vein-side artery AV fistula. Good hemostasis was assured. The wound was closed in 2 layers using 3-0 Monocryl interrupted suture for the subcutaneous tissue and 4-0 Monocryl subcuticular suture for skin. The wound was infiltrated with 0.5 Marcaine and 2% Xylocaine. A Dermabond was placed, so was a sterile dressing. The patient tolerated the procedure well and was returned to the recovery room in stable condition. Karli Tripp MD
--- NOTE | 2017-07-19 19:46 | CP.PCM.PN ---
Subjective - Date & Time of Evaluation Date of Evaluation: 07/19/17 Time of Evaluation: 22:00 - Subjective Subjective: Patient unable to be seen due to being in OR; Objective - Vital Signs/Intake and Output Vital Signs (last 24 hours): Temp Pulse Resp BP Pulse Ox 98.2 F 79 17 164/92 H 98 07/19/17 15:17 07/19/17 15:17 07/19/17 15:17 07/19/17 15:17 07/19/17 15:17 Intake and Output: 07/19/17 07/20/17 18:59 06:59 Intake Total 0 Output Total 200 Balance -200 - Medications Medications: Current Medications Acetaminophen (Tylenol 325mg Tab) 650 mg PO Q6H PRN PRN Reason: Headache Last Admin: 07/18/17 02:16 Dose: 650 mg Amlodipine Besylate (Norvasc) 10 mg PO DAILY [facility] Last Admin: 07/19/17 10:05 Dose: 10 mg Amlodipine Besylate (Norvasc) 10 mg PO ONCE ONE Stop: 07/19/17 22:11 Aspirin (Aspirin Chewable) 81 mg PO DAILY [facility] Last Admin: 07/17/17 09:21 Dose: 81 mg Atorvastatin Calcium (Lipitor) 10 mg PO DIN [facility] Last Admin: 07/18/17 16:54 Dose: 10 mg Calcium Acetate (Phoslo) 667 mg PO WM [facility] Last Admin: 07/19/17 11:09 Dose: Not Given Clonidine HCl (Catapres) 0.1 mg PO Q8H [facility] Last Admin: 07/19/17 10:04 Dose: 0.1 mg Folic Acid (Folic Acid) 1 mg PO DAILY [facility] Last Admin: 07/19/17 10:05 Dose: 1 mg Heparin Sodium (Porcine) (Heparin) 5,000 units SC Q8 [facility] PRN Reason: Protocol Last Admin: 07/18/17 05:11 Dose: 5,000 units Hydralazine HCl (Apresoline) 10 mg IVP Q6 PRN PRN Reason: SBP > 150 Last Admin: 07/16/17 22:14 Dose: 10 mg Hydralazine HCl (Apresoline) 25 mg PO Q8H [facility] Last Admin: 07/19/17 10:05 Dose: 25 mg Ceftriaxone Sodium (Rocephin 1 Gram Ivpb) 1 gm in 100 mls @ 100 mls/hr IVPB DAILY [facility] PRN Reason: Protocol Last Admin: 07/19/17 10:05 Dose: 100 mls/hr Ondansetron HCl (Zofran Inj) 4 mg IVP Q6H PRN PRN Reason: Nausea/Vomiting Oxycodone/Acetaminophen (Percocet 5/325 Mg Tab) 2 tab PO Q4H PRN PRN Reason: Pain, moderate (4-7) Stop: 07/22/17 14:37 Pantoprazole Sodium (Protonix Ec Tab) 40 mg PO 1800 [facility] Last Admin: 07/18/17 17:45 Dose: 40 mg Thiamine HCl (Vitamin B1 Tab) 100 mg PO DAILY [facility] Torsemide (Demadex) 20 mg PO BID [facility] Last Admin: 07/19/17 10:04 Dose: 20 mg - Labs Labs: 07/19/17 06:00 07/19/17 06:00 PT 12.2 SECONDS (9.4-12.5) 07/17/17 05:16 INR 1.06 (0.93-1.08) 07/17/17 05:16 APTT 35.1 Seconds (25.1-36.5) 07/17/17 05:16 Assessment and Plan (1) ESRD on hemodialysis Assessment & Plan: Stable electrolyte status; next HD for tomorrow on full blood flow; Status: Acute (2) Hypertensive emergency Assessment & Plan: BP improved; plasma metanephrines only mildly elevated; will repeat at some point; continue current meds including diuretics; will benefit from UF on HD; Status: Acute (3) CHF (congestive heart failure) Assessment & Plan: Echo done, awaiting result to decide if he'll benefit from B-blockers/AFSANEH blockade; Status: Acute (4) Metabolic acidosis Status: Acute (5) Proteinuria Assessment & Plan: Workup unremarkable; Status: Acute (6) Pyuria Status: Acute (7) Chronic kidney disease-mineral and bone disorder Assessment & Plan: continue phoslo w/ meals; Status: Chronic (8) Anemia Status: Acute
[2017-07-19] MEDS ORDERED: Magnesium Oxide 400 mg Tab UD PO STA (20:42)
[2017-07-19] MEDS: Pantoprazole 40 mg EC Tab PO SCH (21:08)
[2017-07-19 22:41] LABS: ANCA SCREEN NEGATIVE (NEGATIVE)
[2017-07-20 07:35] VITALS: RESP 20; TEMP 98.3; O2SAT 96
--- NOTE | 2017-07-20 08:05 | CP.PCM.PN ---
Subjective - Date & Time of Evaluation Date of Evaluation: 07/20/17 Time of Evaluation: 08:02 - Subjective Subjective: Vascular Pt s&e. Pt underwent AVF yesterday and tolerated it well. Denies L hand pain, dizziness, F/C/N/V/D/CP/SOB. Objective - Vital Signs/Intake and Output Vital Signs (last 24 hours): Temp Pulse Resp BP Pulse Ox 98.3 F 85 20 154/82 H 96 07/20/17 07:34 07/20/17 07:34 07/20/17 07:34 07/20/17 07:34 07/20/17 07:34 Intake and Output: 07/20/17 07/20/17 06:59 18:59 Intake Total 600 Output Total 200 Balance 400 - Medications Medications: Current Medications Acetaminophen (Tylenol 325mg Tab) 650 mg PO Q6H PRN PRN Reason: Headache Last Admin: 07/19/17 21:06 Dose: 650 mg Amlodipine Besylate (Norvasc) 10 mg PO DAILY [facility] Last Admin: 07/19/17 10:05 Dose: 10 mg Aspirin (Aspirin Chewable) 81 mg PO DAILY [facility] Last Admin: 07/17/17 09:21 Dose: 81 mg Atorvastatin Calcium (Lipitor) 10 mg PO DIN [facility] Last Admin: 07/19/17 21:07 Dose: 10 mg Calcium Acetate (Phoslo) 667 mg PO WM [facility] Last Admin: 07/19/17 21:07 Dose: 667 mg Clonidine HCl (Catapres) 0.1 mg PO Q8H [facility] Last Admin: 07/20/17 00:08 Dose: 0.1 mg Folic Acid (Folic Acid) 1 mg PO DAILY [facility] Last Admin: 07/19/17 10:05 Dose: 1 mg Heparin Sodium (Porcine) (Heparin) 5,000 units SC Q8 [facility] PRN Reason: Protocol Last Admin: 07/19/17 21:00 Dose: Not Given Hydralazine HCl (Apresoline) 10 mg IVP Q6 PRN PRN Reason: SBP > 150 Last Admin: 07/16/17 22:14 Dose: 10 mg Hydralazine HCl (Apresoline) 25 mg PO Q8H [facility] Last Admin: 07/20/17 03:51 Dose: Not Given Ceftriaxone Sodium (Rocephin 1 Gram Ivpb) 1 gm in 100 mls @ 100 mls/hr IVPB DAILY [facility] PRN Reason: Protocol Last Admin: 07/19/17 10:05 Dose: 100 mls/hr Ondansetron HCl (Zofran Inj) 4 mg IVP Q6H PRN PRN Reason: Nausea/Vomiting Oxycodone/Acetaminophen (Percocet 5/325 Mg Tab) 2 tab PO Q4H PRN PRN Reason: Pain, moderate (4-7) Stop: 07/22/17 14:37 Pantoprazole Sodium (Protonix Ec Tab) 40 mg PO 1800 [facility] Last Admin: 07/19/17 21:08 Dose: 40 mg Thiamine HCl (Vitamin B1 Tab) 100 mg PO DAILY [facility] Torsemide (Demadex) 20 mg PO BID [facility] Last Admin: 07/19/17 21:09 Dose: 20 mg - Labs Labs: 07/19/17 06:00 07/19/17 06:00 PT 12.2 SECONDS (9.4-12.5) 07/17/17 05:16 INR 1.06 (0.93-1.08) 07/17/17 05:16 APTT 35.1 Seconds (25.1-36.5) 07/17/17 05:16 - Constitutional Appears: No Acute Distress - Head Exam Head Exam: ATRAUMATIC, NORMAL INSPECTION, NORMOCEPHALIC - Eye Exam Eye Exam: EOMI, Normal appearance, PERRL Pupil Exam: NORMAL ACCOMODATION, PERRL - ENT Exam ENT Exam: Mucous Membranes Moist, Normal Exam - Neck Exam Neck Exam: Full ROM, Normal Inspection. absent: Lymphadenopathy - Respiratory Exam Respiratory Exam: Clear to Ausculation Bilateral, NORMAL BREATHING PATTERN - Cardiovascular Exam Cardiovascular Exam: REGULAR RHYTHM, +S1, +S2. absent: Murmur - GI/Abdominal Exam GI & Abdominal Exam: Soft, Normal Bowel Sounds. absent: Distended, Firm, Guarding, Tenderness - Extremities Exam Extremities Exam: Full ROM Additional comments: L arm AVF site: C/D/I. Dermabond in place. No bleeding/hematoma/erythema. Mild TTP. THrills+, Bruit +, palpable distal pulses. Warm hands. Full ROM. - Back Exam Back Exam: NORMAL INSPECTION - Neurological Exam Neurological Exam: Alert, Awake, CN II-XII Intact, Normal Gait, Oriented x3 - Psychiatric Exam Psychiatric exam: Normal Affect, Normal Mood - Skin Skin Exam: Dry, Intact, Normal Color, Warm. absent: Erythema Assessment and Plan - Assessment and Plan (Free Text) Assessment: POD 1 s/p L brachio-cephalic AVF -follow up at Dr. Tripp's office in 1 month to reassess maturation of the fistula : Typically takes 6 weeks for maturation for use -OK to use Permacath -Dermabond (glue) stays untill it falls off naturally. Don't remove dermabond on L arm -Medical management DW Dr. Tripp
[2017-07-20 08:14] LABS: BASO # 0.02 K/mm3 (0.0-2.0); BASO % 0.2 % (0.0-3.0); EOS # 0.4 (0.0-0.7); EOS % 4.7 % (1.5-5.0); GRAN # 5.45 (1.4-6.5); GRAN % 64.5 % (50.0-68.0); HEMOGLOBIN 10.8 g/dL (14.0-18.0); LYMPH # 1.6 (1.2-3.4); LYMPH % 18.3 % (22.0-35.0); MEAN CELL VOLUME 91.7 fl (80.0-105.0); MEAN CORPUSCULAR HEMOGLOBIN 30.8 pg (25.0-35.0); MEAN CORPUSCULAR HGB CONC 33.5 g/dl (31.0-37.0); MEAN PLATELET VOLUME 10.1 fl (7.0-11.0); MONO % 12.3 % (1.0-6.0); RBC 3.51 10^6/uL (3.5-6.1); RED CELL DISTRIBUTION WIDTH 14.8 % (11.5-14.5); WHITE BLOOD COUNT 8.5 10^3/ul (4.5-11.0)
[2017-07-20 08:29] LABS: ALBUMIN 3.5 g/dL (3.0-4.8)
--- NOTE | 2017-07-20 10:23 | CARD ---
APPROVED REPORT EXAM: Two-dimensional and M-mode echocardiogram with Doppler and color Doppler. Other Information Quality : GoodRhythm : INDICATION Congestive Heart Failure 2D DIMENSIONS Left Atrium (2D)4.2 (1.6-4.0cm)IVSd1.8 (0.7-1.1cm) LVDd4.9 (3.9-5.9cm)PWd1.8 (0.7-1.1cm) LVDs3.9 (2.5-4.0cm)FS (%) 19.0 % LVEF (%)39.0 (>50%) M-Mode DIMENSIONS Aortic Root3.00 (2.2-3.7cm)Aortic Cusp Exc.2.00 (1.5-2.0cm) Aortic Valve AoV Peak [id number]/Rene Peak GR.7mmHg Mitral Valve E/A ratio0.0 TDI E/Lateral E'0.0E/Medial E'0.0 Tricuspid Valve TR Peak [id number] [id number] Peak Gr.15mmHg [id number] LEFT VENTRICLE The left ventricle is normal size. There is moderate concentric left ventricular hypertrophy. Left ventricle systolic function is mildly impaired. The Ejection Fraction is 40-45%. There is mild global hypokinesis. RIGHT VENTRICLE The right ventricle is normal size. ATRIA The left atrium is mildly dilated. The right atrium size is normal. The interatrial septum is intact with no evidence for an atrial septal defect. AORTIC VALVE The aortic valve is normal in structure. MITRAL VALVE The mitral valve is normal in structure. Mitral regurgitation is trace. TRICUSPID VALVE The tricuspid valve is normal in structure. There is trace tricuspid regurgitation. PULMONIC VALVE The pulmonic valve is not well visualized. There is trace pulmonic valvular regurgitation. GREAT VESSELS The aortic root is normal in size. PERICARDIAL EFFUSION There is no pericardial effusion. <Conclusion> The left ventricle is normal size. There is moderate concentric left ventricular hypertrophy. Left ventricle systolic function is mildly impaired. The Ejection Fraction is 40-45%. There is mild global hypokinesis.
[2017-07-20] MEDS: cefTRIAXone 1 gm 1 GM/100 ML BAG IVPB SCH (11:17)
--- NOTE | 2017-07-20 15:10 | PN ---
DATE: 07/20/2017 LOCATION: The patient in room 566, bed 1. REASON FOR CONSULTATION AND FOLLOWUP: Hypertension, alcohol abuse, substance abuse, acute renal failure, CHF, pleural effusion, status post AV shunt put in yesterday. SUBJECTIVE: The patient lying flat in bed without any chest pain, shortness of breath, or palpitations. PHYSICAL EXAMINATION: VITAL SIGNS: Blood pressure 154/82, respirations 20, pulse 85, temperature 98.3. HEENT: Head is normocephalic. Eyes: Pupils normal. Conjunctivae slightly pale. NECK: JVP low, carotids equal. THORAX: AP diameter normal. LUNGS: Slightly diminished breath sounds at the left base. Otherwise, lungs are clear. CARDIOVASCULAR: S1 and S2. ABDOMEN: Soft, no tenderness or organomegaly. EXTREMITIES: The patient has left fistula created on left arm yesterday by Dr. Montenegro. LABORATORY DATA: WBC 8.5, hemoglobin 10.8, hematocrit 32.2, platelets 212. Sodium 139, potassium 3.9. BUN 33, creatinine 6.1. AST and ALT normal. Total protein and albumin normal. The patient had a repeat chest x-ray on 07/18/2017, which showed resolving of the pulmonary edema, small left pleural effusion still present. Echo was done on 07/19/2017, report is pending. DIAGNOSES: Uncontrolled hypertension, renal failure, status post AV fistula left arm, congestive heart failure, fluid overload, pleural effusion, substance abuse, alcohol abuse, tobacco abuse, cocaine and marijuana abuse, hypertension, hyperlipidemia. PLAN: Continue hydralazine 25 mg p.o. q. 8 hours, aspirin 81 mg daily, clonidine 0.1 mg q. 8 hours, Demadex 20 mg p.o. b.i.d., folic acid 1 mg daily, heparin 5000 units subq q. 8 hours, amlodipine 10 mg daily, Protonix 40 p.o. daily, Rocephin 1 g IV daily, thiamine 100 mg daily. We will continue current therapy and follow the echo report. We will follow. Bal Williamson MD
--- NOTE | 2017-07-20 17:10 | CP.PCM.DIS ---
<Juan Carlos Gonzalez - Last Filed: 07/20/17 20:15> Provider - Provider Date of Admission: 07/15/17 12:21 Attending physician: Ben Sheldon MD Primary care physician: Eunice Stafford DO Consults: Dr. Lukas Tripp Dr. Time Spent in preparation of Discharge (in minutes): 50 Hospital Course - Lab Results Lab Results: Micro Results 07/15/17 15:40 Naris MRSA Culture (Admit) - Final MRSA NOT DETECTED 07/15/17 14:14 Urine Urine Culture - Final No Growth (<1,000 CFU/ML) Most Recent Lab Values WBC 8.5 10^3/ul (4.5-11.0) D 07/20/17 08:00 RBC 3.51 10^6/uL (3.5-6.1) 07/20/17 08:00 Hgb 10.8 g/dL (14.0-18.0) L 07/20/17 08:00 Hct 32.2 % (42.0-52.0) L 07/20/17 08:00 MCV 91.7 fl (80.0-105.0) 07/20/17 08:00 MCH 30.8 pg (25.0-35.0) 07/20/17 08:00 MCHC 33.5 g/dl (31.0-37.0) 07/20/17 08:00 RDW 14.8 % (11.5-14.5) H 07/20/17 08:00 Plt Count 212 10^3/uL (120.0-450.0) 07/20/17 08:00 MPV 10.1 fl (7.0-11.0) 07/20/17 08:00 Gran % 64.5 % (50.0-68.0) 07/20/17 08:00 Lymph % (Auto) 18.3 % (22.0-35.0) L 07/20/17 08:00 Tyler % (Auto) 12.3 % (1.0-6.0) H 07/20/17 08:00 Eos % (Auto) 4.7 % (1.5-5.0) 07/20/17 08:00 Baso % (Auto) 0.2 % (0.0-3.0) 07/20/17 08:00 Gran # 5.45 (1.4-6.5) 07/20/17 08:00 Lymph # (Auto) 1.6 (1.2-3.4) 07/20/17 08:00 Tyler # (Auto) 1.0 (0.1-0.6) H 07/20/17 08:00 Eos # (Auto) 0.4 (0.0-0.7) 07/20/17 08:00 Baso # (Auto) 0.02 K/mm3 (0.0-2.0) 07/20/17 08:00 PT 12.2 SECONDS (9.4-12.5) 07/17/17 05:16 INR 1.06 (0.93-1.08) 07/17/17 05:16 APTT 35.1 Seconds (25.1-36.5) 07/17/17 05:16 pO2 37 mm/Hg (30-55) 07/15/17 11:29 VBG pH 7.30 (7.32-7.43) L 07/15/17 11:29 VBG pCO2 39.0 (40-60) L 07/15/17 11:29 VBG HCO3 19.2 mmol/l (21-28) L 07/15/17 11:29 VBG Total CO2 20.4 mmol.L (22-28) L 07/15/17 11:29 VBG O2 Sat (Calc) 71.4 % (40-65) H 07/15/17 11:29 VBG Base Excess -6.7 mmol/L (0.0-2.0) L 07/15/17 11:29 VBG Potassium 4.7 mmol/L (3.6-5.2) 07/15/17 11:29 Sodium 138.0 mmol/L (132-148) 07/15/17 11:29 Chloride 109.0 mmol/L (98-107) H 07/15/17 11:29 Glucose 107 mg/dl (75-110) 07/15/17 11:29 Lactate 1.7 mmol/L (0.7-2.1) 07/15/17 11: FiO2 21.0 % 07/15/17 11:29 Sodium 139 mmol/L (132-148) 07/20/17 08:00 Potassium 3.9 mmol/L (3.6-5.0) 07/20/17 08:00 Chloride 99 mmol/L (98-107) 07/20/17 08:00 Carbon Dioxide 30 mmol/L (21-33) 07/20/17 08:00 Anion Gap 14 (10-20) 07/20/17 08:00 BUN 33 mg/dL (7-21) H 07/20/17 08:00 Creatinine 6.1 mg/dl (0.8-1.5) H 07/20/17 08:00 Est GFR ( Amer) 12 07/20/17 08:00 Est GFR (Non-Af Amer) 10 07/20/17 08:00 Random Glucose 99 mg/dL (70-110) 07/20/17 08:00 Serum Osmolality 317 mosm/kg (272-300) H 07/15/17 15:30 Calcium 10.0 mg/dL (8.4-10.5) 07/20/17 08:00 Phosphorus 4.4 mg/dL (2.5-4.5) 07/18/17 06:00 Magnesium 1.6 mg/dL (1.7-2.2) L 07/18/17 06:00 Iron 21 ug/dL (45-180) L 07/17/17 05:16 TIBC 283 ug/dL (261-462) 07/17/17 05:16 % Saturation 8 % (20-55) L 07/17/17 05:16 Ferritin 55.3 ng/mL 07/17/17 05:16 Total Bilirubin 0.2 mg/dL (0.2-1.3) 07/20/17 08:00 AST 46 U/L (17-59) 07/20/17 08:00 ALT 40 U/L (7-56) 07/20/17 08:00 Alkaline Phosphatase 97 U/L (38-126) 07/20/17 08:00 Lactate Dehydrogenase 525 U/L (333-699) 07/15/17 11:29 Total Creatine Kinase 182 U/L (35-230) 07/15/17 11:29 Troponin I 0.10 ng/mL 07/16/17 05:00 NT-Pro-B Natriuret Pep > 26256 pg/mL (0-450) H 07/15/17 11:29 Total Protein 7.2 g/dL (5.8-8.3) 07/20/17 08:00 Total Protein (PEP) 7.5 g/dL (6.1-8.1) 07/16/17 05:00 Albumin 3.5 g/dL (3.0-4.8) 07/20/17 08:00 Albumin (PEP) 3.4 g/dL (3.8-4.8) L 07/16/17 05:00 Globulin 3.6 gm/dL 07/20/17 08:00 Albumin/Globulin Ratio 1.0 (1.1-1.8) L 07/20/17 08:00 Znxoj-4-Kjluaqliz 0.5 g/dL (0.2-0.3) H 07/16/17 05:00 Kaows-2-Ytozzaguc 1.2 g/dL (0.5-0.9) H 07/16/17 05:00 Tais-1-Iupcacbw 0.5 g/dL (0.4-0.6) 07/16/17 05:00 Gszr-2-Ybvhuktu 0.5 g/dL (0.2-0.5) 07/16/17 05:00 Gamma Globulins 1.4 g/dL (0.8-1.7) 07/16/17 05:00 Abnorm Protein Band 1 TEST NOT PERFORMED 07/16/17 05:00 Abnorm Protein Band 2 TEST NOT PERFORMED 07/16/17 05:00 Abnorm Protein Band 3 TEST NOT PERFORMED 07/16/17 05:00 Triglycerides 98 mg/dL (35-160) 07/16/17 05:00 Cholesterol 160 mg/dL (130-200) 07/16/17 05:00 LDL Cholesterol Direct 61 mg/dL (0-129) 07/16/17 05:00 HDL Cholesterol 55 mg/dL (29-60) 07/16/17 05:00 Aldosterone 8 ng/dL 07/16/17 05:00 TSH 3rd Generation 2.08 mIU/mL (0.46-4.68) 07/15/17 11:30 Calcium (PTH Intact) 9.3 mg/dL (8.6-10.3) 07/17/17 05:16 PTH w/Ion &Tot Calcium 143 pg/mL (14-64) H 07/17/17 05:16 Plasma Metanephrine <25 pg/mL (<=57) 07/16/17 05:00 Plasma Normetanephrine 335 pg/mL (<=148) H 07/16/17 05:00 Plas Total Metaneph 335 pg/mL (<=205) H 07/16/17 05:00 Venous Blood Potassium 4.7 mmol/L (3.6-5.2) 07/15/17 11:29 Urine Color Yellow (YELLOW) 07/15/17 14:14 Urine Appearance Clear (CLEAR) 07/15/17 14:14 Urine pH 6.0 (4.7-8.0) 07/15/17 14:14 Ur Specific Temperance 1.020 (1.005-1.035) 07/15/17 14:14 Urine Protein 100 mg/dL (<30 mg/dL) H 07/15/17 14:14 Urine Glucose (UA) Negative mg/dL (NEGATIVE) 07/15/17 14:14 Urine Ketones Negative mg/dL (NEGATIVE) 07/15/17 14:14 Urine Blood Small (NEGATIVE) H 07/15/17 14:14 Urine Nitrate Negative (NEGATIVE) 07/15/17 14:14 Urine Bilirubin Negative (NEGATIVE) 07/15/17 14:14 Urine Urobilinogen 0.2 E.U./dL (<1 E.U./dL) 07/15/17 14:14 Ur Leukocyte Esterase Moderate Mike/uL (NEGATIVE) H 07/15/17 14:14 Urine RBC 0 - 2 /hpf (0-2) 07/15/17 14:14 Urine WBC 10 - 15 /hpf (0-6) 07/15/17 14:14 Ur Epithelial Cells 0 - 2 /hpf (0-5) 07/15/17 14:14 Urine Bacteria Few (NEG) 07/15/17 14:14 Urine Osmolality 289 mosm/kg (300-1000) L 07/15/17 17:12 Ur Random Creatinine 28 mg/dL 07/17/17 01:02 U Random Total Protein 34 mg/L 07/17/17 01:02 Ur Random Sodium 116 meq/L 07/15/17 17:12 Ur Random Potassium 13.0 meq/L 07/15/17 17:12 Urine Microalbumin 114.5 mg/L (0.0-16.6) H 07/16/17 05:00 Urine Opiates Screen Negative (NEGATIVE) 07/15/17 17:12 Urine Methadone Screen Negative (NEGATIVE) 07/15/17 17:12 Ur Barbiturates Screen Negative (NEGATIVE) 07/15/17 17:12 Ur Phencyclidine Scrn Negative (NEGATIVE) 07/15/17 17:12 Ur Amphetamines Screen Negative (NEGATIVE) 07/15/17 17:12 U Benzodiazepines Scrn Negative (NEGATIVE) 07/15/17 17:12 U Oth Cocaine Metabols Positive (NEGATIVE) H 07/15/17 17:12 U Cannabinoids Screen Negative (NEGATIVE) 07/15/17 17:12 Alcohol, Quantitative < 10 mg/dL (0-10) 07/15/17 15:30 CLARY & SPEP Interp See note 07/16/17 05:00 Serum Immunofixation Not detected (Not Detected) 07/16/17 05:00 FIDEL Screen Negative (Negative) 07/16/17 05:00 FIDEL Titer TEST NOT PERFORMED 07/16/17 05:00 FIDEL Titer 2 TEST NOT PERFORMED 07/16/17 05:00 FIDEL Pattern TEST NOT PERFORMED 07/16/17 05:00 FIDEL Pattern 2 TEST NOT PERFORMED 07/16/17 05:00 ANCA Screen Negative (NEGATIVE) 07/16/17 05:00 c-ANCA Titer TNP 07/16/17 05:00 Proteinase 3 (PR3) <1.0 AI (<1.0) 07/16/17 05:00 p-ANCA Titer TNP 07/16/17 05:00 Atypical p-ANCA Titer TNP 07/16/17 05:00 Myeloperoxidase Ab <1.0 AI (<1.0) 07/16/17 05:00 Glomerular Base Mem IgG <1.0 AI (<1.0) 07/16/17 05:00 Complement C3 138.0 mg/dL (88.0-165.0) 07/16/17 05:00 Complement C4 64.8 mg/dL (14.0-44.0) H 07/16/17 05:00 Greenup/Lambda Light Chain (()) 07/16/17 05:00 Free Greenup Light Chains 114.5 mg/L (3.3-19.4) H 07/16/17 05:00 Free Lambda Light Chain 130.6 mg/L (5.7-26.3) H 07/16/17 05:00 Free Greenup/Lambda Ratio 0.88 (0.26-1.65) 07/16/17 05:00 RPR Nonreactive (NONREACTIVE) 07/15/17 19:50 Hepatitis A IgM Ab Negative (NEGATIVE) 07/15/17 19:50 Hep Bs Antigen Negative (NEGATIVE) 07/15/17 19:50 Hep B Core IgM Ab Negative (NEGATIVE) 07/15/17 19:50 Hepatitis C Antibody Negative (NEGATIVE) 07/15/17 19:50 HIV 1&2 Ag/Ab, 4th Gen Nonreactive 07/15/17 19:50 Influenza Typ A,B (EIA) Negative for flu a/b (NEGATIVE) 07/15/17 10:20 Blood Type B POSITIVE 07/18/17 19:35 Blood Type Confirm B POSITIVE 07/18/17 19:46 Antibody Screen Negative 07/18/17 19:35 BBK History Checked No verified bt 07/18/17 19:35 - Hospital Course Hospital Course: 52 year old male with a past medical history of hypertension, chronic kidney disease, cocaine and alcohol abuse who presented to [facility] for 3 days of worsening dyspnea. Upon admission, he was found to have renal failure, hypertensive emergency, CHF exacerbation, a mild metabolic acidosis and proteinuria in the setting of concurrent B-andrew and cocaine use. He required a day in the ICU for a nitroglycerin drip to control his blood pressure initially. Otherwise, during the patient's hospital course, he underwent three HD dialysis sessions, got an AVF for long-term HD, was counselled on abstaining from drugs and medically optimized with the aid of nephrology, cardiology, infectious disease, social work, and case management. He was discharged with the below written prescriptions, instructions, and directions. He will follow up with his PMD and will be getting dialysis Monday, , Monday. Discharge Exam - Head Exam Head Exam: ATRAUMATIC, NORMAL INSPECTION, NORMOCEPHALIC - Eye Exam Eye Exam: Conjunctival injection, EOMI - ENT Exam ENT Exam: Mucous Membranes Moist, Normal Oropharynx - Respiratory Exam Respiratory Exam: Clear to PA & Lateral, NORMAL BREATHING PATTERN - Cardiovascular Exam Cardiovascular Exam: RRR, +S1, +S2 - GI/Abdominal Exam GI & Abdominal Exam: Normal Bowel Sounds. absent: Guarding - Extremities Exam Extremities exam: normal inspection - Neurological Exam Neurological exam: Alert, CN II-XII Intact, Oriented x3 - Psychiatric Exam Psychiatric exam: Normal Affect, Normal Mood - Skin Skin Exam: Dry, Intact, Normal Color, Warm Discharge Plan - Discharge Medications Prescriptions: amLODIPine [Norvasc] 10 mg PO DAILY #30 tab Aspirin [Aspirin Chewable] 81 mg PO DAILY #30 chew Atorvastatin [Lipitor] 20 mg PO DIN #30 tab Calcium Acetate [Phoslo] 667 mg PO WM #90 tab cloNIDine [Catapres] 0.1 mg PO Q8H #90 tab hydrALAZINE [Apresoline] 25 mg PO Q8H #90 tab Torsemide [Demadex] 20 mg PO BID #60 tab - Follow Up Plan Condition: CRITICAL Disposition: HOME/ ROUTINE Instructions: High Blood Pressure in Adults, Hemodialysis, Heart Failure, Adult (DC) Additional Instructions: 1) Patient to take any medication as prescribed. 2) Patient to be arranged for outpatient physical therapy. 3) Patient to take any medication as prescribed 4) Patient to follow up with PMD within the next week. 5) Patient to schedule follow up appointment at Dr. Tripp's (Vascular surgeon) office in 1 month to reassess maturation of the fistula: Typically takes 6 weeks for maturation for use. 6) OK to use Permacath 7) Dermabond (glue) stays untill it falls off naturally. Don't remove dermabond on L arm. 8) Patient provided with prescription for outpatient physical therapy for difficulty walking. 9) Patient informed of dialysis session and tranportation/logistics. 10) Patient to return to the ED for any worsening of symptoms. Referrals: Kalri Tripp MD [Staff Provider] - Eunice Stafford DO [Primary Care Provider] - <Ben Sheldon - Last Filed: 07/21/17 09:13> Provider - Provider Date of Admission: 07/15/17 12:21 Attending physician: Ben Sheldon MD Primary care physician: Eunice Stafford DO Hospital Course - Lab Results Lab Results: Micro Results 07/15/17 15:40 Naris MRSA Culture (Admit) - Final MRSA NOT DETECTED 07/15/17 14:14 Urine Urine Culture - Final No Growth (<1,000 CFU/ML) Most Recent Lab Values WBC 8.5 10^3/ul (4.5-11.0) D 07/20/17 08:00 RBC 3.51 10^6/uL (3.5-6.1) 07/20/17 08:00 Hgb 10.8 g/dL (14.0-18.0) L 07/20/17 08:00 Hct 32.2 % (42.0-52.0) L 07/20/17 08:00 MCV 91.7 fl (80.0-105.0) 07/20/17 08:00 MCH 30.8 pg (25.0-35.0) 07/20/17 08:00 MCHC 33.5 g/dl (31.0-37.0) 07/20/17 08:00 RDW 14.8 % (11.5-14.5) H 07/20/17 08:00 Plt Count 212 10^3/uL (120.0-450.0) 07/20/17 08:00 MPV 10.1 fl (7.0-11.0) 07/20/17 08:00 Gran % 64.5 % (50.0-68.0) 07/20/17 08:00 Lymph % (Auto) 18.3 % (22.0-35.0) L 07/20/17 08:00 Tyler % (Auto) 12.3 % (1.0-6.0) H 07/20/17 08:00 Eos % (Auto) 4.7 % (1.5-5.0) 07/20/17 08:00 Baso % (Auto) 0.2 % (0.0-3.0) 07/20/17 08:00 Gran # 5.45 (1.4-6.5) 07/20/17 08:00 Lymph # (Auto) 1.6 (1.2-3.4) 07/20/17 08:00 Tyler # (Auto) 1.0 (0.1-0.6) H 07/20/17 08:00 Eos # (Auto) 0.4 (0.0-0.7) 07/20/17 08:00 Baso # (Auto) 0.02 K/mm3 (0.0-2.0) 07/20/17 08:00 PT 12.2 SECONDS (9.4-12.5) 07/17/17 05:16 INR 1.06 (0.93-1.08) 07/17/17 05:16 APTT 35.1 Seconds (25.1-36.5) 07/17/17 05:16 pO2 37 mm/Hg (30-55) 07/15/17 11:29 VBG pH 7.30 (7.32-7.43) L 07/15/17 11:29 VBG pCO2 39.0 (40-60) L 07/15/17 11:29 VBG HCO3 19.2 mmol/l (21-28) L 07/15/17 11:29 VBG Total CO2 20.4 mmol.L (22-28) L 07/15/17 11:29 VBG O2 Sat (Calc) 71.4 % (40-65) H 07/15/17 11:29 VBG Base Excess -6.7 mmol/L (0.0-2.0) L 07/15/17 11:29 VBG Potassium 4.7 mmol/L (3.6-5.2) 07/15/17 11:29 Sodium 138.0 mmol/L (132-148) 07/15/17 11:29 Chloride 109.0 mmol/L (98-107) H 07/15/17 11:29 Glucose 107 mg/dl (75-110) 07/15/17 11:29 Lactate 1.7 mmol/L (0.7-2.1) 07/15/17 11: FiO2 21.0 % 07/15/17 11:29 Sodium 139 mmol/L (132-148) 07/20/17 08:00 Potassium 3.9 mmol/L (3.6-5.0) 07/20/17 08:00 Chloride 99 mmol/L (98-107) 07/20/17 08:00 Carbon Dioxide 30 mmol/L (21-33) 07/20/17 08:00 Anion Gap 14 (10-20) 07/20/17 08:00 BUN 33 mg/dL (7-21) H 07/20/17 08:00 Creatinine 6.1 mg/dl (0.8-1.5) H 07/20/17 08:00 Est GFR ( Amer) 12 07/20/17 08:00 Est GFR (Non-Af Amer) 10 07/20/17 08:00 Random Glucose 99 mg/dL (70-110) 07/20/17 08:00 Serum Osmolality 317 mosm/kg (272-300) H 07/15/17 15:30 Calcium 10.0 mg/dL (8.4-10.5) 07/20/17 08:00 Phosphorus 4.4 mg/dL (2.5-4.5) 07/18/17 06:00 Magnesium 1.6 mg/dL (1.7-2.2) L 07/18/17 06:00 Iron 21 ug/dL (45-180) L 07/17/17 05:16 TIBC 283 ug/dL (261-462) 07/17/17 05:16 % Saturation 8 % (20-55) L 07/17/17 05:16 Ferritin 55.3 ng/mL 07/17/17 05:16 Total Bilirubin 0.2 mg/dL (0.2-1.3) 07/20/17 08:00 AST 46 U/L (17-59) 07/20/17 08:00 ALT 40 U/L (7-56) 07/20/17 08:00 Alkaline Phosphatase 97 U/L (38-126) 07/20/17 08:00 Lactate Dehydrogenase 525 U/L (333-699) 07/15/17 11:29 Total Creatine Kinase 182 U/L (35-230) 07/15/17 11:29 Troponin I 0.10 ng/mL 07/16/17 05:00 NT-Pro-B Natriuret Pep > 08305 pg/mL (0-450) H 07/15/17 11:29 Total Protein 7.2 g/dL (5.8-8.3) 07/20/17 08:00 Total Protein (PEP) 7.5 g/dL (6.1-8.1) 07/16/17 05:00 Albumin 3.5 g/dL (3.0-4.8) 07/20/17 08:00 Albumin (PEP) 3.4 g/dL (3.8-4.8) L 07/16/17 05:00 Globulin 3.6 gm/dL 07/20/17 08:00 Albumin/Globulin Ratio 1.0 (1.1-1.8) L 07/20/17 08:00 Dpbvg-2-Zmqgtoabt 0.5 g/dL (0.2-0.3) H 07/16/17 05:00 Qgtvh-9-Hzrrncjhi 1.2 g/dL (0.5-0.9) H 07/16/17 05:00 Jymd-4-Cahodhjm 0.5 g/dL (0.4-0.6) 07/16/17 05:00 Vefh-2-Smyevepn 0.5 g/dL (0.2-0.5) 07/16/17 05:00 Gamma Globulins 1.4 g/dL (0.8-1.7) 07/16/17 05:00 Abnorm Protein Band 1 TEST NOT PERFORMED 07/16/17 05:00 Abnorm Protein Band 2 TEST NOT PERFORMED 07/16/17 05:00 Abnorm Protein Band 3 TEST NOT PERFORMED 07/16/17 05:00 Triglycerides 98 mg/dL (35-160) 07/16/17 05:00 Cholesterol 160 mg/dL (130-200) 07/16/17 05:00 LDL Cholesterol Direct 61 mg/dL (0-129) 07/16/17 05:00 HDL Cholesterol 55 mg/dL (29-60) 07/16/17 05:00 Renin 0.12 ng/mL/h (0.25-5.82) L 07/16/17 05:00 Aldosterone 8 ng/dL 07/16/17 05:00 Aldosterone/Renin Ratio 66.7 Ratio (0.9-28.9) H 07/16/17 05:00 TSH 3rd Generation 2.08 mIU/mL (0.46-4.68) 07/15/17 11:30 Calcium (PTH Intact) 9.3 mg/dL (8.6-10.3) 07/17/17 05:16 PTH w/Ion &Tot Calcium 143 pg/mL (14-64) H 07/17/17 05:16 Plasma Metanephrine <25 pg/mL (<=57) 07/16/17 05:00 Plasma Normetanephrine 335 pg/mL (<=148) H 07/16/17 05:00 Plas Total Metaneph 335 pg/mL (<=205) H 07/16/17 05:00 Venous Blood Potassium 4.7 mmol/L (3.6-5.2) 07/15/17 11:29 Urine Color Yellow (YELLOW) 07/15/17 14:14 Urine Appearance Clear (CLEAR) 07/15/17 14:14 Urine pH 6.0 (4.7-8.0) 07/15/17 14:14 Ur Specific Temperance 1.020 (1.005-1.035) 07/15/17 14:14 Urine Protein 100 mg/dL (<30 mg/dL) H 07/15/17 14:14 Urine Glucose (UA) Negative mg/dL (NEGATIVE) 07/15/17 14:14 Urine Ketones Negative mg/dL (NEGATIVE) 07/15/17 14:14 Urine Blood Small (NEGATIVE) H 07/15/17 14:14 Urine Nitrate Negative (NEGATIVE) 07/15/17 14:14 Urine Bilirubin Negative (NEGATIVE) 07/15/17 14:14 Urine Urobilinogen 0.2 E.U./dL (<1 E.U./dL) 07/15/17 14:14 Ur Leukocyte Esterase Moderate Mike/uL (NEGATIVE) H 07/15/17 14:14 Urine RBC 0 - 2 /hpf (0-2) 07/15/17 14:14 Urine WBC 10 - 15 /hpf (0-6) 07/15/17 14:14 Ur Epithelial Cells 0 - 2 /hpf (0-5) 07/15/17 14:14 Urine Bacteria Few (NEG) 07/15/17 14:14 Urine Osmolality 289 mosm/kg (300-1000) L 07/15/17 17:12 Ur Random Creatinine 28 mg/dL 07/17/17 01:02 U Random Total Protein 34 mg/L 07/17/17 01:02 Ur Random Sodium 116 meq/L 07/15/17 17:12 Ur Random Potassium 13.0 meq/L 07/15/17 17:12 Urine Microalbumin 114.5 mg/L (0.0-16.6) H 07/16/17 05:00 Urine Opiates Screen Negative (NEGATIVE) 07/15/17 17:12 Urine Methadone Screen Negative (NEGATIVE) 07/15/17 17:12 Ur Barbiturates Screen Negative (NEGATIVE) 07/15/17 17:12 Ur Phencyclidine Scrn Negative (NEGATIVE) 07/15/17 17:12 Ur Amphetamines Screen Negative (NEGATIVE) 07/15/17 17:12 U Benzodiazepines Scrn Negative (NEGATIVE) 07/15/17 17:12 U Oth Cocaine Metabols Positive (NEGATIVE) H 07/15/17 17:12 U Cannabinoids Screen Negative (NEGATIVE) 07/15/17 17:12 Alcohol, Quantitative < 10 mg/dL (0-10) 07/15/17 15:30 CLARY & SPEP Interp See note 07/16/17 05:00 Serum Immunofixation Not detected (Not Detected) 07/16/17 05:00 FIDEL Screen Negative (Negative) 07/16/17 05:00 FIDEL Titer TEST NOT PERFORMED 07/16/17 05:00 FIDEL Titer 2 TEST NOT PERFORMED 07/16/17 05:00 FIDEL Pattern TEST NOT PERFORMED 07/16/17 05:00 FIDEL Pattern 2 TEST NOT PERFORMED 07/16/17 05:00 ANCA Screen Negative (NEGATIVE) 07/16/17 05:00 c-ANCA Titer TNP 07/16/17 05:00 Proteinase 3 (PR3) <1.0 AI (<1.0) 07/16/17 05:00 p-ANCA Titer TNP 07/16/17 05:00 Atypical p-ANCA Titer TNP 07/16/17 05:00 Myeloperoxidase Ab <1.0 AI (<1.0) 07/16/17 05:00 Glomerular Base Mem IgG <1.0 AI (<1.0) 07/16/17 05:00 Complement C3 138.0 mg/dL (88.0-165.0) 07/16/17 05:00 Complement C4 64.8 mg/dL (14.0-44.0) H 07/16/17 05:00 Greenup/Lambda Light Chain (()) 07/16/17 05:00 Free Greenup Light Chains 114.5 mg/L (3.3-19.4) H 07/16/17 05:00 Free Lambda Light Chain 130.6 mg/L (5.7-26.3) H 07/16/17 05:00 Free Greenup/Lambda Ratio 0.88 (0.26-1.65) 07/16/17 05:00 RPR Nonreactive (NONREACTIVE) 07/15/17 19:50 Hepatitis A IgM Ab Negative (NEGATIVE) 07/15/17 19:50 Hep Bs Antigen Negative (NEGATIVE) 07/15/17 19:50 Hep B Core IgM Ab Negative (NEGATIVE) 07/15/17 19:50 Hepatitis C Antibody Negative (NEGATIVE) 07/15/17 19:50 HIV 1&2 Ag/Ab, 4th Gen Nonreactive 07/15/17 19:50 Influenza Typ A,B (EIA) Negative for flu a/b (NEGATIVE) 07/15/17 10:20 Blood Type B POSITIVE 07/18/17 19:35 Blood Type Confirm B POSITIVE 07/18/17 19:46 Antibody Screen Negative 07/18/17 19:35 BBK History Checked No verified bt 07/18/17 19:35 Attending/Attestation - Attestation I have personally seen and examined this patient.: Yes I have fully participated in the care of the patient.: Yes I have reviewed all pertinent clinical information, including history, physical exam and plan: Yes Notes (Text): 07/20/17 52 year old male with past medical history of hypertension, CKD and substance abuse (alcohol and cocaine) who presented with complaint of worsening shortness of breath. He was found to have hypertensive emergency, fluid overload and acute on chronic renal failure. He was seen by cardiology and nephrology. He was started on clonidine, norvasc, hydralazine and torsemide with improvement of blood pressure. He was also started on hemodialysis and had AVF placement. He was on antibiotics for UTI. Overall his symptoms have improved. He is discharged home to follow up with pmd. Follow up with electronic wirer. Continue with HD as per nephrology. Counselled on risks of continued substance abuse. Ben Sheldon MD Hospitalist.
[2017-07-20] MEDS: Pantoprazole 40 mg EC Tab PO SCH (17:26)
[2017-07-20 17:28] VITALS: BP 137/86; PULSE 70
[2017-07-20 17:54] LABS: ALDO/PRA RATIO 66.7 Ratio (0.9-28.9)
--- NOTE | 2017-07-21 08:55 | PQF CHF ---
This form is a permanent part of the medical record DR. AMATO, Please document type of CHF below. Clarification of your documentation is requested to better reflect the severity of illness and intensity of treatment of your patient. Indicators present [x] Diagnosis of CHF and/or history of CHF [x] BNP > 200 [] Imaging Finding of Pulmonary Edema /Pleural Effusions [x] Fluid/Volume Overload [] Pitting edema [] Ejection Fraction < 40% (Indicative of Systolic Heart Failure) [] Ejection Fraction > 40% (Indicative of Diastolic Heart Failure) [] Dyspnea / Orthopenea / Paroxysmal Nocturnal Dyspnea [] Other: Location in the medical record that reflects the above clinical findings: [] Treatment Provided: [] PHYSICIAN'S RESPONSE Based on your medical judgment of the clinical indicators outlined above, are you treating this patient for a known or suspected: [] Acute CHF [] Systolic [] Diastolic [] Combined [] Chronic CHF [] Systolic [] Diastolic [] Combined [] Acute on Chronic CHF []Systolic [] Diastolic [] Combined [] CHF due hypertension [] Acute systolic []Chronic systolic [] Acute/ chronic systolic [x] Other, please indicate: [x] Fluid overload secondary to End stage renal Disease [] If Unable to Determine, please check the box, sign and date. Present On Admission (POA) Indicator: [] Present at the time of admission [] Not present at the time of admission [] Clinically Undetermined In responding to this query, please exercise your independent professional judgment. The fact that a question is asked does not imply that any particular answer is desired or expected. Thank you for your clarification on this documentation. If you have any questions please call:[ ] * Thank you, [X ] ERENDIRA SCHMIDThybrid corn breeder PETE
--- NOTE | 2017-07-21 08:58 | CP.PCM.PN ---
Subjective - Date & Time of Evaluation Date of Evaluation: 07/20/17 Time of Evaluation: 12:00 - Subjective Subjective: Patient eating well; no shortness of breath; Objective - Vital Signs/Intake and Output Vital Signs (last 24 hours): Temp Pulse Resp BP Pulse Ox 98.3 F 70 20 137/86 96 07/20/17 07:34 07/20/17 17:25 07/20/17 07:34 07/20/17 17:25 07/20/17 07:34 Intake and Output: 07/21/17 07/21/17 06:59 18:59 Intake Total 440 Balance 440 - Labs Labs: 07/20/17 08:00 07/20/17 08:00 PT 12.2 SECONDS (9.4-12.5) 07/17/17 05:16 INR 1.06 (0.93-1.08) 07/17/17 05:16 APTT 35.1 Seconds (25.1-36.5) 07/17/17 05:16 - Constitutional Appears: Non-toxic, No Acute Distress - Eye Exam Eye Exam: absent: Scleral icterus - ENT Exam ENT Exam: Mucous Membranes Moist - Respiratory Exam Respiratory Exam: Clear to Ausculation Bilateral. absent: Respiratory Distress - Cardiovascular Exam Cardiovascular Exam: RRR, +S1, +S2 - GI/Abdominal Exam GI & Abdominal Exam: Soft. absent: Distended, Tenderness - Extremities Exam Additional comments: no leg edema; - Psychiatric Exam Psychiatric exam: Normal Mood. absent: Agitated - Skin Skin Exam: Warm. absent: Cyanosis Assessment and Plan (1) ESRD on hemodialysis Assessment & Plan: Newly declared ESRD; will continue with MWF HD schedule as outpatient; otherwise , stable electrolyte and volume status; Status: Acute (2) Hypertensive emergency Assessment & Plan: Resolved; will continue current anti-htn meds as outpatient; Status: Acute (3) CHF (congestive heart failure) Assessment & Plan: With mild systolic dysfunction on echo; agree with holding off on B-andrew for now with recent history of cocaine use; will re-assess as outpatient; also, hold off on ARB for now (EARL inhibitor allergy); Status: Acute (4) Metabolic acidosis Status: Acute (5) Proteinuria Status: Acute (6) Pyuria Status: Acute (7) Chronic kidney disease-mineral and bone disorder Assessment & Plan: Phos elevated, will continue phoslo for now; Status: Chronic (8) Anemia Assessment & Plan: Hgb decreasing but within goal for ESRD (10-11g); has iron deficiency; will start IV iron as outpatient on HD; Status: Acute
--- NOTE | 2017-07-22 12:03 | US ---
PROCEDURE: Upper extremity venous mapping HISTORY: Needs AV fistula creation COMPARISON: No prior similar study available for comparison. TECHNIQUE: Ultrasound venous evaluation of the upper extremities was performed for mapping and evaluation for AV fistula. FINDINGS: Right upper extremity: The right basilic vein at the distal forearm and at the rest measures 0 point 3 4 centimeter. The right basilic vein measures at the proximal forearm 0.34 centimeter and mid forearm 0.39 centimeter at the distal right forearm measures 0.24 centimeter. The right cephalic vein measures 0.5 centimeter at the upper arm 0.41 centimeter at the mid arm an 0.44 centimeter at the distal arm. Left upper extremity: The left basilic vein measures 0.38 centimeter at the level of the rest 0 point 3 4 centimeter at the proximal forearm 0.38 centimeter at the mid left forearm an 0.28 centimeter at the level of the elbow. The left cephalic vein measures 0.29 centimeter at the rest 0.25 centimeter at the proximal forearm 0.28 centimeter at the mid forearm 0.35 centimeter at the distal forearm and 0.5 centimeter at the level of the wrist. The left cephalic vein measures 0.46 centimeter at the upper arm 0.34 centimeter at the mid upper arm and 0.3 centimeter at the distal left upper arm. IMPRESSION: Ultrasound of the bilateral upper extremity venous system for mapping and evaluate pre AV fistula creation. The images and the vein measurement are available in the PAC system for evaluation.
== END 2017-07-20 21:14 | disposition home or self-care (01) | DRG 550 ==
LOC: EDBD → ED 09:48 → ERH 12:21 → CCU 15:14 → 2RNO 07-17 16:36 → 5RNO 07-19 19:55
PROVIDERS: ADMIT Internal Medicine; ATTEND Internal Medicine
PROC: 02H633Z Insertion of Infusion Device into Right Atrium, Percutaneous Approach (ICD-10-PCS; 2017-07-17)
PROC: B244ZZZ Ultrasonography of Right Heart (ICD-10-PCS; 2017-07-17)
PROC: 5A1D70Z Performance of Urinary Filtration, Intermittent, Less than 6 Hours Per Day (ICD-10-PCS; 2017-07-17)
PROC: 5A1D70Z Performance of Urinary Filtration, Intermittent, Less than 6 Hours Per Day (ICD-10-PCS; 2017-07-18)
PROC: 03180ZD Bypass Left Brachial Artery to Upper Arm Vein, Open Approach (ICD-10-PCS; principal; 2017-07-19 12:00)
PROC: 5A1D70Z Performance of Urinary Filtration, Intermittent, Less than 6 Hours Per Day (ICD-10-PCS; 2017-07-20)
DX: I13.2 Hypertensive heart and chronic kidney disease with heart failure and with stage 5 chronic kidney disease, or end stage renal disease (principal); N17.9 Acute kidney failure, unspecified; E87.2 Acidosis; E87.79 Other fluid overload; N18.6 End stage renal disease; I50.9 Heart failure, unspecified; F14.10 Cocaine abuse, uncomplicated; N39.0 Urinary tract infection, site not specified; E78.00 Pure hypercholesterolemia, unspecified; F10.10 Alcohol abuse, uncomplicated; I16.1 Hypertensive emergency; R80.9 Proteinuria, unspecified; D64.9 Anemia, unspecified; F12.10 Cannabis abuse, uncomplicated; F17.210 Nicotine dependence, cigarettes, uncomplicated; Z91.14 Patient's other noncompliance with medication regimen

== ENCOUNTER 2017-12-14 11:17 | Day surgery (SDC) | payer OTHER ==
[2017-12-07 11:17] VITALS: BMI 25.2
[2017-12-14 11:41] LABS: BASO # 0.03 K/mm3 (0.0-2.0); BASO % 0.6 % (0.0-3.0); EOS # 0.2 (0.0-0.7); EOS % 4.5 % (1.5-5.0); GRAN # 2.47 (1.4-6.5); GRAN % 52.9 % (50.0-68.0); HEMOGLOBIN 10.9 g/dL (14.0-18.0); LYMPH # 1.5 (1.2-3.4); LYMPH % 31.3 % (22.0-35.0); MEAN CELL VOLUME 96.3 fl (80.0-105.0); MEAN CORPUSCULAR HEMOGLOBIN 33.2 pg (25.0-35.0); MEAN CORPUSCULAR HGB CONC 34.5 g/dl (31.0-37.0); MEAN PLATELET VOLUME 9.5 fl (7.0-11.0); MONO # 0.5 (0.1-0.6); MONO % 10.7 % (1.0-6.0); RBC 3.28 10^6/uL (3.5-6.1); RED CELL DISTRIBUTION WIDTH 14.4 % (11.5-14.5); WHITE BLOOD COUNT 4.7 10^3/ul (4.5-11.0)
[2017-12-14 11:45] LABS: INR 0.95; PROTHROMBIN TIME 10.9 SECONDS (9.4-12.5)
[2017-12-14 11:47] LABS: PARTIAL THROMBOPLASTIN TIME 32.7 Seconds (25.1-36.5)
[2017-12-14 11:51] LABS: CALCIUM 9.7 mg/dL (8.4-10.5)
[2017-12-14] MEDS ORDERED: Lidocaine PF 2% (5 ml) Inj (For Cardiac Arrhy) ONE (11:57)
[2017-12-14] MEDS ORDERED: Midazolam 2 MG/2 ML VIAL ONE (12:29)
[2017-12-14] MEDS ORDERED: Oxycodone/Acetaminophen 5/325 mg Tab PO PRN (13:05)
[2017-12-14] MEDS ORDERED: Sodium Chloride 0.45% 1,000 ML IV SCH (13:15)
[2017-12-14 14:07] VITALS: RESP 18; TEMP 98.2; O2SAT 98
[2017-12-14 14:34] VITALS: BP 138/78; PULSE 66
--- NOTE | 2017-12-14 15:42 | VASCULAR ---
PROCEDURE: Removal of tunneled right IJ dialysis catheter. CLINICAL HISTORY: End-stage renal disease. Malfunctioning tunneled right IJ dialysis catheter. Functioning left upper extremity AV access. PHYSICIAN(S): Zeus Lieberman M.D. TECHNIQUE: The relative risks and indications of the procedure were explained to the patient and consent obtained. The patient was placed supine on the arteriogram table and the tunneled right IJ dialysis catheter prepped and draped in the usual sterile fashion. Conscious sedation and monitoring were provided throughout the procedure by nurse. 1% Xylocaine was used to anesthetize skin and soft tissues along the tunnel. The tunnel and cuff were bluntly dissected. The catheter was removed and pressure applied at the venous insertion site. A single interrupted suture was placed at the exit site. The patient tolerated the procedure well. IMPRESSION: 1. Removal of the patient's tunneled right IJ dialysis catheter.
== END 2017-12-14 15:00 | disposition home or self-care (01) ==
LOC: SDS 11:17
PROVIDERS: ATTEND Radiology Vascular & Interventional Radiology
DX: Z49.01 Encounter for fitting and adjustment of extracorporeal dialysis catheter (principal); N18.6 End stage renal disease; I12.0 Hypertensive chronic kidney disease with stage 5 chronic kidney disease or end stage renal disease; Z99.2 Dependence on renal dialysis
CPT/HCPCS: 36415; 36589; 80048; 85025; 85610; 85730; 99152; J1644; J2250; J2405; J3010